=== PATIENT | female | born 1975 | race Two or more races ===

== ENCOUNTER 2024-03-06 09:40 | Outpatient (OUT) | payer OTHER, SELFPAY ==
--- NOTE | 2024-03-06 09:52 | MM_ITS ---
Patient Name: JIM HUERTA MR#: [id number] : 1975 Exam Date: 03/06/2024 Ordering Doctor: BHAVIN RAMSAY RADIOLOGY REPORT PROCEDURE: MM TOMOSYNTHESIS SCREENING BI COMPARISON: MG MAMM SCREEN 3D SHELL CAD, 09/03/2022. MG MAMM SCREEN SHELL W CAD, 03/21/2019. MG MAMM SCREEN SHELL W CAD, 01/18/2018. MG MAMM SHELL SCRN W CAD DIG, 09/22/2016. INDICATIONS: screening Calculator Name NCI Breast Cancer Risk Assessment Tool 5 Year Breast Cancer Risk 0.80% Lifetime Breast Cancer Risk 6.30% Personal Breast Cancer No Personal Ovarian Cancer No Treatments None Family Cancers None LOCATION: [facility] BREAST COMPOSITION: There are scattered areas of fibroglandular density. FINDINGS: DIAGNOSTIC CATEGORY 1--NEGATIVE. RIGHT BREAST: No significant suspicious finding. No significant change has occurred. LEFT BREAST: No significant suspicious finding. No significant change has occurred. RECOMMENDATIONS: ROUTINE MAMMOGRAM AND CLINICAL EVALUATION IN 12 MONTHS. PLEASE NOTE: A NORMAL MAMMOGRAM DOES NOT EXCLUDE THE POSSIBILITY OF BREAST CANCER. A CLINICALLY SUSPICIOUS PALPABLE LUMP SHOULD BE BIOPSIED. Dictated by: Jamari Mariano M.D. on 03/07/2024 at 14:28 Approved by: Jamari Mariano M.D. on 03/07/2024 at 14:31
== END 2024-03-06 09:41 | disposition home or self-care (01) ==
LOC: MAMMO 09:43
PROVIDERS: PCP Nurse Practitioner; Visit Provider Nurse Practitioner
DX: Z12.31 Encounter for screening mammogram for malignant neoplasm of breast (principal)
CPT/HCPCS: 77063; 77067

== ENCOUNTER 2024-06-08 07:31 | Outpatient (OUT) | payer OTHER, SELFPAY ==
--- OUTSIDE RECORDS SUMMARY | 2024-06-08 07:34 | XMS_ITS | CCD ---
Author Organization [facility] Care Team Providers Care Conveyor Worker Name Role Phone LORENAC, DR GILBERT Admitting Unavailable MISC, DR GILBERT Attending Unavailable LOPEZBHAVIN Primary Care Unavailable [place], DR Mason Consulting Unavailable LOPEZBHAVIN Consulting Unavailable MISC, DR GILBERT Admitting Unavailable MISC, DR GILBERT Attending Unavailable LOPEZBHAVIN Primary Care Unavailable MISC, DR GILBERT Consulting Unavailable [employer] ACCOUNTANT-CABLE TELEVISION LINE TECHNICIAN, Bhavin J Primary Care Provid er CHELSEA GIRALDO Attending Unavailable BHAVIN LOPEZ Referring Unavailable BHAVIN LOPEZ Primary Care Unavailable MACI BACH Admitting Unavailable MACI BACH Attending Unavailable LOPEZRENZOBHAVIN Prashant Primary Care Unavailable LOPEZRENZOBHAVIN Prashant Primary Care Unavailable JOELLE FREEMAN Attending Unavailable BHAVIN LOPEZ Attending Unavailable LOPEZBHAVIN CASTRO Referring Unavailable LOPEZ, BHAVIN Prashant Primary Care Unavailable BHAVIN LOPEZ Attending Unavailable LOPEZTURNER CASTROE Prashant Referring Unavailable LOPEZ, BHAVIN J Primary Care Unavailable BHAVIN LOPEZ Attending Unavailable BHAVIN LOPEZ Referring Unavailable LOPEZRENZOBHAVIN J Primary Care Unavailable Allergies Allergy Classification Reported Allergen(s) Allergy Type Date of Onset Reaction(s) Facility (4 sources) Lisinopril; Translations: [LISINOPRIL] Drug [facility]ergy [facility]-2018 [facility] Phone: Medications Current Medications Medication Drug Class(es) Dates Sig (Normalized) Sig (Original) amLODIPine 5 mg oral tablet (3 sources) Dihydropyridine Calcium Channel Char Start: 10-12-2023 End: 12-14-2023 take 1 tablet by mouth in the morning amLODIPine (NORVASC) 5 mg tablet Indications: Essential hypertension TAKE 1 TABLET(5 MG) BY MOUTH IN THE MORNING 90 tablet 1 12/14/2023 Active blood-glucose meter misc (2 sources) Start: 04-28-2018 blood-glucose meter misc Indications: Elevated glucose Select type paid for by insurance 1 each 0 04/28/2018 Active glyBURIDE 2.5 mg / metFORMIN hydrochloride 500 mg oral tablet (2 sources) Biguanide, Sulfonylurea Start: 12-14-2023 take 1 tablet by mouth once in the morning glyBURIDE-metFORMIN (GLUCOVANCE) 2.5-500 mg per tablet Indications: Type 2 diabetes mellitus without complication, without long-term current use of insulin ([facility]) Take 1 tablet by mouth in the morning and 1 tablet in the evening. Take with meals. 180 tablet 1 12/14/2023 Active norethindrone 0.35 mg oral tablet (2 sources) Start: 04-27-2023 take 1 tablet by mouth in the morning norethindrone (INCASSIA) 0.35 mg tablet Indications: Surveillance of contraceptive pill Take 1 tablet (0.35 mg total) by mouth in the morning. 84 tablet 3 04/27/2023 Active rosuvastatin calcium 5 mg oral tablet (3 sources) HMG-CoA Reductase Inhibitor Start: 09-01-2023 End: 12-16-2023 take 1 tablet by mouth in the morning rosuvastatin (CRESTOR) 5 mg tablet Indications: Mixed hyperlipidemia TAKE 1 TABLET(5 MG) BY MOUTH IN THE MORNING 90 tablet 2 12/16/2023 Active Completed/Discontinued Medications Medication Drug Class(es) Dates Sig (Normalized) Sig (Original) 24 hr metFORMIN hydrochloride 750 mg extended release oral tablet (1 source) Biguanide Start: 10-12-2023 End: 12-14-2023 take 1 tablet by mouth once daily at mealtime metFORMIN XR (GLUCOPHAGE XR) 750 mg 24 hr tablet Indications: Type 2 diabetes mellitus without complication, without long-term current use of insulin ([facility]) TAKE 1 TABLET(750 MG) BY MOUTH EVERY MORNING AND IN THE EVENING WITH MEALS 180 tablet 1 10/12/2023 12/14/2023 Discontinued (Therapy completed) Problems Active Problems Problem Classification Problem Date Documented Da te Episodic/Chronic Complications of surgical procedures or medical care (1 source) Postprocedural hemorrhage of a digestive system organ or structure following a digestive system procedure; Translations: [Postprocedural hemorrhage of a digestive system organ or structure following a digestive system procedure] Onset: 06-06-2024 Episodic Diabetes mellitus without complication (5 sources) Type 2 diabetes mellitus without complication; Translations: [Type 2 diabetes mellitus without complications] Onset: 04-29-2020 12-13-2023 Chronic Disorders of lipid metabolism (2 sources) Mixed hyperlipidemia; Translations: [Mixed hyperlipidemia] 12-14-2023 Chronic Essential hypertension (5 sources) Essential hypertension; Translations: [Essential (primary) hypertension] Onset: 04-29-2020 12-14-2023 Chronic Gastrointestinal hemorrhage (1 source) Rectal hemorrhage Onset: 06-06-2024 Episodic Other and unspecified benign neoplasm (1 source) Polyp of colon; Translations: [Polyp of colon] Onset: 06-02-2024 Episodic Other gastrointestinal disorders (1 source) Other fecal abnormalities; Translations: [Other fecal abnormalities] Onset: 05-22-2024 Episodic Other nutritional; endocrine; and metabolic disorders (2 sources) Body mass index 30+ - obesity; Translations: [Obesity, unspecified] Onset: 04-15-2022 04-15-2022 Chronic Other nutritional; endocrine; and metabolic disorders (1 source) Other obesity due to excess calories; Translations: [Other obesity due to excess calories] Onset: 06-06-2024 Chronic Other nutritional; endocrine; and metabolic disorders (1 source) Body mass index (BMI) 35.0-35.9, adult; Translations: [Body mass index (BMI) 35.0-35.9, adult] Onset: 06-06-2024 Chronic Other nutritional; endocrine; and metabolic disorders (1 source) Weight loss Onset: 06-06-2024 Episodic Other screening for suspected conditions (not mental disorders or infectious disease) (4 sources) Encounter for screening mammogram for malignant neoplasm of breast; Translations: [Encounter for screening for malignant neoplasm of small intestine] Onset: 09-03-2022 Episodic Unclassified (3 sources) CONTACT W/AND (SUSP) EXPOS COVID-19; Translations: [CONTACT W/AND (SUSP) EXPOS COVID-19] Onset: 10-09-2021 Unclassified (1 source) positive cologuard Onset: 06-02-2024 Past or Other Problems Problem Classification Problem Date Documented Da te Episodic/Chronic Mood disorders (2 sources) Mood disorders Onset: 12-14-2023 12-14-2023 Other upper respiratory infections (1 source) Acute upper respiratory infection, unspecified; Translations: [ACUTE UP RESPIRATORY INFECTION UNS] Onset: 10-09-2021 Episodic Unclassified (1 source) CONTACT W/AND (SUSP) EXPOS COVID-19; Translations: [CONTACT W/AND (SUSP) EXPOS COVID-19] Onset: 10-06-2021 Unclassified (2 sources) Onset: 12-14-2023 12-14-2023 Results Test Name Value Interpretation Reference Range Facil ity BASIC METABOLIC PANLon 06-06 Anion gap [Moles/Vol] 8 mmol/L Normal 5-15 [facility] Comment on above: Performed By: #### P INR, 35164-7, BMP, CBCA #### [facility] ([id number]) [address] [place] [address] 85737 Calcium [Mass/Vol] 8.7 mg/dL Normal 8.5-10.5 [facility] Comment on above: Performed By: #### P INR, 58565-7, BMP, CBCA #### [facility] ([id number]) [address] [place] [address] 15548 Chloride [Moles/Vol] 101 mmol/L Normal 98-109 [facility] Comment on above: Performed By: #### P INR, 49095-4, BMP, CBCA #### [facility] ([id number]) [address] [place] [address] 58548 CO2 [Moles/Vol] 28 mmol/L Normal 22-32 [facility] Comment on above: Performed By: #### P INR, 28291-2, BMP, CBCA #### [facility] ([id number]) [address] [place] [address] 17229 Creatinine [Mass/Vol] 0.60 mg/dL Normal 0.40-1.00 [facility] Comment on above: Result Comment: METH OD TRACEABLE TO IDMS STANDARD Performed By: #### P INR, 03943-7, BMP, CBCA #### [facility] ([id number]) [address] [place] [address] 14654 eGFR (CKD-EPI) NON-RACE DEPENDENT >90 Normal >59 [facility] Comment on above: Result Comment: Reported eGFR is based on the CKD-EPI 2020 equation that does not use a race coefficient. Performed By: #### P INR, 76281-4, BMP, CBCA #### [facility] ([id number]) [address] [place] [address] 71795 Glucose [Mass/Vol] 147 mg/dL High 65-99 [facility] Comment on above: Performed By: #### P INR, 25372-6, BMP, CBCA #### [facility] ([id number]) [address] [place] [address] 84844 Potassium [Moles/Vol] 3.1 mmol/L Low 3.5-5.0 [facility] Comment on above: Performed By: #### P INR, 38008-6, BMP, CBCA #### [facility] ([id number]) [address] [place] [address] 65618 Sodium [Moles/Vol] 137 mmol/L Normal 134-146 [facility] Comment on above: Performed By: #### P INR, 59021-2, BMP, CBCA #### [facility] ([id number]) [address] [place] [address] 61386 Urea nitrogen [Mass/Vol] 8 mg/dL Normal 5-23 [facility] Comment on above: Performed By: #### P INR, 11026-1, BMP, CBCA #### [facility] ([id number]) [address] [place] [address] 03708 CBC AND AUTO DIFFon 08-20-20 24 ABSOLUTE BASOPHIL 0.1 X10E9/L Normal 0.0-0.2 [facility] Comment on above: Performed By: #### P INR, 44370-5, BMP, CBCA #### [facility] ([id number]) [address] [place] [address] 54367 ABSOLUTE NEUTROPHIL 5.3 X10E9/L Normal 1.5-6.6 [facility] Comment on above: Performed By: #### P INR, 07077-1, BMP, CBCA #### [facility] ([id number]) [address] [place] [address] 06427 Basophils/100 WBC (Bld) 1.2 % Normal [facility] Comment on above: Performed By: #### P INR, 18039-1, BMP, CBCA #### [facility] ([id number]) [address] [place] [address] 86426 Eosinophils (Bld) [#/Vol] 0.1 10*3/uL Normal 0.0-0.4 [facility] Comment on above: Performed By: #### P INR, 36732-2, BMP, CBCA #### [facility] ([id number]) [address] [place] [address] 33125 Eosinophils/100 WBC (Bld) 1.5 % Normal [facility] Comment on above: Performed By: #### P INR, 80938-1, BMP, CBCA #### [facility] ([id number]) [address] [place] [address] 37761 Erythrocyte distribution width (RBC) [Ratio] 14.2 % Normal 11.5-15.0 [facility] Comment on above: Performed By: #### P INR, 33030-7, BMP, CBCA #### [facility] ([id number]) [address] [place] [address] 68151 Hematocrit (Bld) [Volume fraction] 41.7 % Normal 35-47 [facility] Comment on above: Performed By: #### P INR, 98202-7, BMP, CBCA #### [facility] ([id number]) [address] [place] [address] 86384 Hemoglobin (Bld) [Mass/Vol] 13.9 g/dL Normal 11.7-15.5 [facility] Comment on above: Performed By: #### P INR, 66849-9, BMP, CBCA #### [facility] ([id number]) [address] [place] [address] 39884 Lymphocytes (Bld) [#/Vol] 1.1 10*3/uL Normal 1.0-3.5 [facility] Comment on above: Performed By: #### P INR, 32142-1, BMP, CBCA #### [facility] ([id number]) [address] [place] [address] 47664 Lymphocytes/100 WBC (Bld) 15.2 % Normal [facility] Comment on above: Performed By: #### P INR, 96667-0, BMP, CBCA #### [facility] ([id number]) [address] [place] [address] 40170 MCH (RBC) [Entitic mass] 28.2 pg Normal 27-34 [facility] Comment on above: Performed By: #### P INR, 66823-7, BMP, CBCA #### [facility] ([id number]) [address] [place] [address] 16159 MCHC (RBC) [Mass/Vol] 33.2 g/dL Normal 32-36 [facility] Comment on above: Performed By: #### P INR, 21057-3, BMP, CBCA #### [facility] ([id number]) [address] [place] [address] 48006 MCV (RBC) [Entitic vol] 85 fL Normal 80-100 [facility] Comment on above: Performed By: #### P INR, 10416-1, BMP, CBCA #### [facility] ([id number]) [address] [place] [address] 64143 Monocytes (Bld) [#/Vol] 0.5 10*3/uL Normal 0-0.9 [facility] Comment on above: Performed By: #### P INR, 06155-5, BMP, CBCA #### [facility] ([id number]) [address] [place] [address] 87804 Monocytes/100 WBC (Bld) 6.6 % Normal [facility] Comment on above: Performed By: #### P INR, 25294-4, BMP, CBCA #### [facility] ([id number]) [address] [place] [address] 92776 Neutrophils/100 WBC (Bld) 75.5 % Normal [facility] Comment on above: Performed By: #### P INR, 42894-1, BMP, CBCA #### [facility] ([id number]) [address] [place] [address] 49825 Platelet mean volume (Bld) [Entitic vol] 9.3 fL Normal 7-12 [facility] Comment on above: Performed By: #### P INR, 75405-4, BMP, CBCA #### [facility] ([id number]) [address] [place] [address] 81962 Platelets (Bld) [#/Vol] 283 10*3/uL Normal 150-450 [facility] Comment on above: Performed By: #### P INR, 62106-0, BMP, CBCA #### [facility] ([id number]) [address] [place] [address] 68209 RBC COUNT 4.91 X10E12/L Normal 3.80-5.20 [facility] Comment on above: Performed By: #### P INR, 85144-2, BMP, CBCA #### [facility] ([id number]) [address] [place] [address] 75617 WBC (Bld) [#/Vol] 7.0 10*3/uL Normal 4.0-11.0 [facility] Comment on above: Performed By: #### P INR, 63281-0, BMP, CBCA #### [facility] ([id number]) [address] [place] [address] 92515 PROTIME AND INRon 06-06-2024 INR Coag (PPP) [Relative time] 1.0 {INR} Normal 0.8-1.1 [facility] Comment on above: Performed By: #### P INR, 70412-3, BMP, CBCA #### [facility] ([id number]) [address] [place] [address] 94718 PT Coag (PPP) [Time] 11.1 s Normal 9.8-13.2 [facility] Comment on above: Result Comment: NEW REFERENCE RANGE Performed By: #### P INR, 88634-0, BMP, CBCA #### [facility] ([id number]) [address] [place] [address] 24366 aPTT Coag (PPP) [Time]on aPTT Coag (Bld) [Time] 34 s Normal 26-37 [facility] Comment on above: Result Comment: NEW REFERENCE RANGE Performed By: #### P INR, 24199-5, BMP, CBCA #### [facility] ([id number]) [address] [place] [address] 40281 Glucose Glucometer (BldC) [M ass/Vol]on 06-02-2024 Glucose [Mass/Vol] 97 mg/dL Normal 65-99 [facility] Surgical Pathologyon 024 Surgical Pathology Normal [facility] Comment on above: Result Comment: [facility] [address] [place] [address] Surgical Pathology Consultation Patient Name:JIM HUERTA:1975 (Age: 48)Gender:FTaken:4Reported:4Physician(s):Maci Bach MD ([phone])Copy To: Rec. #:[id number]: #[id number] Final Pathologic Diagnosis 1. Colon at 35 cm, polypectomy: Fragments of tubular adenoma. 2. Colon at 40 cm, polypectomy: Tubular adenoma. 3. Colon at 20 cm, polypectomy: Tubular adenoma, 1 cm. Lesional cells present at the peripheral stalk tissue edge. 4. Colon at 15 cm, polypectomy: Hyperplastic polyp. Report Electronically Signed Out 06/06/2024paty Cisneros MD Interpretation performed [facility] [place] [address], License number: [id number]. Clinical History Positive cologuard. 1. Snared a polyp at 35cm. 2. Snared a polyp at 40cm. 3. Snared a polyp at 20cm. 4. Cold biopsy of a polyp at 15cm. Gross Description 1. Received in formalin labeled BRADLEY, polyp at 35 cm are seven light bush soft tissue bits admixed with friable vegetative material, 0.1-0.3 cm. The specimen is filtered and entirely submitted in a single cassette. (1, ns, [id number],m8) DM. 2. .Received in formalin labeled BRADLEY, polyp at 40 cm are four light bush soft tissue bits, 0.1-0.3 cm. The specimen is filtered and entirely submitted in a single cassette. (1, ns, [id number],m8) DM. 3. Received in formalin labeled BRADLEY, polyp at 20 cm is a bush pedunculated polyp, 1.0 x 0.8 x 0.5 cm. The resection margin is inked black. The polyp is serially sectioned and entirely submitted in a single cassette. (1, ns, [id number],m8) DM. 4. Received in formalin labeled BRADLEY, polyp at 15 cm is a light bush soft tissue bit, 0.3 cm. The specimen is filtered and entirely submitted in a single cassette. (1, ns, [id number],m8) DM. dm/06/05/2024GP Specimen(s) Received 1: Colon polyp at 35cm 2: Colon polyp at 40cm 3: Colon polyp at 20cm 4: Colon polyp at 15cm Fee Codes(s): 1; 11553 2; 20431 3; 57452 4; 35640 POCT Hemoglobin A1con 2023 HbA1c (Bld) [Mass fraction] 7.3 g/dL Abnormal 4 - 7 g/dL [employer] Interpretation and review of laboratory results Abnormal TIMPIK System MG MAMM SCREEN 3D SHELL CADon 09-03-2022 MG MAMM SCREEN 3D SHELL CAD Patient: JIM HUERTA Exam Date: 09/03/2022 : 1975 Gender:F Ordering : BHAVIN LOPEZ Admission #: [id number] Family : MILAGROS MORGAN Order #: [id number] CLICK HERE TO VIEW EXAM RADIOLOGY REPORT PROCEDURE: MAMMOGRAM SCREENING 3D BILATERAL CAD COMPARISON: MG MAMM SCREEN SHELL W CAD, 01/18/2018. MG MAMM SCREEN SHELL W CAD, 03/21/2019. INDICATIONS: Screening mammography Calculator Name NCI Breast Cancer Risk Assessment Tool 5 Year Breast Cancer Risk 0.70% Lifetime Breast Cancer Risk 6.40% Personal Breast Cancer No Personal Ovarian Cancer No Treatments None Family Cancers None LOCATION: [facility] BREAST COMPOSITION: Scattered areas fibroglandular density. FINDINGS: DIAGNOSTIC CATEGORY 1--NEGATIVE. NO CHANGE FROM COMPARISON ASSESSMENT. Scattered benign-appearing calcifications are present. Scattered benign-appearing lymph nodes are present. RIGHT BREAST: No significant suspicious finding. LEFT BREAST: No significant suspicious finding. RECOMMENDATIONS: ROUTINE MAMMOGRAM AND CLINICAL EVALUATION IN 12 MONTHS. PLEASE NOTE: A NORMAL MAMMOGRAM DOES NOT EXCLUDE THE POSSIBILITY OF BREAST CANCER. A CLINICALLY SUSPICIOUS PALPABLE LUMP SHOULD BE BIOPSIED. Dictated by: Marlon Narayan MD on 09/04/2022 at 10:30 Approved by: Marlon Narayan MD on 09/04/2022 at 10:32 Normal [facility] Covid-19 PCR (CVDTBH)on 09-18 SARS-CoV-2 (COVID-19) RNA MICHELLE+probe Ql (Unsp spec) Not detected Normal NOT DETECTED [facility] Comment on above: Result Comment: This test is not yet approved or cleared by the [place] FDA. When there are no FDA-approved or cleared tests available, and other criteria are met, FDA can make tests available under an emergency access mechanism called an Emergency Use Authorization (EUA). The EUA for this test is supported by the [place] of Health and Human Service's (HHS's) declaration that circumstances exist to justify the emergency use of in vitro diagnostics for the detection and/or diagnosis of the virus that causes COVID-19. This EUA will remain in effect (meaning this test can be used) for the duration of the COVID-19 declaration justifying emergency of IVDs, unless it is terminated or revoked by FDA (after which the test may no longer be used). When diagnostic testing is negative, the possibility of a false negative should be considered in the context of a patient's recent exposures and the presence of clinical signs and symptoms consistent with SARS-CoV-2. Performed By: #### C [facility] #### [facility] [address] [place] [address] Dr. Jimmy Estrada Vital Signs Date Time Vital Sign Value Performing Clinician Oswaldoi nydia 12-14-2023 15:35-0500 Body height 165.1 cm Bhavin Lopez APRN-CABLE TELEVISION LINE TECHNICIAN Work Phone: [facility] 12-14-2023 15:35-0500 Body mass index (BMI) [Ratio] 35.98 kg/m2 Bhavin Lopez APRN-CABLE TELEVISION LINE TECHNICIAN Work Phone: [facility] 12-14-2023 15:35-0500 Body temperature 98.6 [degF] Bhavin Lopez APRN-CABLE TELEVISION LINE TECHNICIAN [facility] 12-14-2023 15:35-0500 Body weight 98.07 kg Bhavin Lopez APRN-CABLE TELEVISION LINE TECHNICIAN Work Phone: [facility] [employer] [facility] 12-14-2023 15:35-0500 Diastolic blood pressure 86 mm[Hg] Bhavin Lopez COMPANY ACCOUNTANT-CABLE TELEVISION LINE TECHNICIAN Work Phone: [facility] 12-14-2023 15:35-0500 Heart rate 70 /min Bhavin Lopez COMPANY ACCOUNTANT-CABLE TELEVISION LINE TECHNICIAN Work Phone: [facility] 12-14-2023 15:35-0500 Respiratory rate 20 /min Bhavin Lopez COMPANY ACCOUNTANT-CABLE TELEVISION LINE TECHNICIAN Work Phone: [facility] 12-14-2023 15:35-0500 SaO2% (BldA) [Mass fraction] 95 % Bhavin Lopez COMPANY ACCOUNTANT-CABLE TELEVISION LINE TECHNICIAN Work Phone: [facility] 12-14-2023 15:35-0500 Systolic blood pressure 130 mm[Hg] Bhavin Lopez COMPANY ACCOUNTANT-CABLE TELEVISION LINE TECHNICIAN Work Phone: [facility] Encounters Encounter Date Encounter Type Care Provider Facility Start: 06-06-2024 End: 06-06-[address] [facility] Start: 06-06-2024 End: 06-06-2024 Emergency department patient visit [facility] Start: 06-02-2024 End: 06-02-2024 Evaluation and management of inpatient [facility] Start: 06-01-2024 End: 06-01-2024 ambulatory [facility] Start: 04-18-2024 End: 04-18-2024 ambulatory CHELSEA GIRALDO Not Available Start: 03-16-2024 End: 03-16-[address] [facility] Start: 12-16-2023 Refill Bhavin Prashant castro COMPANY ACCOUNTANT-CABLE TELEVISION LINE TECHNICIAN Work Phone: [facility] Comment on above: Mixed hyperlipidemia Start: 12-14-2023 End: 12-14-2023 Office outpatient visit 25 minutes Bhavin Lopez COMPANY ACCOUNTANT-CABLE TELEVISION LINE TECHNICIAN Work Phone: [facility] - [facility] Comment on above: Type 2 diabetes yvonne itus without complication, without long- term current use of insulin ([facility]) (Primary Dx); Essential hypertension; Mixed hyperlipidemia Start: 12-14-2023 End: 12-14-2023 ambulatory BHAVINDebbie MARKSILLO [facility] Start: 09-03-2022 End: 09-04-[address] DOCTOR CHAVEZ Facility:[facility] Start: 10-06-2021 End: 10-06-[address] DOCTOR CARRILLO Facility:[facility] Procedures Date Procedure Procedure Detail Performing Clinician Start: 12-14-2023 Hemoglobin glycosyla summer a1c Bhavin Marksillo [facility] Work Phone: Start: 12-14-2023 Adult depression scr eening assessment Bhavin Lopez [facility] Work Phone: Start: 09-14-2023 Diabetic retinal eye exam Bhavin Marksillo [facility] [facility] Work Phone: Start: 09-04-2022 Mammography Bhavin Quach savage [facility] Work Phone: Start: 04-15-2022 Microscopic observat ion [Identifier] in Cervix by Cyto stain Bhavinerinn Lopez [facility] Work Phone: Start: 08-30-2021 Microalbumin [Mass/v olume] in Urine by Test strip Bhavin Lopez [facility] Work Phone: Plan of Treatment Date Care Activity Detail Author Start: 04-15-2025 Screening for malignant neoplasm of cervix Pap Smear [facility] Start: 12-14-2024 Adult BMI Follow Up Plan Adult BMI Follow Up Plan [facility] Start: 12-14-2024 Adult BMI Screening Adult BMI Screening [facility] Start: 12-14-2024 Depression Screening Depression Screening [facility] Start: 12-14-2024 Tobacco Screening Tobacco Screening [facility] Start: 09-14-2024 Glaucoma screening Diabetic Ophthalmology Exam [facility] Start: 09-01-2024 Adult BMI Follow Up Plan Adult BMI Follow Up Plan [facility] Start: 09-01-2024 Diabetic foot examination Diabetic Foot Exam [facility] Start: 04-29-2024 DTaP,Tdap and Td Vaccines (2 - Td or Tdap) DTaP,Tdap and Td Vaccines (2 - Td or Tdap) [facility] Start: 03-16-2024 End: 03-16-2024 Patient encounter procedure 03/16/2024 4:00 PM EDT Office Visit [facility] Internal Medicine - Family Medicine [address] [place] [id number] Bhavin Lopez [employer]LE[employer]ION LINE TECHNICIAN [address] [place] [phone] [facility] - [facility] Start: 09-04-2023 Screening for malignant neoplasm of breast Mammogram [facility] Start: 06-18-2023 COVID-19 Vaccine ( season) COVID-19 Vaccine () [facility] Start: 08-30-2022 Urine screening for protein Urine Microalbumin [facility] Start: 2021 Screening for malignant neoplasm of colon Colonoscopy [facility] Immunizations Immunization Date Immunization Notes Care Provider Fa cility 09-03-2021 influenza, injectabl e, quadrivalent, preservative free Bhavin oJhn [employer] ACCOUNT[employer] TELEVISION LINE TECHNICIAN Work Phone: [facility] 01-29-2021 COVID-19, mRNA, LNP- S, PF, 30mcg/0.3mL Dose Bhavin John [employer] TELEVISION LINE TECHNICIAN Work Phone: [facility] Work Phone: 01-29-2021 SARS-COV-2 (COVID-19 ) Vaccine, Unspecified Bhavin Lopez [employer] ACC[employer] TELEVISION LINE TECHNICIAN Work Phone: [facility] 08-07-2020 influenza, injectabl e, quadrivalent, preservative free Bhavin Lopez [employer] TELEVISION LINE TECHNICIAN Work Phone: [facility] 08-05-2019 Seasonal, quadrivale nt, recombinant, injectable influenza vaccine, preservative free Bhavin Lopez [employer] ACC[employer]-[facility] Work Phone: [facility] 09-26-2018 pneumococcal polysaccharide vaccine, 23 valent Bhavin Lopez APRN-[facility] Work Phone: [facility] 07-10-2018 influenza, injectabl e, quadrivalent, preservative free Bhavin Lopez [facility] Work Phone: [facility] 04-29-2014 tetanus toxoid, redu fabio diphtheria toxoid, and acellular pertussis vaccine, adsorbed Bhavin Lopez [facility] Work Phone: [facility] 11-04-2013 influenza virus vacc ine, unspecified formulation Bhavin Lopez [facility] Work Phone: [facility] Payers Date Payer Category Payer Private Health Insurance [employer] [id number] 2022-Present [phone] [address] [address] [place] [address] [id number] 2022 Unknown [id number] 1976 Unknown [id number] 1976 Unknown [id number]. [id number] 1976 Unknown [id number]. [id number] 1976 Unknown [id number]. [id number] 1976 Unknown [id number] [id number]. 2.1286 1976 Unknown [id number]. 2.1286 1976 Unknown [id number]. 2.1286 1976 Unknown [id number] [id number]. 2.1286 1976 Unknown [id number]. 2.1286 1959 Unknown [id number] Unknown [id number] Social History Date Type Detail Facility Start: 04-27-2023 Tobacco smoking stat [facility] Ex-smoker [facility] History of tobacco use Current smoker [facility] Start: 04-27-2023 Tobacco use and exposure Smokeless tobacco non-user [facility] Start: 12-14-2023 Alcohol intake Current non-dr chiropractic doctor of alcohol (finding) [facility] Start: 11-15-2020 End: 12-14-2023 History of Social function [facility] Start: 11-15-2020 End: 12-14-2023 Tobacco use panel [facility] How hard is it for y ou to pay for the very basics like food, housing, medical care, and heating Not hard at all [facility] Start: 1975 Sex Assigned At Not on file P [facility] Medical Equipment Procedure Code Equipment Code Equipment Origin al Text Equipment Identifier Dates 1 strip by miscellaneous route 2 (two) times a day. [id number] Start: 05-15-2020 Inject 1 strip i nto the skin See Admin Instructions. Monitor blood sugar twice daily and as needed [id number] Start: 08-28-2020 History of Present illness Narrative 12-14-2023 Bhavin Lopez APRN-BRONWYN - 12/14/2023 3:30 PM EST Note Date & Type Note Facility 12-14-2023 History of Present illness Narrative Images from the original note were not included. [address] [place] [address] SUBJECTIVE: Patient ID: Jim Huerta is a 48 y.o. female. Chief Complaint Patient presents with Diabetes Hypertension Presents for DM follow up today Relates she recently restarted keto dieting again Offers no complaints Diabetes She presents for her follow-up diabetic visit. She has type 2 diabetes mellitus. Her disease course has been stable. There are no hypoglycemic associated symptoms. Pertinent negatives for hypoglycemia include no headaches. Pertinent negatives for diabetes include no blurred vision, no chest pain, no polydipsia, no polyphagia, no polyuria and no visual change. There are no hypoglycemic complications. Symptoms are stable. There are no diabetic complications. Risk factors for coronary artery disease include dyslipidemia, diabetes mellitus, obesity and hypertension. Current diabetic treatment includes diet and oral agent, metformin.. She is compliant with treatment all of the time. Her weight is stable. She is following a low fat/cholesterol diet- KETO type dieting. She participates in exercise intermittently. Home blood sugar record trend: Is not routinely checking. An ANGELO inhibitor/angiotensin II receptor char is being taken. She does not see a nursing education consultant. Hyperlipidemia This is a chronic problem. The problem is controlled. Recent lipid tests were reviewed and are variable. Exacerbating diseases include diabetes and obesity. Pertinent negatives include no chest pain or shortness of breath. Current antihyperlipidemic treatment includes statins. The current treatment provides significant improvement of lipids. Risk factors for coronary artery disease include hypertension, diabetes mellitus, dyslipidemia and obesity. Hypertension This is a chronic problem. The problem is controlled. Pertinent negatives include no blurred vision, chest pain, headaches, palpitations, peripheral edema or shortness of breath. Agents associated with hypertension include oral contraceptives. Risk factors for coronary artery disease include diabetes mellitus, dyslipidemia, obesity and smoking/tobacco exposure. Past treatments include calcium channel blockers and ANGELO inhibitors. The current treatment provides significant improvement. There are no compliance problems. The following portions of the patient's history were reviewed and updated as appropriate: allergies, current medications, past family history, past medical history, past social history, past surgical history and problem list. Past Surgical History: Procedure Laterality Date SECTION breach DILATION AND CURETTAGE OF UTERUS 3 ab and 1 still born //neg for antiphospholipid work up Past Medical History: Diagnosis Date High cholesterol Obesity (BMI 35.0-39.9 without comorbidity) Immunization History Administered Date(s) Administered COVID-19, mRNA, LNP-S, PF, 30mcg/0.3mL Dose 01/08/2021, 01/29/2021, 09/25/2021 Influenza, Injectable, quadrivalent (PF) 07/10/2018, 08/07/2020, 09/03/2021 Influenza, Recombinant, Quadrivalent, Injectable, Preserv 08/05/2019 Influenza, Unspecified 11/04/2013 Pneumococcal Polysaccharide 09/26/2018 SARS-COV-2 (COVID-19) Vaccine, Unspecified 01/29/2021 Tdap 04/29/2014 REVIEW OF SYSTEMS: Review of Systems Constitutional: Negative for chills and fever. HENT: Negative. Eyes: Negative for visual disturbance. Respiratory: Negative for chest tightness. Gastrointestinal: Negative. Endocrine: Negative. Genitourinary: Negative for menstrual problem and pelvic pain. Musculoskeletal: Negative. Skin: Negative. Allergic/Immunologic: Negative. Neurological: Negative for syncope and facial asymmetry. Hematological: Does not bruise/bleed easily. Psychiatric/Behavioral: Negative. PHYSICAL EXAMINATION: Vitals: 12/14/23 1535 BP: 130/86 BP Site: Left Arm BP Postition: Sitting Pulse: 70 Resp: 20 Temp: 37 C (98.6 F) TempSrc: Oral SpO2: 95% Weight: 98.1 kg (216 lb 3.2 oz) Height: 165.1 cm (5' 5 ) Patient noted to have elevated BMI and the following intervention(s) were applied: encouragement to exercise. Physical Exam Vitals and nursing note reviewed. Constitutional: General: She is not in acute distress. Appearance: She is well-developed. She is not diaphoretic. HENT: Head: Normocephalic and atraumatic. Right Ear: Tympanic membrane and external ear normal. Left Ear: Tympanic membrane and external ear normal. Nose: Nose normal. Mouth/Throat: Mouth: Mucous membranes are moist. Pharynx: No oropharyngeal exudate. Eyes: General: Right eye: No discharge. Left eye: No discharge. Conjunctiva/sclera: Conjunctivae normal. Pupils: Pupils are equal, round, and reactive to light. Neck: Thyroid: No thyromegaly. Vascular: No JVD. Cardiovascular: Rate and Rhythm: Normal rate and regular rhythm. Heart sounds: Normal heart sounds. No murmur heard. No friction rub. No gallop. Pulmonary: Effort: Pulmonary effort is normal. Breath sounds: Normal breath sounds. Abdominal: General: Bowel sounds are normal. There is no distension. Palpations: Abdomen is soft. There is no mass. Tenderness: There is no abdominal tenderness. Musculoskeletal: General: Normal range of motion. Cervical back: Normal range of motion and neck supple. Lymphadenopathy: Cervical: No cervical adenopathy. Skin: General: Skin is warm and dry. Capillary Refill: Capillary refill takes less than 2 seconds. Neurological: Mental Status: She is alert and oriented to person, place, and time. Deep Tendon Reflexes: Reflexes are normal and symmetric. Psychiatric: Mood and Affect: Mood normal. Behavior: Behavior normal. Thought Content: Thought content normal. Judgment: Judgment normal. ASSESSMENT/PLAN: Jim was seen today for diabetes and hypertension. Diagnoses and all orders for this visit: Type 2 diabetes mellitus without complication, without long-term current use of insulin ([facility]) - POCT Hemoglobin A1c - glyBURIDE-metFORMIN (GLUCOVANCE) 2.5-500 mg per tablet; Take 1 tablet by mouth in the morning and 1 tablet in the evening. Take with meals. Essential hypertension - amLODIPine (NORVASC) 5 mg tablet; TAKE 1 TABLET(5 MG) BY MOUTH IN THE MORNING A1c 7.2% ( was 7.1%) Discontinue metformin. Start Glucovance 500 mg-2.5 mg oral twice daily. We did discuss Victoza today. She is not interested in doing injectables. She is still working on dietary control. Stopped her diet over the last several months, just returned back to keto diet end of October. Encourage routine home blood sugar monitoring, diet modification, and exercise regimen. Yearly eye exams Daily self skin foot checks HTN BP controlled Continue amlodipine Mixed hyperlipidemia Continue rosuvastatin ALL QUESTIONS ANSWERED Total time spent was 30 minutes: Preparing to see the patient (e.g., review of tests) Obtaining and/or reviewing separately obtained history Performing a medically appropriate examination and/or evaluation Counseling and educating the patient/family/caregiver Ordering medications, tests, or procedures Follow-up: 3 months FRIDA Zamora 12/14/23 1652 documented in this encounter [facility] Evaluation note Note Date & Type Note Facility Evaluation note Diagnosis Type 2 diabetes mellitus without complication, without long-term current use of insulin ([facility] [facility])- Primary Essential hypertension Unspecified essential hypertension Mixed hyperlipidemia documented in this encounter [facility] Evaluation note Note Date & Type Note Facility Evaluation note Diagnosis Mixed hyperlipidemia documented in this encounter [facility] Instructions Attachments Note Date & Type Note Facility Instructions The following attachments cannot be sent through Care Everywhere.Blood Glucose Monitoring (Venezuelan)documented in this encounter [facility] Instructions Note Date & Type Note Facility Instructions Not on filedocumented in this en counter [facility] Summary Purpose Family History No Family History Records FoundNo Family History Records FoundNo Family History Records FoundNo Family History Records Found Advance Directives No Advanced Directives Records FoundNo Advanced Directives Records FoundNo Advanced Directives Records FoundNo Advanced Directives Records Found Additional Source Comments INFORMATION SOURCE (unrecogn ized section and content) DATE CREATED AUTHOR 09/07/2022 [facility] DATE CREATED AUTHOR AUTHOR'S ORGANIZ ATION 04/20/2024 [facility] EPIC DATE CREATED AUTHOR AUTHOR'S ORGANIZ ATION 06/07/2024 [facility] DATE CREATED AUTHOR AUTHOR'S ORGANIZ ATION 06/08/2024 [facility] Reason for Visit (unrecogniz ed section and content) Reason Comments Diabetes Hypertension Reason Comments Med Refill Care Teams (unrecognized sec tion and content) Conveyor Worker Relationship Specialty Start Date End Date Bhavin Lopez APRN-CNP [address] [place] [id number] PCP - General Family Medicine 07/14/19 Conveyor Worker Relationship Specialty Start Date End Date Bhavin Lopez APRN-CNP [address] [place] [phone] PCP - General Family Medicine 07/14/19 FOR RECORDS PERTAINING TO PATIENTS WHO ARE OR HAVE BEEN ENROLLED IN A CHEMICAL DEPENDENCY/SUBSTANCEABUSE PROGRAM, SOME INFORMATION MAY BE OMITTED. This clinical summary was aggregated from multiple sources. Caution should be exercised in using it in the provision of clinical care. This summary normalizes information from multiple sources, and as a consequence, information in this document may materially change the coding, format and clinical context of patient data. In addition, data may be omitted in some cases. CLINICAL DECISIONS SHOULD BE BASED ON THE PRIMARY CLINICAL RECORDS. [facility] [employer] [facility]. provides no warranty or guarantee of the accuracy or completeness of information in this document.
[2024-06-08 07:57] LABS: Basophils Absolute Auto 0.1 10^3/uL (0.0-0.1); Basophils Percent Auto 1.1 % (0.2-2.0); Eosinophils Absolute Auto 0.1 10^3/uL (0.0-0.7); Eosinophils Percent Auto 2.1 % (0.9-7.0); Hematocrit 35.5 % (36.0-48.0); Hemoglobin 11.8 g/dL (12.0-16.0); Immature Granulocytes Abs Auto 0.01 10^3/uL (0.00-0.03); Immature Granulocytes Pct Auto 0.2 % (0.0-0.5); Lymphocytes Absolute Auto 1.4 10^3/uL (1.2-3.8); Lymphocytes Percent Auto 22.3 % (20.5-60.0); Mean Corpuscular HGB Conc 33.2 g/dL (29.9-35.2); Mean Corpuscular Hemoglobin 28.4 pg (26.7-34.0); Mean Corpuscular Volume 85.5 fL (81.0-99.0); Mean Platelet Volume 10.9 fL (9.5-13.5); Monocytes Absolute Auto 0.5 10^3/uL (0.3-0.8); Neutrophils Absolute Auto 4.1 10^3/uL (1.4-6.5); Neutrophils Percent Auto 66.3 % (43.0-75.0); Platelet Count 274 10^3/uL (150-450); Red Blood Count 4.15 10^6/uL (4.20-5.40); Red Cell Distribution Width 13.2 % (11.0-15.0); White Blood Count 6.2 10^3/uL (4.0-11.0)
== END 2024-06-08 07:32 | disposition home or self-care (01) ==
LOC: LAB 07:32
PROVIDERS: PCP Nurse Practitioner; Visit Provider Internal Medicine
DX: K62.5 Hemorrhage of anus and rectum (principal)
CPT/HCPCS: 36415; 85025

== ENCOUNTER 2025-07-20 08:14 | Outpatient (OUT) | payer OTHER, SELFPAY ==
--- OUTSIDE RECORDS SUMMARY | 2025-07-20 08:20 | XMS_ITS | CCD ---
Author Organization [facility] Care Team Providers Care Venetian Blind Washer Name Role Phone MISC, DR GILBERT Admitting Unavailable MISC, DR GILBERT Attending Unavailable LOPEZ, BHAVIN Primary Care Unavailable Percival, DR Mason Consulting Unavailable LOPEZBHAVIN Consulting Unavailable MISC, DR GILBERT Admitting Unavailable MISC, DR GILBERT Attending Unavailable LOPEZBHAVIN Primary Care Unavailable MISC, DR GILBERT Consulting Unavailable BHAVIN LOPEZ Referring Unavailable LOPEZBHAVIN CASTRO Primary Care Unavailable MACI BACH Admitting Unavailable MACI BACH Attending Unavailable BHAVIN LOPEZ Primary Care Unavailable LOPEZBHAVIN CASTRO Primary Care Unavailable ANGELITO FREEMAN Attending Unavailable BHAVIN LOPEZ Referring Unavailable LOPEZBHAVIN Primary Care Unavailable Unavailable Primary Care Provider Unavailpeyton e Lopez HEALTH CARE CONSULTANT-FOOTBALL PAD REPAIRER, Bhavin Prashant Primary Care Provid er Lopez HEALTH CARE CONSULTANT-FOOTBALL PAD REPAIRER, Bhavin J Primary Care Provid er Lopez OFFICE AUTOMATION CLERK, Bhavin Unavailable [phone] Lopez OFFICE AUTOMATION CLERK, Bhavin Unavailable [phone] CHARLETTE SAMPSON Attending Unavailable CHARLETTE SAMPSON Attending Unavailable CHELSEA GIRALDO Attending Unavailable ANGELITO LANG Attending Unavailable Lopez HEALTH CARE CONSULTANT-FOOTBALL PAD REPAIRERBhavin Primary Care Provid er BHAVIN LOPEZ Attending Unavailable BHAVIN LOPEZ Referring Unavailable LOPEZRENZO CASTROERIE Prashant Primary Care Unavailable BHAVIN LOPEZ Attending Unavailable BHAVIN LOPEZ Referring Unavailable LOPEZBHAVIN CASTRO Primary Care Unavailable MACI BACH Attending Unavailable BHAVIN LOPEZ Referring Unavailable LOPEZBHAVIN CASTRO Primary Care Unavailable LOPEZBHAVIN CASTRO Referring Unavailable LOPEZBHAVIN Primary Care Unavailable LOPEZ, BHAVIN J Attending Unavailable LOPEZ, BHAVIN J Referring Unavailable LOPEZ, BHAVIN J Primary Care Unavailable LOPEZ, BHAVIN J Attending Unavailable LOPEZ, BHAVIN J Referring Unavailable LOPEZ, BHAVIN J Primary Care Unavailable LOPEZ, BHAVIN J Attending Unavailable LOPEZ, BHAVIN J Referring Unavailable LOPEZ, BHAVIN J Primary Care Unavailable LOPEZ, BHAVIN J Attending Unavailable LOPEZ, BHAVIN J Referring Unavailable LOPEZ, BHAVIN J Primary Care Unavailable LOPEZ, BHAVIN J Attending Unavailable LOPEZ, BHAVIN J Referring Unavailable LOPEZ, BHAVIN J Primary Care Unavailable LOPEZ, BHAVIN J Attending Unavailable LOPEZ, BHAVIN J Referring Unavailable LOPEZ, BHAVIN J Primary Care Unavailable LOPEZ, BHAVIN J Attending Unavailable LOPEZ, BHAVIN J Referring Unavailable LOPEZ, BHAVIN J Primary Care Unavailable LOPEZ, BHAVIN J Attending Unavailable LOPEZ, BHAVIN J Referring Unavailable LOPEZ, BHAVIN J Primary Care Unavailable Jose Juan Feliciano Primary Care Provider MARIN RIZVI Primary Care Unavailable PROVIDER, UNKNOWN Attending Unavailable PROVIDER, UNKNOWN Admitting Unavailable DEVYN VALLES Referring Unavailable Allergies Allergy Classification Reported Allergen(s) Allergy Type Date of Onset Reaction(s) Facility (20 sources) Lisinopril; Translations: [LISINOPRIL] Drug Allergy 01-24-2018 Cough [facility] Rep[facility] Medications Current Medications Medication Drug Class(es) Dates Sig (Normalized) Sig (Original) amLODIPine 5 mg oral tablet (20 sources) Dihydropyridine Calcium Channel Lynne Start: 09-01-2023 End: 05-29-2025 take 1 tablet by mouth in the morning amLODIPine (NORVASC) 5 mg tablet Indications: Essential hypertension TAKE 1 TABLET(5 MG) BY MOUTH IN THE MORNING 90 tablet 1 05/29/2025 Active azithromycin 250 mg oral tablet (1 source) Macrolide Antimicrobial Start: 10-05-2024 End: 10-09-2024 azithromycin (ZITHROMAX) 250 mg tablet Indications: Acute bacterial sinusitis Take 2 tablets the first day, then 1 tablet daily for 4 days. 6 tablet 10/05/2024 10/09/2024 Active blood-glucose meter misc (20 sources) Start: 04-28-2018 blood-glucose meter misc Indications: Elevated glucose Select type paid for by insurance 1 each 04/28/2018 Active Start: 04-28-2018 blood-glucose meter misc Indications: Elevated glucose Select type paid for by insurance 1 each 0 04/28/2018 Active cefuroxime 250 mg oral tablet (8 sources) Cephalosporin Antibacterial Start: 09-29-2024 End: 11-02-2024 take 1 tablet by mouth twice daily cefuroxime (Ceftin) 250 MG tablet Indications: Acute bronchitis, unspecified organism 1 po bid until all taken. 14 tablet 09/29/2024 Active dexamethasone 1 mg/ml / tobramycin 3 mg/ml ophthalmic suspension (3 sources) Aminoglycoside Antibacterial, Corticosteroid Start: 12-11-2024 End: 12-21-2024 tobramycin-dexAME THasone (Tobradex) ophthalmic suspension Indications: Chalazion of right upper eyelid Administer 2 drops into both eyes in the morning and 2 drops at noon and 2 drops in the evening and 2 drops before bedtime. Do all this for 10 days. 5 mL 12/11/2024 12/21/2024 Active doxycycline hyclate 100 mg delayed release oral tablet (3 sources) Tetracycline-class Drug Start: 12-11-2024 End: 12-21-2024 doxycycline (Doryx) 100 MG EC tablet Indications: Chalazion of right upper eyelid Take 1 tablet (100 mg) by mouth in the morning and 1 tablet (100 mg) before bedtime. Do all this for 10 days. Do not crush or chew. Take with a full glass of water and do not lie down for at least 30 minutes after.. 20 tablet 12/11/2024 12/21/2024 Active glyBURIDE 2.5 mg / metFORMIN hydrochloride 500 mg oral tablet (20 sources) Biguanide, Sulfonylurea Start: 12-11-2024 take 1 tablet by mouth in the morning glyBURIDE-metFORM IN (Glucovance) 2.5-500 MG tablet Take 1 tablet by mouth in the morning and 1 tablet in the evening. Take with meals. 12/11/2024 Active Start: 03-16-2024 End: 09-29-2024 take 1 tablet by mouth in the morning glyBURIDE-metFORMIN (Glucovance) 2.5-500 MG tablet Take 1 tablet by mouth in the morning and 1 tablet in the evening. Take with meals. 03/16/2024 09/29/2024 Discontinued Start: 12-14-2023 End: 05-29-2025 take 1 tablet by mouth once at mealtime glyBURIDE-metFORMIN (GLUCOVANCE) 2.5-500 mg per tablet Indications: Type 2 diabetes mellitus without complication, without long-term current use of insulin ([facility]) TAKE 1 TABLET BY MOUTH IN THE MORNING AND IN THE EVENING WITH MEALS 180 tablet 05/29/2025 Active norethindrone 0.35 mg oral tablet (20 sources) Start: 04-27-2023 End: 06-21-2024 take 1 tablet by mouth once daily in the morning, then take 1 tablet by mouth in the morning norethindrone (INCASSIA) 0.35 mg tablet Indications: Surveillance of contraceptive pill Take 1 tablet (0.35 mg total) by mouth every morning. TAKE 1 TABLET (0.35 MG TOTAL) BY MOUTH IN THE MORNING 84 tablet 3 06/21/2024 Active penicillin v potassium 500 mg oral tablet (1 source) Start: 08-02-2024 End: 08-12-2024 take 1 tablet by mouth twice daily penicillin v potassium (VEETIDS) 500 mg tablet Indications: Strep throat Take 1 tablet (500 mg total) by mouth 2 (two) times daily at 0800 and 1500 for 10 days. 20 tablet 08/02/2024 08/12/2024 Active phentermine hydrochloride 37.5 mg oral tablet (20 sources) Sympathomimetic Amine Anorectic Start: 06-06-2024 End: 01-31-2025 take 31-31.9 tablets by mouth once daily before breakfast phentermine (ADIPEX-P) 37.5 mg tablet Indications: Class 1 obesity due to excess calories without serious comorbidity with body mass index (BMI) of 31.0 to 31.9 in adult Take 1 tablet (37.5 mg total) by mouth every morning before breakfast. 30 tablet 11/27/2024 01/31/2025 Discontinued (Therapy completed) rosuvastatin calcium 5 mg oral tablet (20 sources) HMG-CoA Reductase Inhibitor Start: 05-28-2025 take 1 tablet by mouth in the morning rosuvastatin (CRESTOR) 5 mg tablet Indications: Mixed hyperlipidemia Take 1 tablet (5 mg total) by mouth in the morning. 90 tablet 05/28/2025 Active Start: 03-20-2024 End: 05-28-2025 take 1 tablet by mouth in the morning rosuvastatin (CRESTOR) 5 mg tablet Indications: Mixed hyperlipidemia Take 1 tablet (5 mg total) by mouth in the morning. 90 tablet 2 01/31/2025 05/28/2025 Discontinued (Reorder) Start: 09-01-2023 End: 03-17-2024 take 1 tablet by mouth in the morning rosuvastatin (CRESTOR) 5 mg tablet Indications: Mixed hyperlipidemia TAKE 1 TABLET(5 MG) BY MOUTH IN THE MORNING 90 tablet 2 12/16/2023 03/17/2024 Discontinued (Reorder) Completed/Discontinued Medications Medication Drug Class(es) Dates Sig (Normalized) Sig (Original) 24 hr metFORMIN hydrochloride 750 mg extended release oral tablet (9 sources) Biguanide Start: 10-12-2023 End: 12-14-2023 take 1 tablet by mouth once daily at mealtime metFORMIN XR (GLUCOPHAGE XR) 750 mg 24 hr tablet Indications: Type 2 diabetes mellitus without complication, without long-term current use of insulin ([facility]) TAKE 1 TABLET(750 MG) BY MOUTH EVERY MORNING AND IN THE EVENING WITH MEALS 180 tablet 1 10/12/2023 12/14/2023 Discontinued (Therapy completed) Start: 10-07-2023 metFORMIN XR ( Glucophage-XR) 750 MG 24 hr tablet 10/07/2023 Active Start: 07-20-2023 End: 10-12-2023 take 1 tablet by mouth every twenty-four hours at mealtime metFORMIN XR (GLUCOPHAGE XR) 750 mg 24 hr tablet Indications: Type 2 diabetes mellitus without complication, without long-term current use of insulin ([facility]) TAKE 1 TABLET(750 MG) BY MOUTH IN THE MORNING AND IN THE EVENING WITH MEALS 180 tablet 1 07/20/2023 10/12/2023 Discontinued methylPREDNISolone (3 sources) Corticosteroid Start: 07-05-2024 End: 09-04-2024 methylPREDNISolone (MEDROL, MARTINA,) 4 mg tablet Indications: Poison zack follow package directions 21 tablet 07/05/2024 09/04/2024 Discontinued (Therapy completed) Start: 07-05-2024 methylPREDNISo lone (MEDROL, MARTINA,) 4 mg tablet Indications: Poison zack follow package directions 21 tablet 07/05/2024 Active Problems Active Problems Problem Classification Problem Date Documented Da te Episodic/Chronic Acute bronchitis (2 sources) Acute bronchitis; Translations: [Acute bronchitis, unspecified] 09-29-2024 Episodic Complications of surgical procedures or medical care (1 source) Postprocedural hemorrhage of a digestive system organ or structure following a digestive system procedure; Translations: [Postprocedural hemorrhage of a digestive system organ or structure following a digestive system procedure] Onset: 06-06-2024 Episodic Diabetes mellitus without complication (20 sources) Type 2 diabetes mellitus without complication; Translations: [Type 2 diabetes mellitus without complications] Onset: 04-29-2020 04-29-2020 Chronic Disorders of lipid metabolism (9 sources) Mixed hyperlipidemia; Translations: [Mixed hyperlipidemia] Onset: 01-31-2025 11-02-2024 Chronic Essential hypertension (20 sources) Essential hypertension; Translations: [Essential (primary) hypertension] Onset: 04-29-2020 04-29-2020 Chronic Intestinal infection (2 sources) Infectious diarrheal disease; Translations: [Viral intestinal infection, unspecified] 09-29-2024 Episodic Other and unspecified benign neoplasm (1 source) Polyp of colon; Translations: [Polyp of colon] Onset: 06-02-2024 Episodic Other eye disorders (1 source) Chalazion of right upper eyelid; Translations: [Chalazion right upper eyelid] 12-11-2024 Episodic Other gastrointestinal disorders (1 source) Other fecal abnormalities; Translations: [Other fecal abnormalities] Onset: 05-22-2024 Episodic Other nutritional; endocrine; and metabolic disorders (7 sources) Obesity caused by energy imbalance; Translations: [Class 1 obesity due to excess calories with serious comorbidity and body mass index (BMI) of 33.0 to 33.9 in adult] 10-05-2024 Chronic Other nutritional; endocrine; and metabolic disorders (13 sources) Obese class I; Translations: [Obesity (BMI 30.0-34.9)] Onset: 04-15-2022 06-21-2024 Chronic Other nutritional; endocrine; and metabolic disorders (12 sources) Body mass index 30+ - obesity; Translations: [Obesity, unspecified] Onset: 04-15-2022 04-15-2022 Chronic Other nutritional; endocrine; and metabolic disorders (1 source) Body mass index (BMI) 33.0-33.9, adult; Translations: [Body mass index (BMI) 33.0-33.9, adult] Onset: 08-02-2024 Chronic Other nutritional; endocrine; and metabolic disorders (1 source) Other obesity due to excess calories; Translations: [Other obesity due to excess calories] Onset: 06-06-2024 Chronic Other nutritional; endocrine; and metabolic disorders (1 source) Body mass index (BMI) 35.0-35.9, adult; Translations: [Body mass index (BMI) 35.0-35.9, adult] Onset: 06-06-2024 Chronic Other screening for suspected conditions (not mental disorders or infectious disease) (5 sources) Encounter for screening mammogram for malignant neoplasm of breast; Translations: [Encounter for screening for malignant neoplasm of small intestine] Onset: 09-03-2022 Episodic Skin and subcutaneous tissue infections (2 sources) Preseptal cellulitis; Translations: [Periorbital cellulitis] 12-11-2024 Episodic Unclassified (3 sources) CONTACT W/AND (SUSP) EXPOS COVID-19; Translations: [CONTACT W/AND (SUSP) EXPOS COVID-19] Onset: 10-09-2021 Unclassified (1 source) positive cologuard Onset: 06-02-2024 Unclassified (1 source) Obesity, class 1; Translations: [Obesity, class 1] Onset: 08-02-2024 Unclassified (1 source) Weight Check Onset: 07-05-2024 Unclassified (1 source) Annual Exam Onset: 06-21-2024 Unclassified (1 source) Gynecologic Exam Onset: 06-20-2024 Unclassified (1 source) go over results Onset: 06-09-2024 Past or Other Problems Problem Classification Problem Date Documented Da te Episodic/Chronic Allergic reactions (2 sources) Contact dermatitis due to poison zack; Translations: [Allergic contact dermatitis due to plants, except food] Onset: 07-05-2024 07-05-2024 Episodic Bacterial infection; unspecified site (1 source) Other specified bacterial agents as the cause of diseases classified elsewhere; Translations: [Other specified bacterial agents as the cause of diseases classified elsewhere] Onset: 10-05-2024 Episodic Contraceptive and procreative management (3 sources) Oral contraception; Translations: [Encounter for surveillance of contraceptive pills] 03-20-2024 Episodic Gastrointestinal hemorrhage (3 sources) Rectal hemorrhage; Translations: [Hemorrhage of anus and rectum] Onset: 06-06-2024 06-06-2024 Episodic Mood disorders (20 sources) Mood disorders Onset: 10-05-2024 Resolved: 01-31-2025 10-05-2024 Nonmalignant breast conditions (20 sources) Scattered fibroglandular densities; Translations: [Scattered fibroglandular tissue density of both breasts on mammography] Onset: 03-09-2024 03-09-2024 Episodic Other and unspecified benign neoplasm (19 sources) Polyp of sigmoid colon; Translations: [Polyp of colon] Onset: 06-02-2024 06-02-2024 Episodic Other and unspecified benign neoplasm (1 source) Tubular adenoma of colon; Translations: [Benign neoplasm of colon, unspecified] 06-09-2024 Episodic Other gastrointestinal disorders (20 sources) Stool DNA-based colorectal cancer screening positive; Translations: [Other fecal abnormalities] Onset: 05-22-2024 05-22-2024 Episodic Other nutritional; endocrine; and metabolic disorders (1 source) Weight loss Onset: 06-06-2024 Episodic Other upper respiratory infections (11 sources) Acute upper respiratory infection, unspecified; Translations: [Pharyngitis] Onset: 10-09-2021 09-29-2024 Episodic Residual codes; unclassified (1 source) History of colonoscopy; Translations: [Other specified postprocedural states] 06-09-2024 Episodic Screening and history of mental health and substance abuse codes (1 source) Standardized adult depression screening tool completed ; Translations: [Encounter for screening for depression] 06-21-2024 Episodic Unclassified (1 source) CONTACT W/AND (SUSP) EXPOS COVID-19; Translations: [CONTACT W/AND (SUSP) EXPOS COVID-19] Onset: 10-06-2021 Unclassified (20 sources) Onset: 10-05-2024 Resolved: 01-31-2025 10-05-2024 Results Test Name Value Interpretation Reference Range Facil ity POCT Hemoglobin A1con 2024 HbA1c (Bld) [Mass fraction] 5.8 % 4 - 7 % [facility] Hemoglobin A1con 2024 HbA1c (Bld) [Mass fraction] 6 % 4 - 7 % [facility] No Panel Informationon 09-29 INFLUENZA A Negative Negative [facility] INFLUENZA B Negative Negative [facility] Interpretation and review of laboratory results Normal [facility] S. pyogenes DNA MICHELLE+probe No m (Unsp spec)on 09-29-2024 Interpretation and review of laboratory results Normal [facility] RESULT Negative Negative [facility] POCT rapid strep AOrdered By : Candelario Webb on 08-02-2024 Interpretation and review of laboratory results Abnormal [facility] S. pyogenes Ag IA Ql (Unsp spec) Positive Abnormal Negative [facility] COMPREHENSIVE METABOLIC PANE Jose Manuel 06-21-2024 Albumin [Mass/Vol] 4.1 g/dL Normal 3.2-5.3 [facility] Comment on above: Performed By: #### Miroslava RICE, 87337-3, 6-3 #### [facility] ([id number]) [address], [address] [place] [address] ALP [Catalytic activity/Vol] 42 U/L Normal 39-130 [facility] Comment on above: Performed By: #### Miroslava RICE, 92815-9, 6-3 #### [facility] ([id number]) [address], [address] [place] [address] ALT [Catalytic activity/Vol] 14 U/L Normal 0-31 [facility] Comment on above: Performed By: #### Miroslava RICE, 05127-2, 6-3 #### [facility] ([id number]) [address], [address] [place] [address] Anion gap [Moles/Vol] 10 mmol/L Normal 5-15 [facility] Comment on above: Performed By: #### Miroslava RICE, 07649-0, 6-3 #### [facility] ([id number]) [address], [address] [place] [address] AST [Catalytic activity/Vol] 16 U/L Normal 0-41 [facility] Comment on above: Performed By: #### Miroslava RICE, 99754-3, 3015-3 #### [facility] ([id number]) [address], [address] [place] [address] Bilirubin [Mass/Vol] 0.3 mg/dL Normal 0.3-1.2 [facility] Comment on above: Performed By: #### Miroslava RICE, 44618-4, 3015-3 #### [facility] ([id number]) [address], [address] [place] [address] Calcium [Mass/Vol] 9.1 mg/dL Normal 8.5-10.5 [facility] Comment on above: Performed By: #### Miroslava RICE, 47312-8, 3015-3 #### [facility] ([id number]) [address], [address] [place] [address] Chloride [Moles/Vol] 102 mmol/L Normal 98-109 [facility] Comment on above: Performed By: #### Miroslava RICE, 56792-0, 3015-3 #### [facility] ([id number]) [address], [address] [place] [address] CO2 [Moles/Vol] 27 mmol/L Normal 22-32 [facility] Comment on above: Performed By: #### Miroslava RICE, 86833-0, 3015-3 #### [facility] ([id number]) [address], [address] [place] [address] Creatinine [Mass/Vol] 0.64 mg/dL Normal 0.40-1.00 [facility] Comment on above: Result Comment: METH OD TRACEABLE TO IDMS STANDARD Performed By: #### Miroslava RICE, 94666-9, 3015-3 #### [facility] ([id number]) [address], [address] [place] [address] eGFR (CKD-EPI) NON-RACE DEPENDENT >90 Normal >59 [facility] Comment on above: Result Comment: Reported eGFR is based on the CKD-EPI 2020 equation that does not use a race coefficient. Performed By: #### C KRYSTAL, 93713-5, 6-3 #### [facility] ([id number]) [address], [address] [place] [address] Glucose [Mass/Vol] 79 mg/dL Normal 65-99 [facility] Comment on above: Performed By: #### Miroslava RICE, 10483-4, 3015-3 #### [facility] ([id number]) [address], [facility] [address] [place] [address] Potassium [Moles/Vol] 3.2 mmol/L Low 3.5-5.0 [facility] Comment on above: Performed By: #### Miroslava RICE, 97733-8, 3015-3 #### [facility] ([id number]) [address], [address] [place] [address] Protein [Mass/Vol] 6.7 g/dL Normal 6.0-8.0 [facility] Comment on above: Performed By: #### Miroslava RICE, 95717-7, 3015-3 #### [facility] ([id number]) [address], [address] [place] [address] Sodium [Moles/Vol] 139 mmol/L Normal 134-146 [facility] Comment on above: Performed By: #### Miroslava RICE, 29773-5, 6-3 #### [facility] ([id number]) [address], [address] [place] [address] Urea nitrogen [Mass/Vol] 9 mg/dL Normal 5-23 [facility] Comment on above: Performed By: #### Miroslava RICE, 41484-6, 6-3 #### [facility] ([id number]) [address], [address] [place] [address] Lipid 1996 panelon 4 Cholesterol [Mass/Vol] 92 mg/dL Low 150-200 [facility] Comment on above: Performed By: ###[place], [address]-7, 3016-3 #### [facility] ([id number]) [address], [address] [place] [address] Cholesterol in HDL [Mass/Vol] 39 mg/dL Low >39 [facility] Comment on above: Result Comment: HDL <40 mg/dL - High Risk HDL > or = 40mg/dL- Desirable HDL >60 mg/dL - Negative Risk Performed By: ###[place], [address]-7, 3015- #### [facility] ([id number]) [address], [address] [place] [address] Cholesterol in LDL [Mass/Vol] 17 mg/dL Normal <130 [facility] Comment on above: Result Comment: LDL <100 mg/dL - Desirable LDL >160 mg/dL - High Risk Performed By: ###[place], [address]-1, 3015-3 #### [facility] ([id number]) [address], [address] [place] [address] Cholesterol in VLDL [Mass/Vol] 36 mg/dL High 0-30 [facility] Comment on above: Performed By: ###[place], [address]-1, 3016-3 #### [facility] ([id number]) [address], [address] [place] [address] CHOLESTEROL:HDL 2.4 Normal 1.0-5.0 [facility] Comment on above: Performed By: #### C KRYSTAL, 59668-2, 3016-3 #### [facility] ([id number]) [address], [address] [place] [address] Triglyceride [Mass/Vol] 181 mg/dL High 27-150 [facility] Comment on above: Performed By: #### C KRYSTAL, 43142-6, 3016-3 #### [facility] ([id number]) [address], [address] [place] [address] POCT Hemoglobin A1con 2023 HbA1c (Bld) [Mass fraction] 6.0 g/dL 4 - 7 g/dL [facility] TSH Qnon 06-21-2024 TSH 1.63 uIU/mL Normal 0.49-4.67 [facility] Comment on above: Performed By: #### C KRYSTAL, 25789-3, 3016-3 #### [facility] ([id number]) [address], [address] [place] [address] BASIC METABOLIC PANLon 06-06 Anion gap [Moles/Vol] 8 mmol/L Normal 5-15 [facility] Comment on above: Performed By: #### P INR, 54550-8, BMP, CBCA #### [facility] ([id number]) [address] [place] [address] Calcium [Mass/Vol] 8.7 mg/dL Normal 8.5-10.5 [facility] Comment on above: Performed By: #### P INR, 04694-3, BMP, CBCA #### [facility] ([id number]) [address] [place] [address] Chloride [Moles/Vol] 101 mmol/L Normal 98-109 [facility] Comment on above: Performed By: #### P INR, 34855-4, BMP, CBCA #### [facility] ([id number]) [address] [place] [address] CO2 [Moles/Vol] 28 mmol/L Normal 22-32 [facility] Comment on above: Performed By: #### P INR, 03181-1, BMP, CBCA #### [facility] ([id number]) [address] [place] [address] Creatinine [Mass/Vol] 0.60 mg/dL Normal 0.40-1.00 [facility] Comment on above: Result Comment: METH OD TRACEABLE TO IDMS STANDARD Performed By: #### P INR, 71270-2, BMP, CBCA #### [facility] ([id number]) [address] [place] [address] 68536 eGFR (CKD-EPI) NON-RACE DEPENDENT >90 Normal >59 [facility] Comment on above: Result Comment: Reported eGFR is based on the CKD-EPI 2020 equation that does not use a race coefficient. Performed By: #### P INR, 78742-1, BMP, CBCA #### [facility] ([id number]) [address] [place] [address] 34174 Glucose [Mass/Vol] 147 mg/dL High 65-99 [facility] Comment on above: Performed By: #### P INR, 34936-6, BMP, CBCA #### [facility] ([id number]) [address] [place] [address] 33099 Potassium [Moles/Vol] 3.1 mmol/L Low 3.5-5.0 [facility] Comment on above: Performed By: #### P INR, 34998-0, BMP, CBCA #### [facility] ([id number]) [address] [place] [address] 08312 Sodium [Moles/Vol] 137 mmol/L Normal 134-146 [facility] Comment on above: Performed By: #### P INR, 00312-3, BMP, CBCA #### [facility] ([id number]) [address] [place] [address] 86026 Urea nitrogen [Mass/Vol] 8 mg/dL Normal 5-23 [facility] Comment on above: Performed By: #### P INR, 91715-8, BMP, CBCA #### [facility] ([id number]) [address] [place] [address] 09758 CBC AND AUTO DIFFon 20-20 24 ABSOLUTE BASOPHIL 0.1 X10E9/L Normal 0.0-0.2 [facility] Comment on above: Performed By: #### P INR, 19008-2, BMP, CBCA #### [facility] ([id number]) [address] [place] [address] 84674 ABSOLUTE NEUTROPHIL 5.3 X10E9/L Normal 1.5-6.6 [facility] Comment on above: Performed By: #### P INR, 80417-0, BMP, CBCA #### [facility] ([id number]) [address] [place] [address] 85386 Basophils/100 WBC (Bld) 1.2 % Normal [facility] Comment on above: Performed By: #### P INR, 37927-3, BMP, CBCA #### [facility] ([id number]) [address] [place] [address] 08153 Eosinophils (Bld) [#/Vol] 0.1 10*3/uL Normal 0.0-0.4 [facility] Comment on above: Performed By: #### P INR, 20010-8, BMP, CBCA #### [facility] ([id number]) [address] [place] [address] 85505 Eosinophils/100 WBC (Bld) 1.5 % Normal [facility] Comment on above: Performed By: #### P INR, 93373-5, BMP, CBCA #### [facility] ([id number]) [address] [place] [address] 93956 Erythrocyte distribution width (RBC) [Ratio] 14.2 % Normal 11.5-15.0 [facility] Comment on above: Performed By: #### P INR, 67955-3, BMP, CBCA #### [facility] ([id number]) [address] [place] [address] 77913 Hematocrit (Bld) [Volume fraction] 41.7 % Normal 35-47 [facility] Comment on above: Performed By: #### P INR, 87154-8, BMP, CBCA #### [facility] ([id number]) [address] [place] [address] 59772 Hemoglobin (Bld) [Mass/Vol] 13.9 g/dL Normal 11.7-15.5 [facility] Comment on above: Performed By: #### P INR, 59424-7, BMP, CBCA #### [facility] ([id number]) [address] [place] [address] 42193 Lymphocytes (Bld) [#/Vol] 1.1 10*3/uL Normal 1.0-3.5 [facility] Comment on above: Performed By: #### P INR, 07791-7, BMP, CBCA #### [facility] ([id number]) [address] [place] [address] 74640 Lymphocytes/100 WBC (Bld) 15.2 % Normal [facility] Comment on above: Performed By: #### P INR, 72626-9, BMP, CBCA #### [facility] ([id number]) [address] [place] [address] 27613 MCH (RBC) [Entitic mass] 28.2 pg Normal 27-34 [facility] Comment on above: Performed By: #### P INR, 00872-4, BMP, CBCA #### [facility] ([id number]) [address] [place] [address] 20821 MCHC (RBC) [Mass/Vol] 33.2 g/dL Normal 32-36 [facility] Comment on above: Performed By: #### P INR, 22880-6, BMP, CBCA #### [facility] ([id number]) [address] [place] [address] 79642 MCV (RBC) [Entitic vol] 85 fL Normal 80-100 [facility] Comment on above: Performed By: #### P INR, 29638-1, BMP, CBCA #### [facility] ([id number]) [address] [place] [address] 21566 Monocytes (Bld) [#/Vol] 0.5 10*3/uL Normal 0-0.9 [facility] Comment on above: Performed By: #### P INR, 99909-1, BMP, CBCA #### [facility] ([id number]) [address] [place] [address] 85686 Monocytes/100 WBC (Bld) 6.6 % Normal [facility] Comment on above: Performed By: #### P INR, 53532-5, BMP, CBCA #### [facility] ([id number]) [address] [place] [address] 55135 Neutrophils/100 WBC (Bld) 75.5 % Normal [facility] Comment on above: Performed By: #### P INR, 64549-1, BMP, CBCA #### [facility] ([id number]) [address] [place] [address] 05892 Platelet mean volume (Bld) [Entitic vol] 9.3 fL Normal 7-12 [facility] Comment on above: Performed By: #### P INR, 81023-5, BMP, CBCA #### [facility] ([id number]) [address] [place] [address], [place] [address] Platelets (Bld) [#/Vol] 283 10*3/uL Normal 150-450 [facility] Comment on above: Performed By: #### P INR, 32571-5, BMP, CBCA #### [facility] ([id number]) [address] [place] [address] 68962 RBC COUNT 4.91 X10E12/L Normal 3.80-5.20 [facility] Comment on above: Performed By: #### P INR, 55786-4, BMP, CBCA #### [facility] ([id number]) [address] [place] [address] 55813 WBC (Bld) [#/Vol] 7.0 10*3/uL Normal 4.0-11.0 [facility] Comment on above: Performed By: #### P INR, 45897-7, BMP, CBCA #### [facility] ([id number]) [address] [place] [address] 07759 PROTIME AND INRon 06-06-2024 INR Coag (PPP) [Relative time] 1.0 {INR} Normal 0.8-1.1 [facility] Comment on above: Performed By: #### P INR, 96265-2, BMP, CBCA #### [facility] ([id number]) [address] [place] [address] 59633 PT Coag (PPP) [Time] 11.1 s Normal 9.8-13.2 [facility] Comment on above: Result Comment: NEW REFERENCE RANGE Performed By: #### P INR, 84568-2, BMP, CBCA #### [facility] ([id number]) [address] [place] [address] 11440 aPTT Coag (PPP) [Time]on aPTT Coag (Bld) [Time] 34 s Normal 26-37 [facility] Comment on above: Result Comment: NEW REFERENCE RANGE Performed By: #### P INR, 73322-1, BMP, CBCA #### [facility] ([id number]) [address] [place] [address], [place] [address] Glucose Glucometer (BldC) [M ass/Vol]on 06-02-2024 Glucose [Mass/Vol] 97 mg/dL Normal 65-99 [facility] Surgical Pathologyon 024 Surgical Pathology Normal [facility] Comment on above: Result Comment: [facility] [address] [place] [address] Surgical Pathology Consultation Patient Name:JIM HUERTA:1975 (Age: 48)Gender:FTaken:4Reported:06/06/2024hysician(s):Maci Bach MD ([phone])Copy To: Rec. #:[id number]: #[id number] Final Pathologic Diagnosis 1. Colon at 35 cm, polypectomy: Fragments of tubular adenoma. 2. Colon at 40 cm, polypectomy: Tubular adenoma. 3. Colon at 20 cm, polypectomy: Tubular adenoma, 1 cm. Lesional cells present at the peripheral stalk tissue edge. 4. Colon at 15 cm, polypectomy: Hyperplastic polyp. Report Electronically Signed Out /06/06/2024paty Cisneros MD Interpretation performed at [facility], [address] [place] [address], License number: [id number]. Clinical History Positive cologuard. 1. Snared a [...] submitted in a single cassette. (1, ns, [id number],m8) DM. 2. .Received in formalin labeled BRADLEY, polyp at 40 cm are four light bush soft tissue bits, 0.1-0.3 cm. The specimen is filtered and entirely submitted in a single cassette. (1, ns, [id number],m8) DM. 3. Received in formalin labeled BRADLEY, polyp at 20 cm is a bush pedunculated polyp, 1.0 x 0.8 x 0.5 cm. The resection margin is inked black. The polyp is serially sectioned and entirely submitted in a single cassette. (1, ns, [id number],m8) DM. 4. Received in formalin labeled BRADLEY, polyp at 15 cm is a light bush soft tissue bit, 0.3 cm. The specimen is filtered and entirely submitted in a single cassette. (1, ns, [id number],m8) DM. dm/06/05/2024GP Specimen(s) Received 1: Colon polyp at 35cm 2: Colon polyp at 40cm 3: Colon polyp at 20cm 4: Colon polyp at 15cm Fee Codes(s): 1; 94520 2; 76896 3; 95512 4; 89699 POCT Hemoglobin [id number] B y: Colleen Zoraida on 03-16-2024 HbA1c (Bld) [Mass fraction] 5.8 g/dL 4 - 7 g/dL [facility] POCT Hemoglobin A1con 2023 HbA1c (Bld) [Mass fraction] 7.3 g/dL Abnormal 4 - 7 g/dL [facility] Interpretation and review of laboratory results Abnormal [facility] MG MAMM SCREEN 3D SHELL CADon 09-03-2022 MG MAMM SCREEN 3D SHELL CAD Patient: JIM HUERTA Exam Date: 09/03/2022 : 1975 Gender:F Ordering : BHAVIN LOPEZ Admission #: [id number] Family : QI MORGAN Order #: [id number] CLICK HERE TO VIEW EXAM RADIOLOGY REPORT [...] Treatments None Family Cancers None LOCATION: [facility] BREAST COMPOSITION: Scattered areas fibroglandular density. FINDINGS: [...] MD on 09/04/2022 at 10:32 Normal [facility] Covid-19 PCR (CVDTB)on 09-18 SARS-CoV-2 (COVID-19) RNA MICHELLE+probe Ql (Unsp spec) Not detected Normal NOT DETECTED [facility] Comment on above: Result Comment: This test is not yet approved or cleared by the [place] FDA. When there are no FDA-approved or cleared tests available, and other criteria are met, FDA can make tests available under an emergency access mechanism called an Emergency Use Authorization (EUA). The EUA for this test is supported by the [employer] Worker of Health and Human Service's (HHS's) declaration [...] consistent with SARS-CoV-2. Performed By: #### C VDTB #### [facility] [address] [address] [address] Jimmy Estrada Vital Signs Date Time Vital Sign Value Performing Clinician Facility 01-31-2025 08:42-0400 Body height 165.1 cm Bhavin Lopez HEALTH CARE CONSULTANT-BRONWYN Work Phone: [facility] 01-31-2025 08:42-0400 Body mass index (BMI) [Ratio] 33.68 kg/m2 Bhavin Lopez APRN-FOOTBALL PAD REPAIRER Work Phone: [facility] 01-31-2025 08:42-0400 Body temperature 98.2 [degF] Bhavin Lopez APRN-BRONWYN Work Phone: [facility] 01-31-2025 08:42-0400 Body weight 91.81 kg Bhavin Lopez APRN-BRONWYN Work Phone: [facility] 01-31-2025 08:42-0400 Diastolic blood pressure 80 mm[Hg] Bhavin Lopez APRN-BRONWYN Work Phone: [facility] 01-31-2025 08:42-0400 Heart rate 65 /min Bhavin Lopez APRN-BRONWYN Work Phone: [facility] 01-31-2025 08:42-0400 Respiratory rate 16 /min Bhavin Lopez APRN-BRONWYN Work Phone: [facility] 01-31-2025 08:42-0400 SaO2% (BldA) [Mass fraction] 97 % Bhavin Lopez APRN-BRONWYN Work Phone: [facility] 01-31-2025 08:42-0400 Systolic blood pressure 130 mm[Hg] Bhavin Lopez APRN-BRONWYN Work Phone: [facility] 11-27-2024 07:56-0500 Body height 165.1 cm Bhavin Lopez APRN-BRONWYN Work Phone: [facility] 11-27-2024 07:56-0500 Body mass index (BMI) [Ratio] 31.62 kg/m2 Bhavin Lopez APRN-FOOTBALL PAD REPAIRER Work Phone: [facility] 11-27-2024 07:56-0500 Body temperature 98.2 [degF] Bhavin Lopez APRN-FOOTBALL PAD REPAIRER Work Phone: [facility] 11-27-2024 07:56-0500 Body weight 86.18 kg Bhavin Lopez APRN-FOOTBALL PAD REPAIRER Work Phone: [facility] 11-27-2024 07:56-0500 Diastolic blood pressure 82 mm[Hg] Bhavin Lopez APRN-FOOTBALL PAD REPAIRER Work Phone: [facility] 11-27-2024 07:56-0500 Heart rate 77 /min Bhavin Lopez APRN-FOOTBALL PAD REPAIRER Work Phone: [facility] 11-27-2024 07:56-0500 Respiratory rate 18 /min Bhavin Lopez APRN-FOOTBALL PAD REPAIRER Work Phone: [facility] 11-27-2024 07:56-0500 SaO2% (BldA) [Mass fraction] 98 % Bhavin Lopez APRN-FOOTBALL PAD REPAIRER Work Phone: [facility] 11-27-2024 07:56-0500 Systolic blood pressure 122 mm[Hg] Bhavin Lopez APRN-FOOTBALL PAD REPAIRER Work Phone: [facility] 11-02-2024 16:06-0500 Body height 165.1 cm Bhavin Lopez APRN-FOOTBALL PAD REPAIRER Work Phone: [facility] 11-02-2024 16:06-0500 Body mass index (BMI) [Ratio] 32.28 kg/m2 Bhavin Lopez APRN-FOOTBALL PAD REPAIRER Work Phone: [facility] 11-02-2024 16:06-0500 Body temperature 97.59 [degF] Bhavin Lopez APRN-FOOTBALL PAD REPAIRER Work Phone: [facility] 11-02-2024 16:06-0500 Body weight 88 kg Bhavin Lopez APRN-FOOTBALL PAD REPAIRER Work Phone: [facility] 11-02-2024 16:06-0500 Diastolic blood pressure 70 mm[Hg] Bhavin Lopez HEALTH CARE CONSULTANT-FOOTBALL PAD REPAIRER Work Phone: [facility] 11-02-2024 16:06-0500 Heart rate 80 /min Bhavin Lopez APRN-FOOTBALL PAD REPAIRER Work Phone: [facility] 11-02-2024 16:06-0500 Respiratory rate 18 /min Bhavin Lopez HEALTH CARE CONSULTANT-FOOTBALL PAD REPAIRER Work Phone: [facility] 11-02-2024 16:06-0500 SaO2% (BldA) [Mass fraction] 99 % Bhavin Lopez APRN-FOOTBALL PAD REPAIRER Work Phone: [facility] 11-02-2024 16:06-0500 Systolic blood pressure 122 mm[Hg] Bhavin Lopez HEALTH CARE CONSULTANT-FOOTBALL PAD REPAIRER Work Phone: [facility] 10-05-2024 14:51-0500 Body height 165.1 cm Bhavin Lopez APRN-FOOTBALL PAD REPAIRER Work Phone: [facility] 10-05-2024 14:51-0500 Body mass index (BMI) [Ratio] 32.62 kg/m2 Bhavin Lopez APRN-FOOTBALL PAD REPAIRER Work Phone: [facility] 10-05-2024 14:51-0500 Body temperature 97.5 [degF] Bhavin Lopez APRN-FOOTBALL PAD REPAIRER Work Phone: [facility] 10-05-2024 14:51-0500 Body weight 88.91 kg Bhavin Lopez HEALTH CARE CONSULTANT-FOOTBALL PAD REPAIRER Work Phone: [facility] 10-05-2024 14:51-0500 Diastolic blood pressure 80 mm[Hg] Bhavin Lopez HEALTH CARE CONSULTANT-FOOTBALL PAD REPAIRER Work Phone: [facility] 10-05-2024 14:51-0500 Heart rate 80 /min Bhavin Lopez HEALTH CARE CONSULTANT-FOOTBALL PAD REPAIRER Work Phone: [facility] 10-05-2024 14:51-0500 Respiratory rate 18 /min Bhavin Loepz APRN-FOOTBALL PAD REPAIRER Work Phone: [facility] 10-05-2024 14:51-0500 SaO2% (BldA) [Mass fraction] 99 % Bhavin Lopez APRN-FOOTBALL PAD REPAIRER Work Phone: [facility] 10-05-2024 14:51-0500 Systolic blood pressure 138 mm[Hg] Bhavin Lopez APRN-FOOTBALL PAD REPAIRER Work Phone: [facility] 09-29-2024 18:10-0500 Body temperature 98.1 [degF] Angelito Ana Laura Work Phone: [facility] 09-29-2024 18:10-0500 Body weight 92.44 kg Angleito Ana Laura Work Phone: [facility] 09-29-2024 18:10-0500 Diastolic blood pressure 100 mm[Hg] Angelito Lang Work Phone: [facility] 09-29-2024 18:10-0500 Heart rate 87 /min Angelito Ana Laura Work Phone: [facility] 09-29-2024 18:10-0500 SaO2% (BldA) [Mass fraction] 99 % Angelito Lang DO Work Phone: [facility] 09-29-2024 18:10-0500 Systolic blood pressure 140 mm[Hg] Angelito Lang Work Phone: [facility] 09-04-2024 15:31-0500 Body height 165.1 cm Bhavin Lopez APRN-FOOTBALL PAD REPAIRER Work Phone: [facility] 09-04-2024 15:31-0500 Body mass index (BMI) [Ratio] 32.68 kg/m2 Bhavin Lopez APRN-FOOTBALL PAD REPAIRER Work Phone: [facility] 09-04-2024 15:31-0500 Body temperature 97.81 [degF] Bhavin Lopez HEALTH CARE CONSULTANT-FOOTBALL PAD REPAIRER Work Phone: [facility] 09-04-2024 15:31-0500 Body weight 89.09 kg Bhavin Lopez APRN-FOOTBALL PAD REPAIRER Work Phone: [facility] 09-04-2024 15:31-0500 Diastolic blood pressure 80 mm[Hg] Bhavin Lopez APRN-FOOTBALL PAD REPAIRER Work Phone: [facility] 09-04-2024 15:31-0500 Heart rate 92 /min Bhavin Lopez APRN-FOOTBALL PAD REPAIRER Work Phone: [facility] 09-04-2024 15:31-0500 Respiratory rate 18 /min Bhavin Lopez APRN-FOOTBALL PAD REPAIRER Work Phone: [facility] 09-04-2024 15:31-0500 SaO2% (BldA) [Mass fraction] 99 % Bhavin Lopez APRN-FOOTBALL PAD REPAIRER Work Phone: [facility] 09-04-2024 15:31-0500 Systolic blood pressure 120 mm[Hg] Bhavin Lopez APRN-FOOTBALL PAD REPAIRER Work Phone: [facility] 08-02-2024 13:46-0400 Body height 165.1 cm Bhavin Lopez APRN-FOOTBALL PAD REPAIRER Work Phone: [facility] 08-02-2024 13:46-0400 Body mass index (BMI) [Ratio] 33.18 kg/m2 Bhavin Lopez APRN-FOOTBALL PAD REPAIRER Work Phone: [facility] 08-02-2024 13:46-0400 Body temperature 98.1 [degF] Bhavin Lopez APRN-FOOTBALL PAD REPAIRER Work Phone: [facility] 08-02-2024 13:46-0400 Body weight 90.45 kg Bhavin Lopez APRN-FOOTBALL PAD REPAIRER Work Phone: [facility] 08-02-2024 13:46-0400 Diastolic blood pressure 80 mm[Hg] Bhavin Lopez APRN-FOOTBALL PAD REPAIRER Work Phone: [facility] 08-02-2024 13:46-0400 Heart rate 74 /min Bhavin Lopez APRN-FOOTBALL PAD REPAIRER Work Phone: [facility] 08-02-2024 13:46-0400 Respiratory rate 18 /min Bhavin Lopez APRN-FOOTBALL PAD REPAIRER Work Phone: [facility] 08-02-2024 13:46-0400 SaO2% (BldA) [Mass fraction] 99 % Bhavin Lopez APRN-FOOTBALL PAD REPAIRER Work Phone: [facility] 08-02-2024 13:46-0400 Systolic blood pressure 140 mm[Hg] Bhavin Lopez APRN-FOOTBALL PAD REPAIRER Work Phone: [facility] 07-05-2024 15:25-0400 Body height 165.1 cm Bhavin Lopez APRN-BRONWYN Work Phone: [facility] 07-05-2024 15:25-0400 Body mass index (BMI) [Ratio] 34.51 kg/m2 Bhavin Lopez APRN-BRONWYN Work Phone: [facility] 07-05-2024 15:25-0400 Body temperature 98.4 [degF] Bhavin Lopez APRN-BRONWYN Work Phone: [facility] 07-05-2024 15:25-0400 Body weight 94.08 kg Bhavin Lopez APRN-FOOTBALL PAD REPAIRER Work Phone: [facility] 07-05-2024 15:25-0400 Diastolic blood pressure 84 mm[Hg] Bhavin Lopez APRN-FOOTBALL PAD REPAIRER Work Phone: [facility] 07-05-2024 15:25-0400 Heart rate 65 /min Bhavin Lopez APRN-FOOTBALL PAD REPAIRER Work Phone: [facility] 07-05-2024 15:25-0400 Respiratory rate 18 /min Bhavin Lopez APRN-FOOTBALL PAD REPAIRER Work Phone: [facility] 07-05-2024 15:25-0400 SaO2% (BldA) [Mass fraction] 99 % Bhavin Lopez APRN-FOOTBALL PAD REPAIRER Work Phone: [facility] 07-05-2024 15:25-0400 Systolic blood pressure 136 mm[Hg] Bhavin Lopez APRN-FOOTBALL PAD REPAIRER Work Phone: [facility] 06-21-2024 16:31-0400 Body height 165.1 cm Bhavin Lopez APRN-FOOTBALL PAD REPAIRER Work Phone: [facility] 06-21-2024 16:31-0400 Body mass index (BMI) [Ratio] 34.81 kg/m2 Bhvain Lopez APRN-FOOTBALL PAD REPAIRER Work Phone: [facility] 06-21-2024 16:31-0400 Body temperature 98.2 [degF] Bhavin Lopez APRN-FOOTBALL PAD REPAIRER Work Phone: [facility] 06-21-2024 16:31-0400 Body weight 94.89 kg Bhavin Lopez APRN-FOOTBALL PAD REPAIRER Work Phone: [facility] 06-21-2024 16:31-0400 Diastolic blood pressure 80 mm[Hg] Bhavin Lopez APRN-FOOTBALL PAD REPAIRER Work Phone: [facility] 06-21-2024 16:31-0400 Heart rate 68 /min Bhavin Lopez APRN-FOOTBALL PAD REPAIRER Work Phone: [facility] 06-21-2024 16:31-0400 Respiratory rate 18 /min Bhavin Lopez APRN-FOOTBALL PAD REPAIRER Work Phone: [facility] 06-21-2024 16:31-0400 SaO2% (BldA) [Mass fraction] 98 % Bhavin Lopez APRN-FOOTBALL PAD REPAIRER Work Phone: [facility] 06-21-2024 16:31-0400 Systolic blood pressure 130 mm[Hg] Bhavin Lopez APRN-FOOTBALL PAD REPAIRER Work Phone: [facility] 06-20-2024 15:38-0400 Body height 165.1 cm [facility] 06-20-2024 15:38-0400 Body mass index (BMI) [Ratio] 34.61 kg/m2 [facility] 06-20-2024 15:38-0400 Body weight 94.35 kg [facility] 06-20-2024 15:38-0400 Diastolic blood pressure 92 mm[Hg] [facility] 06-20-2024 15:38-0400 Systolic blood pressure 142 mm[Hg] [facility] 06-09-2024 11:15-0400 Body height 165.1 cm Maci Devs DO Work Phone: [facility] 06-09-2024 11:15-0400 Body mass index (BMI) [Ratio] 34.78 kg/m2 Maci Yuhas DO Work Phone: [facility] 06-09-2024 11:15-0400 Body temperature 98.4 [degF] Maci Yuhas DO Work Phone: [facility] 06-09-2024 11:15-0400 Body weight 94.8 kg Maci Yuhas DO Work Phone: [facility] 06-09-2024 11:15-0400 Diastolic blood pressure 80 mm[Hg] Maci Yuhas DO Work Phone: [facility] 06-09-2024 11:15-0400 Heart rate 55 /min Maci Yuhas DO Work Phone: [facility] 06-09-2024 11:15-0400 Respiratory rate 18 /min Maci Yuhas DO Work Phone: [facility] 06-09-2024 11:15-0400 SaO2% (BldA) [Mass fraction] 97 % Maci Bach DO Work Phone: [facility] 06-09-2024 11:15-0400 Systolic blood pressure 118 mm[Hg] Maci Bach DO Work Phone: [facility] 06-06-2024 13:44-0400 Body height 165.1 cm Bhavin Lopez APRN-BRONWYN Work Phone: [facility] 06-06-2024 13:44-0400 Body mass index (BMI) [Ratio] 35.64 kg/m2 Bhavin Lopez HEALTH CARE CONSULTANT-BRONWYN Work Phone: [facility] 06-06-2024 13:44-0400 Body temperature 97.7 [degF] Bhavin Lopez APRN-FOOTBALL PAD REPAIRER Work Phone: [facility] 06-06-2024 13:44-0400 Body weight 97.16 kg Bhavin Lopez APRN-BRONWNY Work Phone: [facility] 06-06-2024 13:44-0400 Diastolic blood pressure 80 mm[Hg] Bhavin Lopez APRN-BRONWYN Work Phone: [facility] 06-06-2024 13:44-0400 Heart rate 67 /min Bhavin Lopez APRN-BRONWYN Work Phone: [facility] 06-06-2024 13:44-0400 Respiratory rate 18 /min Bhavin Lopez APRN-FOOTBALL PAD REPAIRER Work Phone: [facility] 06-06-2024 13:44-0400 SaO2% (BldA) [Mass fraction] 97 % Bhavin Lopez APRN-FOOTBALL PAD REPAIRER Work Phone: [facility] 06-06-2024 13:44-0400 Systolic blood pressure 128 mm[Hg] Bhavin Lopez HEALTH CARE CONSULTANT-FOOTBALL PAD REPAIRER Work Phone: [facility] 06-01-2024 09:45-0400 Body height 165.1 cm [facility] 06-01-2024 09:45-0400 Body mass index (BMI) [Ratio] 33.28 kg/m2 [facility] 1 [facility] 06-01-2024 09:45-0400 Body weight 90.72 kg Pmh 1 [facility] 03-16-2024 16:13-0400 Body height 165.1 cm Bhavin Lopez APRN-FOOTBALL PAD REPAIRER Work Phone: [facility] 03-16-2024 16:13-0400 Body mass index (BMI) [Ratio] 35.71 kg/m2 Bhavin Lopez HEALTH CARE CONSULTANT-FOOTBALL PAD REPAIRER Work Phone: [facility] 03-16-2024 16:13-0400 Body temperature 98.01 [degF] Bhavin Lopez APRN-FOOTBALL PAD REPAIRER Work Phone: [facility] 03-16-2024 16:13-0400 Body weight 97.34 kg Bhavin Lopez HEALTH CARE CONSULTANT-FOOTBALL PAD REPAIRER Work Phone: [facility] 03-16-2024 16:13-0400 Diastolic blood pressure 60 mm[Hg] Bhavin Lopez HEALTH CARE CONSULTANT-FOOTBALL PAD REPAIRER Work Phone: [facility] 03-16-2024 16:13-0400 Heart rate 59 /min Bhavin Lopez APRN-FOOTBALL PAD REPAIRER Work Phone: [facility] 03-16-2024 16:13-0400 Respiratory rate 20 /min Bhavin Lopez HEALTH CARE CONSULTANT-FOOTBALL PAD REPAIRER Work Phone: [facility] 03-16-2024 16:13-0400 SaO2% (BldA) [Mass fraction] 96 % Bhavin Lopez HEALTH CARE CONSULTANT-FOOTBALL PAD REPAIRER Work Phone: [facility] 03-16-2024 16:13-0400 Systolic blood pressure 120 mm[Hg] Bhavin Lopez HEALTH CARE CONSULTANT-FOOTBALL PAD REPAIRER Work Phone: [facility] 12-14-2023 15:35-0500 Body height 165.1 cm Bhavin Lopez APRN-FOOTBALL PAD REPAIRER Work Phone: [employer] 12-14-2023 15:35-0500 Body mass index (BMI) [Ratio] 35.98 kg/m2 Bhavin Lopez HEALTH CARE CONSULTANT-FOOTBALL PAD REPAIRER Work Phone: [employer] 12-14-2023 15:35-0500 Body temperature 98.6 [degF] Bhavin Lopez APRN-FOOTBALL PAD REPAIRER Work Phone: [employer] 12-14-2023 15:35-0500 Body weight 98.07 kg Bhavin Lopez APRN-FOOTBALL PAD REPAIRER Work Phone: [employer] 12-14-2023 15:35-0500 Diastolic blood pressure 86 mm[Hg] Bhavin Lopez HEALTH CARE CONSULTANT-FOOTBALL PAD REPAIRER Work Phone: [employer] 12-14-2023 15:35-0500 Heart rate 70 /min Bhavin Lopez APRN-FOOTBALL PAD REPAIRER Work Phone: [employer] 12-14-2023 15:35-0500 Respiratory rate 20 /min Bhavin Lopez HEALTH CARE CONSULTANT-FOOTBALL PAD REPAIRER Work Phone: [employer] 12-14-2023 15:35-0500 SaO2% (BldA) [Mass fraction] 95 % Bhavin Lopez APRN-FOOTBALL PAD REPAIRER Work Phone: [employer] 12-14-2023 15:35-0500 Systolic blood pressure 130 mm[Hg] Bhavin Lopez HEALTH CARE CONSULTANT-FOOTBALL PAD REPAIRER Work Phone: [employer] Encounters Encounter Date Encounter Type Care Provider Facility Start: 07-11-2025 ambulatory MARIN RIZVI Facility :[facility] Start: 05-28-2025 End: 05-28-2025 [facility] Comment on above: Mixed hyperlipidemia Start: 05-26-2025 End: 05-29-2025 Refill Bhavin Cerda John HEALTH CARE CONSULTANT-FOOTBALL PAD REPAIRER Work Phone: [facility] Internal Medicine - [facility] Medicine Comment on above: Essential hypertensi on; Type 2 diabetes mellitus without complication, without long-term current use of insulin ([facility]) Start: 01-31-2025 End: 01-31-2025 [facility] Work Phone: [facility] - [facility] Comment on above: Type 2 diabetes yvonne itus without complication, without long- term current use of insulin ([facility]) (Primary Dx); Mixed hyperlipidemia; Benign essential HTN Start: 01-31-2025 End: 01-31-2025 ambulatory [facility] Start: 12-13-2024 End: 12-13-2024 ambulatory CHARLETTE SAMPSON Not Available Start: 12-13-2024 End: 12-13-2024 Office outpatient visit 25 minutes Charlette Sampson MD Work Phone: [facility] Comment on above: Preseptal cellulitis (Primary Dx) Start: 12-13-2024 End: 12-13-2024 Bamboo flowsheet Charlette Sampson MD Work Phone: [facility] Start: 12-13-2024 End: 12-13-2024 Bamboo flowsheet Charlette Sampson MD Work Phone: [facility] Start: 12-11-2024 End: 12-11-2024 Bamboo flowsheet Charlette Sampson MD Work Phone: [facility] Start: 12-11-2024 End: 12-11-2024 Bamboo flowsheet Charlette Sampson MD Work Phone: [facility] Start: 12-11-2024 End: 12-11-2024 Office outpatient new 60 minutes Charlette Sampson MD Work Phone: [facility] Comment on above: Chalazion of right u pper eyelid (Primary Dx); Preseptal cellulitis Start: 12-11-2024 End: 12-11-2024 ambulatory CHARLETTE SAMPSON Not Available Start: 12-09-2024 End: 12-11-2024 Refill Bhavin Marksillo HEALTH CARE CONSULTANT-FOOTBALL PAD REPAIRER Work Phone: [facility] - [facility] Comment on above: Type 2 diabetes yvonne itus without complication, without long- term current use of insulin ([facility]); Essential hypertension Start: 11-27-2024 End: 11-27-2024 Office outpatient visit 15 minutes Bhavin Lopez HEALTH CARE CONSULTANT-FOOTBALL PAD REPAIRER Work Phone: [facility] Internal Medicine - Family Medicine Comment on above: Class 1 obesity due to excess calories without serious comorbidity with body mass index (BMI) of 31.0 to 31.9 in adult Start: 11-27-2024 End: 11-27-2024 ambulatory [facility] Start: 11-02-2024 End: 11-02-2024 Office outpatient visit 25 minutes Bhavin Lopez HEALTH CARE CONSULTANT-FOOTBALL PAD REPAIRER Work Phone: [facility] Internal [facility] - [facility] Comment on above: Type 2 diabetes yvonne itus without complication, without long- term current use of insulin ([facility]) (Primary Dx); Essential hypertension; Class 1 obesity due to excess calories with serious comorbidity and body mass index (BMI) of 33.0 to 33.9 in adult; Mixed hyperlipidemia Start: 11-02-2024 End: 11-02-2024 ambulatory [facility] Start: 10-05-2024 End: 10-05-2024 Office outpatient visit 15 minutes Bhavin Cerda Lopez HEALTH CARE CONSULTANT-[facility] Work Phone: [facility] - [facility] Comment on above: Acute bacterial sinu sitis (Primary Dx); Class 1 obesity due to excess calories with serious comorbidity and body mass index (BMI) of 33.0 to 33.9 in adult Start: 10-05-2024 End: 10-05-2024 ambulatory [facility] Start: 09-29-2024 End: 09-29-2024 Office outpatient visit 25 minutes Angelito Lang DO Work Phone: [facility] Comment on above: Acute non-recurrent maxillary sinusitis (Primary Dx); Pharyngitis, unspecified etiology; Acute bronchitis, unspecified organism; Viral diarrhea Start: 09-29-2024 End: 09-29-2024 ambulatory ANGELITO LANG Not Available Start: 09-04-2024 End: 09-04-2024 Office outpatient visit 15 minutes [facility] HEALTH CARE CONSULTANT-FOOTBALL PAD REPAIRER Work Phone: [facility] Internal [facility] - [facility] Comment on above: Class 1 obesity due to excess calories with serious comorbidity and body mass index (BMI) of 33.0 to 33.9 in adult Start: 09-04-2024 End: 09-04-2024 ambulatory [facility] Start: 08-02-2024 End: 08-02-2024 Office outpatient visit 25 minutes [facility] HEALTH CARE CONSULTANT-FOOTBALL PAD REPAIRER Work Phone: [facility] - [facility] Comment on above: Strep throat (Primar y Dx); Class 1 obesity due to excess calories with serious comorbidity and body mass index (BMI) of 33.0 to 33.9 in adult; Sore throat Start: 08-02-2024 End: 08-02-2024 [facility] Start: 07-05-2024 End: 07-05-2024 [facility] Start: 07-05-2024 End: 07-05-2024 Office outpatient visit 15 minutes [facility] HEALTH CARE CONSULTANT-FOOTBALL PAD REPAIRER Work Phone: [facility] - [facility] Comment on above: Poison zack (Primary Dx); Class 2 obesity due to excess calories with body mass index (BMI) of 35.0 to 35.9 in adult, unspecified whether serious comorbidity present Start: 06-26-2024 End: 06-26-2024 Dheeraj Chaves [facility] - Family Medicine Comment on above: Mixed hyperlipidemia Start: 06-21-2024 End: 06-21-2024 ambulatory [facility] Start: 06-21-2024 Encounter for genera l adult medical examination without abnormal findings [facility] Start: 06-21-2024 End: 06-21-2024 ambulatory [facility] Start: 06-21-2024 Encounter for genera l adult medical examination without abnormal findings [facility] Start: 06-21-2024 End: 06-21-2024 Patient encounter procedure [facility] HEALTH CARE CONSULTANT-FOOTBALL PAD REPAIRER Work Phone: [facility] Work Phone: Start: 06-21-2024 End: 06-21-2024 Periodic preventive med est patient 40-64yrs [facility]in [facility] HEALTH CARE CONSULTANT-FOOTBALL PAD REPAIRER Work Phone: [facility] - [facility] Comment on above: Annual physical exam (Primary Dx); Blood tests for routine general physical examination Start: 06-21-2024 End: 06-21-2024 Physical examination [facility] HEALTH CARE CONSULTANT-FOOTBALL PAD REPAIRER Work Phone: [facility] Start: 06-20-2024 End: 06-20-2024 ambulatory [facility] Start: 06-20-2024 End: 06-20-2024 Patient encounter procedure [facility] 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[facility] Work Phone: Start: 06-20-2024 End: 06-20-2024 Periodic preventive med est patient 40-64yrs [facility] 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[facility] [place] Comment on above: Well woman exam with routine gynecological exam (Primary Dx); Standardized adult depression screening tool completed; Surveillance of contraceptive pill Start: 06-09-2024 End: 06-09-2024 Office outpatient visit 15 minutes Maci Bach DO Work Phone: [facility] - [facility] Comment on above: Status post colonosc opy with polypectomy (Primary Dx); Rectal bleeding; Tubular adenoma of colon Start: 06-09-2024 End: 06-09-2024 ambulatory MACI BACH [facility] Start: 06-06-2024 End: 06-06-2024 Refill Qi Morgan HEALTH CARE CONSULTANT-FOOTBALL PAD REPAIRER Work Phone: [facility] [place] Comment on above: Surveillance of cont raceptive pill Start: 06-06-2024 End: 06-06-2024 Telephone encounter Maci Bach DO [facility] Comment on above: Rectal bleeding (Samira william Dx) Start: 06-06-2024 End: 06-06-2024 Office outpatient visit 15 minutes Bhavin J John HEALTH CARE CONSULTANT-FOOTBALL PAD REPAIRER Work Phone: [facility] Comment on above: Class 2 obesity due to excess calories with body mass index (BMI) of 35.0 to 35.9 in adult, unspecified whether serious comorbidity present (Primary Dx) Start: 06-06-2024 End: 06-06-2024 ambulatory [facility] Start: 06-06-2024 End: 06-06-2024 Emergency department patient visit [facility] Start: 06-02-2024 End: 06-02-2024 Evaluation and management of inpatient MACI BACH [facility] Start: 06-01-2024 End: 06-01-2024 ambulatory [facility] Pat Phone Call Provider 1 [facility] - Pre Admit Start: 06-01-2024 End: 06-01-2024 ambulatory [facility] Start: 04-18-2024 End: 04-18-2024 ambulatory CHELSEA GIRALDO Not Available Start: 03-20-2024 End: 03-20-2024 Refill Qi Morgan HEALTH CARE CONSULTANT-FOOTBALL PAD REPAIRER Work Phone: [facility] Comment on above: Surveillance of cont raceptive pill Start: 03-17-2024 End: 03-20-2024 Refill Colleen Zoraida [facility] Comment on above: Mixed hyperlipidemia Start: 03-16-2024 End: 03-16-2024 Office outpatient visit 25 minutes Bhavin J John HEALTH CARE CONSULTANT-FOOTBALL PAD REPAIRER Work Phone: [facility] Comment on above: Type 2 diabetes yvonne itus without complication, without long- term current use of insulin ([facility]) (Primary Dx); Essential hypertension; Mixed hyperlipidemia; Positive colorectal cancer screening using Cologuard test Start: 03-16-2024 End: 03-16-2024 ambulatory BHAVINHANG LOPEZ [facility] Start: 12-16-2023 Refill Bhavin cho HEALTH CARE CONSULTANT-FOOTBALL PAD REPAIRER Work Phone: [facility] Comment on above: Mixed hyperlipidemia Start: 12-14-2023 End: 12-14-2023 Office outpatient visit 25 minutes Bhavin J John HEALTH CARE CONSULTANT-FOOTBALL PAD REPAIRER Work Phone: [facility] Comment on above: Type 2 diabetes yvonne itus without complication, without long- term current use of insulin ([facility]) (Primary Dx); Essential hypertension; Mixed hyperlipidemia Start: 10-08-2023 Refill Bhavin cho HEALTH CARE CONSULTANT-FOOTBALL PAD REPAIRER Work Phone: [facility] - [facility] Comment on above: Type 2 diabetes yvonne itus without complication, without long- term current use of insulin ([facility]); Essential hypertension Start: 09-03-2022 End: 09-04-[address] DOCTOR CHAVEZ Facility:[facility] Start: 10-06-2021 End: 10-06-[address] DO[address] CHAVEZ Facility:[facility] Procedures Date Procedure Procedure Detail Performing Clinician Start: 01-31-2025 Hemoglobin glycosylated a1c Bhavin Cerda John HEALTH CARE CONSULTANT-FOOTBALL PAD REPAIRER Work Phone: Start: 01-31-2025 Adult depression scr eening assessment Bhavin Lopez HEALTH CARE CONSULTANT-FOOTBALL PAD REPAIRER Work Phone: Start: 11-02-2024 Hemoglobin glycosylated a1c Bhavin Prashant Lopez HEALTH CARE CONSULTANT-FOOTBALL PAD REPAIRER Work Phone: Start: 11-02-2024 Adult depression scr eening assessment Bhavin Lopez HEALTH CARE CONSULTANT-FOOTBALL PAD REPAIRER Work Phone: Start: 10-05-2024 Adult depression scr eening assessment Bhavin Lopez HEALTH CARE CONSULTANT-FOOTBALL PAD REPAIRER Work Phone: Start: 09-29-2024 End: 09-29-2024 Infectious agent dna/rna influenza 1st 2 types Ray Culver DO Work Phone: Start: 08-22-2024 Diabetic retinal eye exam Bhavin Lopez HEALTH CARE CONSULTANT-FOOTBALL PAD REPAIRER Work Phone: Start: 08-02-2024 Iaadiadoo streptococ cus group a Bhavin Lopez HEALTH CARE CONSULTANT-FOOTBALL PAD REPAIRER Work Phone: Start: 06-21-2024 Hemoglobin glycosylated a1c Bhavin Lopez HEALTH CARE CONSULTANT-FOOTBALL PAD REPAIRER Work Phone: Start: 06-21-2024 Adult depression scr eening assessment [facility] 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Start: 06-06-2024 Adult depression scr eening assessment Maci Bach DO Work Phone: Start: 06-02-2024 Colonoscopy Maci Bach DO Work Phone: Start: 03-16-2024 Hemoglobin glycosylated a1c Bhavin Lopez HEALTH CARE CONSULTANT-FOOTBALL PAD REPAIRER Work Phone: Start: 03-16-2024 Adult depression scr eening assessment Bhavin Lopez HEALTH CARE CONSULTANT-FOOTBALL PAD REPAIRER Work Phone: Start: 03-06-2024 Mammography Bhavin wan HEALTH CARE CONSULTANT-FOOTBALL PAD REPAIRER Work Phone: Start: 12-14-2023 Hemoglobin glycosylated a1c Bhavin Lpoez HEALTH CARE CONSULTANT-FOOTBALL PAD REPAIRER Work Phone: Start: 12-14-2023 Adult depression scr eening assessment Bhavin Lopez HEALTH CARE CONSULTANT-FOOTBALL PAD REPAIRER Work Phone: Start: 09-14-2023 Diabetic retinal eye exam Bhavin Lopez HEALTH CARE CONSULTANT-FOOTBALL PAD REPAIRER Work Phone: Start: 09-01-2023 Adult depression scr eening assessment Bhavin Lopez HEALTH CARE CONSULTANT-FOOTBALL PAD REPAIRER Work Phone: Start: 09-04-2022 Mammography Bhavin wan [facility] Work Phone: Start: 04-15-2022 Microscopic observat ion [Identifier] in Cervix by Cyto stain Bhavin Lopez [facility] Work Phone: Start: 08-30-2021 Microalbumin [Mass/v olume] in Urine by Test strip Bhavin Lopez [facility] Work Phone: Plan of Treatment Date Care Activity Detail Author Start: 06-02-2034 Screening for malign ant neoplasm of colon Colonoscopy [facility] Start: 07-18-2026 Screening for malign ant neoplasm of colon [facility] Start: 05-28-2026 Statin Use: Diabetic Statin Use: Krysten betic [facility] Start: 01-31-2026 Adult BMI Follow Up Plan Adult BMI Follow Up Plan [facility] Start: 01-31-2026 Adult BMI Screening Adult BMI Screen ing [facility] Start: 01-31-2026 [facility] Start: 01-31-2026 Tobacco Screening Tobacco Screening [facility] Start: 11-27-2025 Adult BMI Follow Up Plan Adult BMI Follow Up Plan [facility] Start: 11-27-2025 Adult BMI Screening Adult BMI Screen ing [facility] Start: 11-27-2025 Tobacco Screening Tobacco Screening [facility] Start: 11-02-2025 Adult BMI Follow Up Plan Adult BMI Follow Up Plan [facility] Start: 11-02-2025 Adult BMI Screening Adult BMI Screen ing [facility] Start: 11-02-2025 [facility] Start: 11-02-2025 Tobacco Screening Tobacco Screening [facility] Start: 10-05-2025 Adult BMI Follow Up Plan Adult BMI Follow Up Plan [facility] Start: 10-05-2025 Adult BMI Screening Adult BMI Screen ing [facility] Start: 10-05-2025 Depression Screening Depression Scre ening [facility] Start: 10-05-2025 Tobacco Screening Tobacco Screening [facility] Start: 09-04-2025 Adult BMI Follow Up Plan Adult BMI Follow Up Plan [facility] Start: 09-04-2025 Adult BMI Screening Adult BMI Screen ing [facility] Start: 09-04-2025 Tobacco Screening Tobacco Screening [facility] Start: 08-22-2025 Glaucoma screening Diabetic Op hthalmology Exam [facility] Start: 08-02-2025 Adult BMI Follow Up Plan Adult BMI Follow Up Plan [facility] Start: 08-02-2025 Tobacco Screening Tobacco Screening [facility] Start: 07-05-2025 Adult BMI Follow Up Plan Adult BMI Follow Up Plan [facility] Start: 07-05-2025 Adult BMI Screening Adult BMI Screen ing [facility] Start: 07-05-2025 Tobacco Screening Tobacco Screening [facility] Start: 07-04-2025 End: 07-04-2025 Patient encounter procedure [facility] - [facility] Start: 06-21-2025 Adult BMI Follow Up Plan Adult BMI Follow Up Plan [facility] Start: 06-21-2025 Adult BMI Screening Adult BMI Screen ing [facility] Start: 06-21-2025 Depression Screening Depression Scre ening [facility] Start: 06-21-2025 Tobacco Screening Tobacco Screening [facility] Start: 06-20-2025 Adult BMI Follow Up Plan Adult BMI Follow Up Plan [facility] Start: 06-09-2025 Adult BMI Screening Adult BMI Screen ing [facility] Start: 06-09-2025 Tobacco Screening Tobacco Screening [facility] Start: 06-06-2025 Adult BMI Follow Up Plan Adult BMI Follow Up Plan [facility] Start: 06-06-2025 Adult BMI Screening Adult BMI Screen ing [facility] Start: 06-06-2025 Depression Screening Depression Scre ening [facility] Start: 06-06-2025 Tobacco Screening Tobacco Screening [facility] Start: 06-02-2025 Adult BMI Screening Adult BMI Screen ing [facility] Start: 06-02-2025 Tobacco Screening Tobacco Screening [facility] Start: 04-15-2025 Screening for malign ant neoplasm of cervix Pap Smear [facility] Start: 03-16-2025 Adult BMI Follow Up Plan Adult BMI Follow Up Plan [facility] Start: 03-16-2025 Adult BMI Screening Adult BMI Screen ing [facility] Start: 03-16-2025 Depression Screening Depression Scre ening [facility] Start: 03-16-2025 Tobacco Screening Tobacco Screening [facility] Start: 03-06-2025 Screening for malign ant neoplasm of breast Mammogram [facility] Start: 01-23-2025 End: 01-23-2025 Patient encounter procedure 01/23/2025 3:40 PM EDT Office Visit [facility] - [facility] Medicine [address] [place] [address] Bhavin Lopez, HEALTH CARE CONSULTANT-FOOTBALL PAD REPAIRER [address] [place] [address] [facility] Start: 12-25-2024 End: 12-25-2024 Patient encounter procedure 12/25/2024 4:00 PM EDT Office Visit [facility] - [facility] Medicine [address] [place] [address] Bhavin Lopez, HEALTH CARE CONSULTANT-FOOTBALL PAD REPAIRER [address] [place] [address] [facility] - [facility] Start: 12-19-2024 End: 12-19-2024 Patient encounter procedure 12/19/2024 8:15 AM EST Office Visit [facility] [address] [place] [id number] Charlette Sampsno MD [address] [place] [address] [facility] Start: 12-14-2024 Adult BMI Follow Up Plan Adult BMI Follow Up Plan [facility] Start: 12-14-2024 Adult BMI Screening Adult BMI Screen ing [facility] Start: 12-14-2024 Depression Screening Depression Scre ening [facility] Start: 12-14-2024 Tobacco Screening Tobacco Screening [facility] Start: 12-11-2024 End: 12-11-2024 Patient encounter procedure 12/11/2024 9:15 AM EST Office Visit [facility] [address] [place] [id number] Charlette Sampson MD [address] [place] [address] Arrived [facility] Comment on above: Arrived Start: 11-27-2024 End: 11-27-2024 Patient encounter procedure 11/27/2024 8:00 AM EST Office Visit [facility] [address] [place] [address] Bhavin Lopez, HEALTH CARE CONSULTANT-FOOTBALL PAD REPAIRER [address] [place] [address] [facility] Start: 11-02-2024 End: 11-02-2024 Patient encounter procedure [facility] Start: 10-05-2024 End: 10-05-2024 Patient encounter procedure 10/05/2024 2:40 PM EST Office Visit [facility] [address] [place] [address] Bhavin Lopez, HEALTH CARE CONSULTANT-FOOTBALL PAD REPAIRER [address] [place] [address] [facility] Start: 09-20-2024 End: 09-20-2024 Patient encounter procedure 09/20/2024 3:40 PM EST Office Visit [facility] [address] [place] [address] Bhavin Lopez, HEALTH CARE CONSULTANT-FOOTBALL PAD REPAIRER [address] [place] [address] [facility] Internal Medicine - Family Medicine Start: 09-14-2024 Glaucoma screening Diabetic Op hthalmology Exam [facility] Start: 09-01-2024 Adult BMI Follow Up Plan Adult BMI Follow Up Plan [facility] Start: 09-01-2024 Adult BMI Screening Adult BMI Screen ing [facility] Start: 09-01-2024 Depression Screening Depression Scre ening [facility] Start: 09-01-2024 Diabetic foot examination Diabetic Foot Exam [facility] Start: 09-01-2024 Tobacco Screening Tobacco Screening [facility] Start: 08-31-2024 End: 08-31-2024 Patient encounter procedure 08/31/2024 4:20 PM EST Office Visit [facility] Internal Medicine - Family Medicine [address] [place] [address] Bhavin Lopez, HEALTH CARE CONSULTANT-FOOTBALL PAD REPAIRER [address] [place] [address] [facility] Internal Medicine - Family Medicine Start: 08-02-2024 End: 08-02-2024 Patient encounter procedure 08/02/2024 1:40 PM EDT Office Visit [facility] Internal Medicine - Family Medicine [address] [place] [address] Bhavin Lopez, HEALTH CARE CONSULTANT-FOOTBALL PAD REPAIRER [address] [place] [address] [facility] Internal Medicine - Family Medicine Start: 07-05-2024 End: 07-05-2024 Patient encounter procedure 07/05/2024 3:20 PM EDT Office Visit [facility] Internal Medicine - Family Medicine [address] [place] [address] Bhavin Lopez, HEALTH CARE CONSULTANT-FOOTBALL PAD REPAIRER [address] [place] [address] [facility] Internal Medicine - Family Medicine Start: 06-21-2024 End: 06-21-2024 Patient encounter procedure [facility] Internal [facility] Start: 06-20-2024 End: 06-20-2024 Patient encounter procedure 06/20/2024 3:30 PM EDT Office Visit [facility] [address] [place] [address] [facility] [place] Start: 06-18-2024 COVID-19 Vaccine ( season) COVID-19 Vaccine ( season) [facility] Start: 06-18-2024 COVID-19 Vaccine ( season) COVID-19 Vaccine () [facility] Start: 06-18-2024 Influenza vaccination Influenza Vacc ine (#1) [facility] Start: 06-06-2024 End: 06-06-2024 Patient encounter procedure 06/06/2024 1:40 PM EDT Office Visit [facility] [address] [place] [address] Bhavin Lopez, HEALTH CARE CONSULTANT-[facility] [address] [place] [address] [facility] Internal Medicine - Family Medicine Start: 06-02-2024 End: 06-02-2024 Colonoscopy flx dx w/collj spec when pfrmd COLONOSCOPY DIAGNOSTIC / SCREENING positive cologuard 06/02/2024 12:00 PM EDT [facility] Start: 04-29-2024 DTaP,Tdap and Td Vaccines (2 - Td or Tdap) DTaP,Tdap and Td Vaccines (2 - Td or Tdap) [facility] Start: 03-16-2024 End: 03-16-2024 Patient encounter procedure 03/16/2024 4:00 PM EDT Office Visit [facility] Internal Medicine - Family Medicine [address] [place] [address] Bhavin Lopez, HEALTH CARE CONSULTANT-FOOTBALL PAD REPAIRER [address] [place] [address] [facility] Start: 12-07-2023 End: 12-07-2023 Patient encounter procedure 12/07/2023 4:00 PM EST [facility] [address] [place] [address] Bhavin Lopez, HEALTH CARE CONSULTANT-FOOTBALL PAD REPAIRER [address] [place] [address] [facility] Internal Medicine [facility] Start: 09-04-2023 Screening for malign ant neoplasm of breast Mammogram [facility] Start: 06-18-2023 COVID-19 Vaccine ( season) COVID-19 Vaccine () [facility] Start: 08-30-2022 Urine screening for protein Urine Microalbumin [facility] Start: 2021 Screening for malign ant neoplasm of colon Colonoscopy [facility] Start: 2006 Screening for malign ant neoplasm of cervix [facility] Start: 1997 Screening for malign ant neoplasm of cervix Pap Smear [facility] Start: 1976 Screening for malign ant neoplasm of colon [facility] End: 06-06-2025 CBC W Auto Differential panel - Blood CBC auto differential Lab Routine Rectal bleeding 1 Occurrences starting 06/06/2024 until 06/06/2025 [facility] Work Phone: Comment on above: 1 Occurrences starti ng 06/06/2024 until 06/06/2025 Colonoscopy flx dx w/collj spec when pfrmd COLONOSCOPY DIAGNOSTIC / SCREENING Positive colorectal cancer screening using Cologuard test [facility] End: 06-21-2025 Comprehensive metabolic 2000 panel - Serum or Plasma Comprehensive metabolic panel Lab Routine Blood tests for routine general physical examination 1 Occurrences starting 06/21/2024 until 06/21/2025 [facility] Work Phone: Comment on above: 1 Occurrences starti ng 06/21/2024 until 06/21/2025 End: 06-21-2025 Lipid 1996 panel - Serum or Plasma Lipid profile Lab Routine Blood tests for routine general physical examination 1 Occurrences starting 06/21/2024 until 06/21/2025 [facility] Comment on above: 1 Occurrences starti ng 06/21/2024 until 06/21/2025 End: 06-21-2025 Thyrotropin [Units/volume] in Serum or Plasma TSH Lab Routine Blood tests for routine general physical examination 1 Occurrences starting 06/21/2024 until 06/21/2025 [facility] Comment on above: 1 Occurrences starti ng 06/21/2024 until 06/21/2025 Immunizations Immunization Date Immunization Notes Care Provider [facility] 09-03-2021 influenza, injectabl e, quadrivalent, preservative free Bhavin Lopez HEALTH CARE CONSULTANT-FOOTBALL PAD REPAIRER Work Phone: [facility] 09-03-2021 influenza virus vacc ine, unspecified formulation Angelito Ana Laura DO Work Phone: [facility] 01-29-2021 COVID-19, mRNA, LNP- S, PF, 30mcg/0.3mL Dose Bhavin Lopez HEALTH CARE CONSULTANT-FOOTBALL PAD REPAIRER Work Phone: [facility] Work Phone: 01-29-2021 SARS-COV-2 (COVID-19 ) Vaccine, Unspecified Bhavin Lopez HEALTH CARE CONSULTANT-FOOTBALL PAD REPAIRER Work Phone: [facility] 08-07-2020 influenza, injectabl e, quadrivalent, preservative free Bhavin Lopez HEALTH CARE CONSULTANT-FOOTBALL PAD REPAIRER Work Phone: [facility] 08-05-2019 Seasonal, quadrivale nt, recombinant, injectable influenza vaccine, preservative free Bhavin Lopez HEALTH CARE CONSULTANT-FOOTBALL PAD REPAIRER Work Phone: [facility] 09-26-2018 pneumococcal polysaccharide vaccine, 23 valent Bhavin Lopez HEALTH CARE CONSULTANT-FOOTBALL PAD REPAIRER Work Phone: [facility] 07-10-2018 influenza, injectabl e, quadrivalent, preservative free Bhavin Lopez [facility] Work Phone: [facility] 04-29-2014 tetanus toxoid, redu fabio diphtheria toxoid, and acellular pertussis vaccine, adsorbed Bhavin Lopez [facility] Work Phone: [facility] 11-04-2013 influenza virus vacc ine, unspecified formulation Bhavin Lopez [facility] Work Phone: [facility] Payers Date Payer Category Payer Unknown [id number] 2022 Managed Care Other (unspecified) [employer] [id number] 2022 Private Health Insurance [id number] 2022 Unknown [id number] 1976 Unknown [id number] 2.16.840.1.018592.3.579. 2.593 1976 Unknown [id number] 2.16.840.1.552803.3.579. 2.593 1976 Unknown [id number] 2.16.840.1.963151.3.579. 2.1285 1976 Unknown [id number] 2.16.840.1.784014.3.579. 2.1285 1976 Unknown [id number] 2.16.840.1.610039.3.579. 2.1285 1976 Unknown [id number] 2.16.840.1.579723.3.579. 2.1285 1976 Unknown [id number] 2.16.840.1.653448.3.579. 2.1258 1976 Unknown [id number] 2.16.840.1.234892.3.579. 2.1258 1976 Unknown [id number] 2.16.840.1.776325.3.579. 2.1258 1976 Unknown [id number] 2.16.840.1.255368.3.579. 2.1258 1976 Unknown [id number] 2.16.840.1.967037.3.579. 2.1285 1976 Unknown [id number] 2.16.840.1.775855.3.579. 2.1285 1976 Unknown [id number] 2.16.840.1.194917.3.579. 2.1285 1976 Unknown [id number] 2.16.840.1.705476.3.579. 2.1285 1976 Unknown [id number] 2.16.840.1.003059.3.579. 2.1285 1976 Unknown [id number] 2.16.840.1.369829.3.579. 2.1285 1976 Unknown [id number] 2.16.840.1.590662.3.579. 2.1285 1976 Unknown [id number] 2.16.840.1.428572.3.579. 2.1285 1976 Unknown [id number] 2.16.840.1.684008.3.579. 2.1286 1976 Unknown [id number] 2.16.840.1.866176.3.579. 2.1286 1976 Unknown [id number] 2.16.840.1.122814.3.579. 2.1286 1976 Unknown [id number] 2.16.840.1.665761.3.579. 2.1286 1976 Unknown [id number] 2.16.840.1.676625.3.579. 2.732 1959 Unknown [id number] Social History Date Type Detail Facility Start: 04-27-2023 End: 04-18-2024 Tobacco smoking status NVIS Ex-smoker [facility] History of tobacco use Current smoker [facility] History of tobacco use Cigarette Smoker [facility] Start: 04-27-2023 End: 04-18-2024 Tobacco use and exposure Smokeless tobacco non-user [facility] Start: 09-29-2024 End: 12-13-2024 Alcoholic beverage intake Lifetime non-drinker (finding) [facility] Start: 11-15-2020 End: 04-19-2024 History of Social function [facility] Start: 11-15-2020 End: 04-19-2024 Tobacco use panel [facility] Start: 1975 Sex assigned at Not on file P [facility] Start: 10-05-2024 End: 01-31-2025 Alcoholic beverage intake Current non-drinker of alcohol (finding) [facility] How hard is it for y ou to pay for the very basics like food, housing, medical care, and heating Not hard at all [facility] Start: 05-23-2015 Sex Female (finding) [facility] Medical Equipment Procedure Code Equipment Code Equipment Origin al Text Equipment Identifier Dates 1 strip by miscellaneous route 2 (two) times a day. [id number] Start: 05-15-2020 Inject 1 strip i nto the skin See Admin Instructions. Monitor blood sugar twice daily and as needed [id number] Start: 08-28-2020 Clinical Notes 12-14-2023 to 01-31-2025 Bhavin Lopez, HEALTH CARE CONSULTANT-[facility] - 01/31/2025 8:40 AM Pasha Sampson MD - 12/13/2024 3:00 PM Mario Sampson MD - 12/11/2024 9:15 AM Valentina Lopez, RACHAEL-[facility] - 11/27/2024 8:00 AM EST Note Date & Type Note Facility 01-31-2025 History of Present illness Narrative Images from the original note were not included. [address] [place] [address] SUBJECTIVE: Patient ID: Jim Huerta is a 49 y.o. female. Chief Complaint Patient presents with weight check Diabetes Presents for DM follow up She was taking phentermine for weight loss but stopped last month. States she gave up on her lifestyle change of diet. Has subsequently gained back 12 pounds. Diabetes She presents for her follow-up diabetic [...] routinely checking. An ANGELO inhibitor/angiotensin II receptor lynne is being taken. 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 Hyperlipidemia This is a chronic problem. The [...] Surgical History: Procedure Laterality Date SECTION breach COLONOSCOPY DIAGNOSTIC / SCREENING N/A 06/02/2024 Performed by Maci Bach DO at [facility] DILATION AND CURETTAGE OF UTERUS 3 ab and 1 still born //neg for antiphospholipid work up Past Medical History: Diagnosis Date High cholesterol Visual impairment Immunization History Administered Date(s) Administered COVID-19, mRNA, LNP-S, PF, 30mcg/0.3mL Dose 01/08/2021, 01/29/2021, 09/25/2021 Influenza, Injectable, quadrivalent (PF) 07/10/2018, 08/07/2020, 09/03/2021 Influenza, Recombinant, Quadrivalent, Injectable, Preserv 08/05/2019 Influenza, Unspecified 11/04/2013 Pneumococcal Polysaccharide 09/26/2018 SARS-COV-2 (COVID-19) Vaccine, Unspecified 01/29/2021 Tdap 04/29/2014 REVIEW OF SYSTEMS: Review of Systems Constitutional: Negative for chills and fever. HENT: Negative. Eyes: Negative for visual disturbance. Respiratory: Negative for chest tightness and shortness of breath. Cardiovascular: Negative for chest pain and palpitations. Gastrointestinal: Negative. Endocrine: Negative. Genitourinary: Negative for menstrual problem and pelvic pain. Musculoskeletal: Negative. Skin: Negative. Allergic/Immunologic: Negative. Neurological: Negative for syncope and facial asymmetry. Hematological: Does not bruise/bleed easily. Psychiatric/Behavioral: Negative. PHYSICAL EXAMINATION: Vitals: 01/31/25 0842 BP: 130/80 BP Site: Left Arm BP Postition: Sitting BP CUFF SIZE: M (9-13 inches) Pulse: 65 Resp: 16 Temp: 36.8 C (98.2 F) TempSrc: Tympanic SpO2: 97% Weight: 91.8 kg (202 lb 6.4 oz) Height: 165.1 cm (5' 5 ) [...] normal. ASSESSMENT/PLAN: Jim was seen today for weight check and diabetes. Diagnoses and all orders for this visit: Type 2 diabetes mellitus without complication, without long-term current use of insulin ([facility]) - POCT Hemoglobin A1c Mixed hyperlipidemia - rosuvastatin (CRESTOR) 5 mg tablet; Take 1 tablet (5 mg total) by mouth in the morning. Benign essential HTN Type 2 DM A1c 5.8%, was 6% Encourage routine home blood sugar monitoring, diet modification, and exercise regimen. Continue Glucovance 2.5-500 mg oral twice daily Yearly eye exams or as directed by eye provider Daily self skin foot check 2. HTN Controlled 130/80 Continue amlodipine 5 mg oral daily 3. Mixed hyperlipidemia Continue rosuvastatin 5 mg oral daily 4. Body mass index is 33.68 kg/m . Patient noted to have elevated BMI and the following intervention(s) were applied: Discussed current weight today. Consider healthy food choices, portion control. Avoid sugary beverages and high concentrated sweets. Routine exercise regimen encouraged. ALL QUESTIONS ANSWERED Total time spent was 25 minutes: Preparing to see the patient (e.g., review of tests) Obtaining and/or reviewing separately obtained history Performing a medically appropriate examination and/or evaluation Counseling and educating the patient/family/caregiver Ordering medications, tests, or procedures Follow-up: Annual physical With labs, A1c FRIDA Zamora 01/31/25 0924 documented in this encounter [facility] 12-13-2024 History of Present illness Narrative Assessment/Plan continue same regiman If no improvement plan CT orbits documented in this encounter [facility] 12-11-2024 History of Present illness Narrative Assessment/Plan begin doxycycline 100 bid Tobradex qid documented in this encounter [facility] 11-27-2024 History of Present illness Narrative Images from the original note were not included. [address] [facility] [id number] SUBJECTIVE: Patient ID: Jim Huerta is a 49 y.o. female. Chief Complaint Patient presents with Weight Check Patient has lost 4 pounds this month. Total weight loss is 24 pounds since starting phentermine. She contributes more weight loss this month due to increased physical activity. Has outdoor swimspa. Dietary regimen includes elimination of sugar and portion control. The following portions of the patient's history were reviewed and updated as appropriate: allergies, current medications, past family history, past medical history, past social history, past surgical history and problem list. Past Surgical History: Procedure Laterality Date SECTION breach COLONOSCOPY DIAGNOSTIC / SCREENING N/A 06/02/2024 Performed by Maci Bach DO at [facility] DILATION AND CURETTAGE OF UTERUS 3 ab and 1 still born //neg for antiphospholipid work up Past Medical History: Diagnosis Date High cholesterol Visual impairment Immunization History Administered Date(s) Administered COVID-19, mRNA, LNP-S, PF, 30mcg/0.3mL Dose 01/08/2021, 01/29/2021, 09/25/2021 Influenza, Injectable, quadrivalent (PF) 07/10/2018, 08/07/2020, 09/03/2021 Influenza, Recombinant, Quadrivalent, Injectable, Preserv 08/05/2019 Influenza, Unspecified 11/04/2013 Pneumococcal Polysaccharide 09/26/2018 SARS-COV-2 (COVID-19) Vaccine, Unspecified 01/29/2021 Tdap 04/29/2014 REVIEW OF SYSTEMS: Review of Systems Constitutional: Negative for chills and fever. HENT: Negative. Eyes: Negative for visual disturbance. Respiratory: Negative for chest tightness and shortness of breath. Cardiovascular: Negative for chest pain and palpitations. Gastrointestinal: Negative. Endocrine: Negative. Genitourinary: Negative for menstrual problem and pelvic pain. Musculoskeletal: Negative. Skin: Negative. Neurological: Negative for syncope and facial asymmetry. Hematological: Does not bruise/bleed easily. Psychiatric/Behavioral: Negative. PHYSICAL EXAMINATION: Vitals: 11/27/24 0756 BP: 122/82 BP Site: Left Arm BP Postition: Sitting Pulse: 77 Resp: 18 Temp: 36.8 C (98.2 F) TempSrc: Oral SpO2: 98% Weight: 86.2 kg (190 lb) Height: 165.1 cm (5' 5 ) Patient [...] normal. ASSESSMENT/PLAN: Jim was seen today for weight check. Diagnoses and all orders for this visit: Class 1 obesity due to excess calories without serious comorbidity with body mass index (BMI) of 31.0 to 31.9 in adult - phentermine (ADIPEX-P) 37.5 mg tablet; Take 1 tablet (37.5 mg total) by mouth every morning before breakfast. Body mass index is 31.62 kg/m . Patient noted to have elevated BMI and the following intervention(s) were applied: Discussed current weight today. Consider healthy food choices, portion control. Avoid sugary beverages and high concentrated sweets. Routine exercise regimen encouraged. Patient has lost 4 pounds this month. Total weight loss is 24 pounds since starting phentermine. She contributes more weight loss this month due to increased physical activity. Has outdoor swimspa. Dietary regimen includes elimination of sugar and portion control. She wishes to proceed with phentermine 37.5 mg oral daily. The OARRS/MAPPS database was reviewed today and found to be appropriate. No indication of medication diversion, or non compliance. ALL QUESTIONS ANSWERED Total time spent was 25 minutes: Preparing to see the patient (e.g., review of tests) Obtaining and/or reviewing separately obtained history Performing a medically appropriate examination and/or evaluation Counseling and educating the patient/family/caregiver Ordering medications, tests, or procedures Follow-up: One month Weight loss FRIDA Zamora 11/27/24 0814 documented in this encounter [employer] 11-02-2024 History of Present illness Narrative Images from the original note were [place] [address] SUBJECTIVE: Patient ID: Jim Huerta is a 49 y.o. female. Chief Complaint Patient presents with Weight Check Diabetes Hypertension Presents for DM and weight check follow up today Patient has lost 2 pounds this month. Total weight loss is 20 pounds since starting phentermine. States she is following lower sugar, no processed food. She is now exercising 3 times per week in her swimspa pool. Diabetes She presents for her follow-up diabetic [...] routinely checking. An ANGELO inhibitor/angiotensin II receptor lynne is being taken. 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 Hyperlipidemia This is a chronic problem. The [...] Surgical History: Procedure Laterality Date SECTION breach COLONOSCOPY DIAGNOSTIC / SCREENING N/A 06/02/2024 Performed by Maci Bach DO at [facility] DILATION AND CURETTAGE OF UTERUS 3 ab and 1 still born //neg for antiphospholipid work up Past Medical History: Diagnosis Date High cholesterol Visual impairment Immunization History Administered Date(s) Administered COVID-19, mRNA, LNP-S, PF, 30mcg/0.3mL Dose 01/08/2021, 01/29/2021, 09/25/2021 Influenza, Injectable, quadrivalent (PF) 07/10/2018, 08/07/2020, 09/03/2021 Influenza, Recombinant, Quadrivalent, Injectable, Preserv 08/05/2019 Influenza, Unspecified 11/04/2013 Pneumococcal Polysaccharide 09/26/2018 SARS-COV-2 (COVID-19) Vaccine, Unspecified 01/29/2021 Tdap 04/29/2014 REVIEW OF SYSTEMS: Review of Systems Constitutional: Negative for chills and fever. HENT: Negative. Eyes: Negative for visual disturbance. Respiratory: Negative for chest tightness and shortness of breath. Cardiovascular: Negative for chest pain and palpitations. Gastrointestinal: Negative. Endocrine: Negative. Genitourinary: Negative for menstrual problem and pelvic pain. Musculoskeletal: Negative. Skin: Negative. Allergic/Immunologic: Negative. Neurological: Negative for syncope and facial asymmetry. Hematological: Does not bruise/bleed easily. Psychiatric/Behavioral: Negative. PHYSICAL EXAMINATION: Vitals: 11/02/24 1606 BP: 122/70 BP Site: Left Arm BP Postition: Sitting BP CUFF SIZE: L (13-17 inches) Pulse: 80 Resp: 18 Temp: 36.4 C (97.6 F) TempSrc: Oral SpO2: 99% Weight: 88 kg (194 lb) Height: 165.1 cm (5' 5 ) Patient [...] normal. ASSESSMENT/PLAN: Jim was seen today for weight check, diabetes and hypertension. Diagnoses and all orders for this visit: Type 2 diabetes mellitus without complication, without long-term current use of insulin ([facility]) - POCT Hemoglobin A1c 2. Type 2 DM A1c 6% Continue Glucovance 2.5-500 mg oral twice daily Encourage routine home blood sugar monitoring, diet modification, and exercise regimen. Daily self skin foot checks Yearly eye exams or as directed by eye provider 3. HTN Controlled 122/70 Continue amlodipine 5 mg oral daily 4. Mixed hyperlipidemia Continue rosuvastatin 5 mg oral daily 5. Body mass index is 32.28 kg/m . Patient noted to have elevated BMI and the following intervention(s) were applied: Discussed current weight today. Consider healthy food choices, portion control. Avoid sugary beverages and high concentrated sweets. Routine exercise regimen encouraged. -Has lost 2 pounds this past month. Total weight loss is 20 pounds since starting phentermine. She wishes to continue phentermine 37.5 mg oral daily ALL QUESTIONS ANSWERED Total time spent was 30 minutes: Preparing to see the patient (e.g., review of tests) Obtaining and/or reviewing separately obtained history Performing a medically appropriate examination and/or evaluation Counseling and educating the patient/family/caregiver Ordering medications, tests, or procedures Follow-up: One month Weight check FRIDA Zamora 11/02/24 1634 documented in this encounter [employer] 10-05-2024 History of Present illness Narrative Images from the original note were not included. [address] [place] [address] SUBJECTIVE: Patient ID: Jim Huerta is a 49 y.o. female. Chief Complaint Patient presents with Weight Check Presents for weight check. Has not lost weight this month. Total weight lost is 18 pounds. Has not lost weight this month. We discussed following chosen dietary diet and exercise. She admits she has not followed her plan for almost two weeks due to not feeling well. Additional complaint today includes sinuitis symptoms. States she has been experiencing cough, congestion with yellow secretions, sore throat, and ear pain. Has history of having strep throat. She did go to urgent care on the , was negative. Sinusitis This is a new problem. The current episode started 1 to 4 weeks ago. The problem has been waxing and waning since onset. The maximum temperature recorded prior to her arrival was 100.4 - 100.9 F. The fever has been present for Less than 1 day. Her pain is at a severity of 5/10. The pain is moderate. Associated symptoms include congestion, coughing, ear pain, headaches, a hoarse voice, sinus pressure, sneezing and a sore throat. Pertinent negatives include no chills or shortness of breath. Past treatments include oral decongestants. The treatment provided mild relief. The following portions of the patient's history were reviewed and updated as appropriate: allergies, current medications, past family history, past medical history, past social history, past surgical history and problem list. Past Surgical History: Procedure Laterality Date SECTION breach COLONOSCOPY DIAGNOSTIC / SCREENING N/A 06/02/2024 Performed by Maci Bach DO at [facility] DILATION AND CURETTAGE OF UTERUS 3 ab and 1 still born //neg for antiphospholipid work up Past Medical History: Diagnosis Date High cholesterol Visual impairment Immunization History Administered Date(s) Administered COVID-19, mRNA, LNP-S, PF, 30mcg/0.3mL Dose 01/08/2021, 01/29/2021, 09/25/2021 Influenza, Injectable, quadrivalent (PF) 07/10/2018, 08/07/2020, 09/03/2021 Influenza, Recombinant, Quadrivalent, Injectable, Preserv 08/05/2019 Influenza, Unspecified 11/04/2013 Pneumococcal Polysaccharide 09/26/2018 SARS-COV-2 (COVID-19) Vaccine, Unspecified 01/29/2021 Tdap 04/29/2014 REVIEW OF SYSTEMS: Review of Systems Constitutional: Positive for fatigue. Negative for chills and fever. HENT: Positive for congestion, ear pain, hoarse voice, postnasal drip, sinus pressure, sinus pain, sneezing, sore throat and voice change. Eyes: Negative for visual disturbance. Respiratory: Positive for cough. Negative for chest tightness and shortness of breath. Cardiovascular: Negative for chest pain and palpitations. Gastrointestinal: Negative. Endocrine: Negative. Genitourinary: Negative for menstrual problem and pelvic pain. Musculoskeletal: Negative. Skin: Negative. Allergic/Immunologic: Negative. Neurological: Positive for headaches. Negative for syncope and facial asymmetry. Hematological: Does not bruise/bleed easily. Psychiatric/Behavioral: Negative. PHYSICAL EXAMINATION: Vitals: 10/05/24 1451 BP: 138/80 BP Site: Left Arm BP Postition: Sitting BP CUFF SIZE: L (13-17 inches) Pulse: 80 Resp: 18 Temp: 36.4 C (97.5 F) TempSrc: Oral SpO2: 99% Weight: 88.9 kg (196 lb) Height: 165.1 cm (5' 5 ) Patient noted to have elevated BMI and the following intervention(s) were applied: encouragement to exercise. Physical Exam Vitals and nursing note reviewed. Constitutional: General: She is not in acute distress. Appearance: She is well-developed. She is not diaphoretic. HENT: Head: Normocephalic and atraumatic. Right Ear: External ear normal. Tympanic membrane is erythematous and bulging. Left Ear: External ear normal. Tympanic membrane is erythematous and bulging. Nose: Nasal tenderness, mucosal edema, congestion and rhinorrhea present. Right Turbinates: Swollen. Left Turbinates: Swollen. Right Sinus: Maxillary sinus tenderness and frontal sinus tenderness present. Left Sinus: Maxillary sinus tenderness and frontal sinus tenderness present. Mouth/Throat: Mouth: Mucous membranes are moist. Pharynx: Posterior oropharyngeal erythema and postnasal drip present. No oropharyngeal exudate. Eyes: General: Right eye: [...] normal. ASSESSMENT/PLAN: Jim was seen today for weight check. Diagnoses and all orders for this visit: Acute bacterial sinusitis - azithromycin (ZITHROMAX) 250 mg tablet; Take 2 tablets the first day, then 1 tablet daily for 4 days. Class 1 obesity due to excess calories with serious comorbidity and body mass index (BMI) of 33.0 to 33.9 in adult - phentermine (ADIPEX-P) 37.5 mg tablet; Take 1 tablet (37.5 mg total) by mouth every morning before breakfast. Body mass index is 32.62 kg/m . Patient noted to have elevated BMI and the following intervention(s) were applied: Discussed current weight today. Consider healthy food choices, portion control. Avoid sugary beverages and high concentrated sweets. Routine exercise regimen encouraged. Has not lost weight this month. We discussed following chosen dietary diet and exercise. She admits she has not followed her plan for almost two weeks due to not feeling well. Reorder phentermine 37.5 mg oral daily. Sinuitis Start Zpak as directed Cool mist humidification for congestion, warm salt water gargles as needed for sore throat. Motrin or Tylenol as needed per concrete tester guidelines for fever or pain. ALL QUESTIONS ANSWERED Total time spent was 25 minutes: Preparing to see the patient (e.g., review of tests) Obtaining and/or reviewing separately obtained history Performing a medically appropriate examination and/or evaluation Counseling and educating the patient/family/caregiver Ordering medications, tests, or procedures Follow-up: One month DM HTN weight check FRIDA Zamora 10/05/24 1529 documented in this encounter [facility] Dr. TATTOFF 09-29-2024 History of Present illness Narrative Images from the original note were not included. [address] , [address] [facility] [place], [address] P: [phone] F: [phone] HPI Historian of HPI: patient Jim Huerta is a 49 y.o. female who presents today to the Urgent Care with the following complaints and denials which have been present for 5 day(s) Pt admits to diarrhea and nausea. Chest pain when coughing. C/O Denies Symptom Comments [x] [] Runny Nose [] [x] Difficulty Swallowing [x] [] Sore Throat [x] [] Cough Productive clear [x] [] Ear Pain Bilateral [] [x] Fever [] [x] Chills [x] [] Nasal Congestion [] [x] Myalgia [] [x] Sinus Pain [] [x] Sinus Pressure Additional Comments: pt has not taken any OTC medications ROS A complete system ROS was performed and negative aside from the pertinent positives noted in the HPI and PE. IH Testing: The following tests were performed PCR Strep Test PCR Flu Test SEE TEST(S) ORDERS FOR RESULTS PHYSICAL EXAM Physical Exam Constitutional: Appearance: Normal appearance. HENT: Head: Normocephalic. Right Ear: Tympanic membrane normal. Left Ear: Tympanic membrane normal. Ears: Comments: Mild fluid behind the right TM. Nose: Congestion present. Comments: Erythematous nasal membranes with mucopurulent drainage present. Cardiovascular: Rate and Rhythm: Normal rate and regular rhythm. Pulmonary: Effort: Pulmonary effort is normal. Breath sounds: No wheezing or rales. Abdominal: Tenderness: There is no abdominal tenderness. There is no guarding. Neurological: Mental Status: She is alert. Psychiatric: Mood and Affect: Mood normal. TREATMENT PLAN Diagnoses and all orders for this visit: Acute non-recurrent maxillary sinusitis (Primary) Pharyngitis, unspecified etiology - STREP DNA PROBE - INFLUENZA DNA PROBE Acute bronchitis, unspecified organism - cefuroxime (Ceftin) 250 MG tablet; 1 po bid until all taken. Viral diarrhea Take medications as prescribed. Use a humidifier when possible. May use acetaminophen or ibuprofen for pain or fever. RTO if worsening. documented in this encounter [facility] 09-04-2024 History of Present illness Narrative Images from the original note were not included. [address] [place] [id number] SUBJECTIVE: Patient ID: Jim Huerta is a 49 y.o. female. Chief Complaint Patient presents with Weight Check Presents for weight loss follow up. Has lost 3 pounds this month. Total 18 pounds. States she has been following portion control and better food choices. Her choices of food include fresh fruits and yogurt. She is having a swim spa delivered tomorrow. She is excited about doing this for exercise. The following portions of the patient's history were reviewed and updated as appropriate: allergies, current medications, past family history, past medical history, past social history, past surgical history and problem list. Past Surgical History: Procedure Laterality Date SECTION breach COLONOSCOPY DIAGNOSTIC / SCREENING N/A 06/02/2024 Performed by Maci Bach DO at [facility] DILATION AND CURETTAGE OF UTERUS 3 ab and 1 still born //neg for antiphospholipid work up Past Medical History: Diagnosis Date High cholesterol Visual impairment Immunization History Administered Date(s) Administered COVID-19, mRNA, LNP-S, PF, 30mcg/0.3mL Dose 01/08/2021, 01/29/2021, 09/25/2021 Influenza, Injectable, quadrivalent (PF) 07/10/2018, 08/07/2020, 09/03/2021 Influenza, Recombinant, Quadrivalent, Injectable, Preserv 08/05/2019 Influenza, Unspecified 11/04/2013 Pneumococcal Polysaccharide 09/26/2018 SARS-COV-2 (COVID-19) Vaccine, Unspecified 01/29/2021 Tdap 04/29/2014 REVIEW OF SYSTEMS: Review of Systems Constitutional: Negative for chills and fever. HENT: Negative. Eyes: Negative for visual disturbance. Respiratory: Negative for chest tightness and shortness of breath. Cardiovascular: Negative for chest pain and palpitations. Gastrointestinal: Negative. Endocrine: Negative. Genitourinary: Negative for menstrual problem and pelvic pain. Musculoskeletal: Negative. Skin: Negative. Allergic/Immunologic: Negative. Neurological: Negative for syncope and facial asymmetry. Hematological: Does not bruise/bleed easily. Psychiatric/Behavioral: Negative. PHYSICAL EXAMINATION: Vitals: 09/04/24 1531 BP: 120/80 BP Site: Left Arm BP Postition: Sitting Pulse: 92 Resp: 18 Temp: 36.6 C (97.8 F) TempSrc: Oral SpO2: 99% Weight: 89.1 kg (196 lb 6.4 oz) Height: 165.1 cm (5' 5 ) [...] normal. ASSESSMENT/PLAN: Jim was seen today for weight check. Diagnoses and all orders for this visit: Class 1 obesity due to excess calories with serious comorbidity and body mass index (BMI) of 33.0 to 33.9 in adult - phentermine (ADIPEX-P) 37.5 mg tablet; Take 1 tablet (37.5 mg total) by mouth every morning before breakfast. The OARRS/MAPPS database was reviewed today and found to be appropriate. No indication of medication diversion, or non compliance. Has lost 3 pounds this month. Total 18 pounds. She wishes to continue to month 4 on phentermine. Reorder. ALL QUESTIONS ANSWERED Total time spent was 25 minutes: Preparing to see the patient (e.g., review of tests) Obtaining and/or reviewing separately obtained history Performing a medically appropriate examination and/or evaluation Counseling and educating the patient/family/caregiver Ordering medications, tests, or procedures Follow-up: One month FRIDA Zamora 09/04/24 1600 [facility] History of Present illness Narrative Images from the original note were not included. [address] [place] [address] SUBJECTIVE: Patient ID: Jim Huerta is a 48 y.o. female. Chief Complaint Patient presents with Weight Check Presents for weight loss follow up She has done very well this month. Has lost 8 pounds this month. Total 15 pounds. States she has been following portion control and better food choices. Her exercise includes walking the dog daily. Additional complaints today is sore throat and right ear pain. She is concerned she may have strep throat. Her son has strep throat right now. Sore Throat This is a new problem. The current episode started in the past 7 days. The problem has been waxing and waning. Neither side of throat is experiencing more pain than the other. There has been no fever. The pain is at a severity of 5/10. The pain is moderate. Associated symptoms include ear pain, a hoarse voice and neck pain. Pertinent negatives include no shortness of breath. She has had exposure to strep. She has tried cool liquids for the symptoms. The treatment provided no relief. The following portions of the patient's history were reviewed and updated as appropriate: allergies, current medications, past family history, past medical history, past social history, past surgical history and problem list. Past Surgical History: Procedure Laterality Date SECTION breach COLONOSCOPY DIAGNOSTIC / SCREENING N/A 06/02/2024 Performed by Maci Bach DO at [facility] DILATION AND CURETTAGE OF UTERUS 3 ab and 1 still born //neg for antiphospholipid work up Past Medical History: Diagnosis Date High cholesterol Visual impairment Immunization History Administered Date(s) Administered COVID-19, mRNA, LNP-S, PF, 30mcg/0.3mL Dose 01/08/2021, 01/29/2021, 09/25/2021 Influenza, Injectable, quadrivalent (PF) 07/10/2018, 08/07/2020, 09/03/2021 Influenza, Recombinant, Quadrivalent, Injectable, Preserv 08/05/2019 Influenza, Unspecified 11/04/2013 Pneumococcal Polysaccharide 09/26/2018 SARS-COV-2 (COVID-19) Vaccine, Unspecified 01/29/2021 Tdap 04/29/2014 REVIEW OF SYSTEMS: Review of Systems Constitutional: Negative for chills and fever. HENT: Positive for ear pain, hoarse voice, sore throat and voice change. Eyes: Negative for visual disturbance. Respiratory: Negative for chest tightness and shortness of breath. Cardiovascular: Negative for chest pain and palpitations. Gastrointestinal: Negative. Endocrine: Negative. Genitourinary: Negative for menstrual problem and pelvic pain. Musculoskeletal: Positive for neck pain. Skin: Negative. Allergic/Immunologic: Negative. Neurological: Negative for syncope and facial asymmetry. Hematological: Does not bruise/bleed easily. Psychiatric/Behavioral: Negative. PHYSICAL EXAMINATION: Vitals: 08/02/24 1346 BP: 140/80 BP Site: Left Arm BP Postition: Sitting Pulse: 74 Resp: 18 Temp: 36.7 C (98.1 F) TempSrc: Oral SpO2: 99% Weight: 90.4 kg (199 lb 6.4 oz) Height: 165.1 cm (5' 5 ) [...] membranes are moist. Pharynx: No oropharyngeal exudate. Comments: Erythema Eyes: General: Right eye: No discharge. Left [...] normal. ASSESSMENT/PLAN: Jim was seen today for weight check. Diagnoses and all orders for this visit: Class 1 obesity due to excess calories with serious comorbidity and body mass index (BMI) of 33.0 to 33.9 in adult - phentermine (ADIPEX-P) 37.5 mg tablet; Take 1 tablet (37.5 mg total) by mouth every morning before breakfast. Sore throat - POCT rapid strep A Strep throat - penicillin v potassium (VEETIDS) 500 mg tablet; Take 1 tablet (500 mg total) by mouth 2 (two) times daily at 0800 and 1500 for 10 days. Body mass index is 33.18 kg/m . Patient noted to have elevated BMI and the following intervention(s) were applied: Discussed current weight today. Consider healthy food choices, portion control. Avoid sugary beverages and high concentrated sweets. Routine exercise regimen encouraged. Doing well with weight loss. Has lost 15 pounds total for past 8 weeks. Reorder phentermine 37.5 mg oral daily Strep throat. Start penicillin VK as directed for 10 days Change toothbrush. Do not share drinking cups or eating utensils. ALL QUESTIONS ANSWERED Total time spent was 30 minutes: Preparing to see the patient (e.g., review of tests) Obtaining and/or reviewing separately obtained history Performing a medically appropriate examination and/or evaluation Counseling and educating the patient/family/caregiver Ordering medications, tests, or procedures Follow-up: One month FRIDA Zamora 08/02/24 1423 documented in this encounter [facility] 07-05-2024 History of Present illness Narrative Images from the original note were not included. [address] [place] [id number] SUBJECTIVE: Patient ID: Jim Huerta is a 48 y.o. female. Chief Complaint Patient presents with Weight Check Presents for weight loss follow up She has done very well this month. Has lost 7 pounds. States she has been following portion control and better food choices. Tries to increase her activity level. Additional concern today is poison zack rash. 3 days ago she was pulling weeds outdoors. Started with rash on arms and neck yesterday. The following portions of the patient's history were reviewed and updated as appropriate: allergies, current medications, past family history, past medical history, past social history, past surgical history and problem list. Past Surgical History: Procedure Laterality Date SECTION breach COLONOSCOPY DIAGNOSTIC / SCREENING N/A 06/02/2024 Performed by Maci Bach DO at [facility] DILATION AND CURETTAGE OF UTERUS 3 ab and 1 still born //neg for antiphospholipid work up Past Medical History: Diagnosis Date High cholesterol Visual impairment Immunization History Administered Date(s) Administered COVID-19, mRNA, LNP-S, PF, 30mcg/0.3mL Dose 01/08/2021, 01/29/2021, 09/25/2021 Influenza, Injectable, quadrivalent (PF) 07/10/2018, 08/07/2020, 09/03/2021 Influenza, Recombinant, Quadrivalent, Injectable, Preserv 08/05/2019 Influenza, Unspecified 11/04/2013 Pneumococcal Polysaccharide 09/26/2018 SARS-COV-2 (COVID-19) Vaccine, Unspecified 01/29/2021 Tdap 04/29/2014 REVIEW OF SYSTEMS: Review of Systems Constitutional: Negative for chills and fever. HENT: Negative. Eyes: Negative for visual disturbance. Respiratory: Negative for chest tightness and shortness of breath. Cardiovascular: Negative for chest pain and palpitations. Gastrointestinal: Negative. Endocrine: Negative. Genitourinary: Negative for menstrual problem and pelvic pain. Musculoskeletal: Negative. Skin: Positive for rash. Allergic/Immunologic: Negative. Neurological: Negative for syncope and facial asymmetry. Hematological: Does not bruise/bleed easily. Psychiatric/Behavioral: Negative. PHYSICAL EXAMINATION: Vitals: 07/05/24 1525 BP: 136/84 BP Site: Left Arm BP Postition: Sitting Pulse: 65 Resp: 18 Temp: 36.9 C (98.4 F) TempSrc: Oral SpO2: 99% Weight: 94.1 kg (207 lb 6.4 oz) Height: 165.1 cm (5' 5 ) [...] normal. ASSESSMENT/PLAN: Jim was seen today for weight check. Diagnoses and all orders for this visit: Poison zack - methylPREDNISolone (MEDROL, MARTINA,) 4 mg tablet; follow package directions Class 2 obesity due to excess calories with body mass index (BMI) of 35.0 to 35.9 in adult, unspecified whether serious comorbidity present - phentermine (ADIPEX-P) 37.5 mg tablet; Take 1 tablet (37.5 mg total) by mouth every morning before breakfast. Poison zack- start Medrol 4 mg dose pack as directed. Body mass index is 34.51 kg/m . Patient noted to have elevated BMI and the following intervention(s) were applied: Discussed current weight today. Consider healthy food choices, portion control. Avoid sugary beverages and high concentrated sweets. Routine exercise regimen encouraged. Doing well on phentermine. Has lost 7 pounds this past month. Denies shortness of breath,palpitations, or chest pain. ALL QUESTIONS ANSWERED Total time spent was 25 minutes: Preparing to see the patient (e.g., review of tests) Obtaining and/or reviewing separately obtained history Performing a medically appropriate examination and/or evaluation Counseling and educating the patient/family/caregiver Ordering medications, tests, or procedures Follow-up: One month FRIDA Zamora 07/05/24 1639 documented in this encounter [facility] Dr. TATTOFF 06-21-2024 History of Present illness Narrative Images from the original note were not included. [place] [id number] SUBJECTIVE: Patient ID: Jim Huerta is a 48 y.o. female. Chief Complaint Patient presents with Annual Exam Presents for annual physical. Works full-time at [employer]. She does not smoke or consume alcohol Is Type 2 DM, non insulin dependant. Annual Exam Pertinent negatives include no chest pain, chills or fever. The following portions of the patient's history were reviewed and updated as appropriate: allergies, current medications, past family history, past medical history, past social history, past surgical history and problem list. Past Surgical History: Procedure Laterality Date SECTION breach COLONOSCOPY DIAGNOSTIC / SCREENING N/A 06/02/2024 Performed by aMci Bach DO at [facility] DILATION AND CURETTAGE OF UTERUS 3 ab and 1 still born //neg for antiphospholipid work up Past Medical History: Diagnosis Date High cholesterol Visual impairment Immunization History Administered Date(s) Administered COVID-19, mRNA, LNP-S, PF, 30mcg/0.3mL Dose 01/08/2021, 01/29/2021, 09/25/2021 Influenza, Injectable, quadrivalent (PF) 07/10/2018, 08/07/2020, 09/03/2021 Influenza, Recombinant, Quadrivalent, Injectable, Preserv 08/05/2019 Influenza, Unspecified 11/04/2013 Pneumococcal Polysaccharide 09/26/2018 SARS-COV-2 (COVID-19) Vaccine, Unspecified 01/29/2021 Tdap 04/29/2014 REVIEW OF SYSTEMS: Review of Systems Constitutional: Negative for chills and fever. HENT: Negative. Eyes: Negative for visual disturbance. Respiratory: Negative for chest tightness and shortness of breath. Cardiovascular: Negative for chest pain and palpitations. Gastrointestinal: Negative. Endocrine: Negative. Genitourinary: Negative for menstrual problem and pelvic pain. Musculoskeletal: Negative. Skin: Negative. Allergic/Immunologic: Negative. Neurological: Negative for syncope and facial asymmetry. Hematological: Does not bruise/bleed easily. Psychiatric/Behavioral: Negative. PHYSICAL EXAMINATION: Vitals: 06/21/24 1631 BP: 130/80 BP Site: Left Arm BP Postition: Sitting Pulse: 68 Resp: 18 Temp: 36.8 C (98.2 F) TempSrc: Oral SpO2: 98% Weight: 94.9 kg (209 lb 3.2 oz) Height: 165.1 cm (5' [...] normal. ASSESSMENT/PLAN: Jim was seen today for annual exam. Diagnoses and all orders for this visit: Annual physical exam Type 2 diabetes mellitus without complication, without long-term current use of insulin ([facility]) Blood tests for routine general physical examination - POCT Hemoglobin A1c - Comprehensive metabolic panel; Future - Lipid profile; Future - Cancel: Hemoglobin A1c; Future - TSH; Future Colonoscopy screening discussed today. Risk and benefits of procedure explained. Patient recently completed, last month. Tubular adenoma noted. Had positive Cologuard. Labs drawn in office today She has recently been seen by her [employer] OPERATOR HELPER for her yearly follow up Mammogram has been completed this year Education regarding preventative vaccines; encourage yearly influenza and COVID booster. If she wishes to pursue, encouraged to obtain at her local pharmacy. A1c 6% Body mass index is 34.81 kg/m . Patient noted to have elevated BMI and the following intervention(s) were applied: Discussed current weight today. Consider healthy food choices, portion control. Avoid sugary beverages and high concentrated sweets. Routine exercise regimen encouraged. ALL QUESTIONS ANSWERED Total time spent was 30 minutes: Preparing to see the patient (e.g., review of tests) Obtaining and/or reviewing separately obtained history Performing a medically appropriate examination and/or evaluation Counseling and educating the patient/family/caregiver Ordering medications, tests, or procedures Follow-up: 3 months - DM FRIDA Zamora 06/21/24 1705 [facility] History of Present illness Narrative Annual Well Woman Visit 06/21/2024 Ethel Huerta is a pleasant 48 y.o. female who presents for annual improvement director exam. Periods are regular every 28-30 days, lasting 3 weeks . Dysmenorrhea: mild, occurring premenstrually. Cyclic symptoms include none. Denies pelvic pain. Patient declines STD testing today. Complaints today: periods that sometimes last a couple weeks. Relationship status: in a relationship The patient reports that there is not domestic violence in her life. Sexually active: No Sexual concerns: none Patient works: time broker job at [employer] Former smoker, quit years ago Children YES How many One Current contraception: oral progesterone-only contraceptive History of abnormal Pap smear: yes Last pap: 2021 Regular self breast exam: yes-sometimes Last mammogram: -2023 Family history of breast cancer: no Family history of uterine or ovarian cancer: no Family history of pancreatic or prostate cancer: no Family history of colon cancer: no HPV vaccinated: no PHQ9 depression screenin LMP 06/06/2024 OB History 5 Para 2 Term 2 0 AB 3 Living 1 SAB IAB Ectopic Multiple Live Births 1 Obstetric Comments G 5 P 2 , 1 still born 1 c section , 3 ab (antiphospholipid negative work up) The following portions of the patient's history were reviewed and updated as appropriate: allergies, current medications, past family history, past medical history, past social history, past surgical history and problem list. MEDICAL HX Past Medical History: Diagnosis Date High cholesterol Visual impairment SURGICAL HX Past Surgical History: Procedure Laterality Date SECTION breach COLONOSCOPY DIAGNOSTIC / SCREENING N/A 06/02/2024 Performed by Maci Bach DO at [facility] DILATION AND CURETTAGE OF UTERUS 3 ab and 1 still born //neg for antiphospholipid work up FAMILY HX Family History Problem Relation Age of Onset Hypertension Paternal Grandmother Diabetes Paternal Grandmother Hypertension Father Diabetes Father Cancer Father type ? High Cholesterol Father MEDS Current Outpatient Medications Medication Sig Dispense Refill amLODIPine (NORVASC) 5 mg tablet TAKE 1 TABLET(5 MG) BY MOUTH IN THE MORNING 90 tablet 1 blood sugar diagnostic strip 1 strip by miscellaneous route 2 (two) times a day. 60 strip 1 blood-glucose meter [facility] Select type paid for by insurance 1 each 0 glyBURIDE-metFORMIN (GLUCOVANCE) 2.5-500 mg per tablet Take 1 tablet by mouth in the morning and 1 tablet in the evening. Take with meals. 180 tablet 1 lancets (FloovedUCH DELICA PLUS LANCET) 30 gauge [facility] Inject 1 strip into the skin See Admin Instructions. Monitor blood sugar twice daily and as needed 100 each 3 phentermine (ADIPEX-P) 37.5 mg tablet Take 1 tablet (37.5 mg total) by mouth every morning before breakfast. 30 tablet 0 rosuvastatin (CRESTOR) 5 mg tablet Take 1 tablet (5 mg total) by mouth in the morning. 90 tablet 2 norethindrone (INCASSIA) 0.35 mg tablet Take 1 tablet (0.35 mg total) by mouth every morning. TAKE 1 TABLET (0.35 MG TOTAL) BY MOUTH IN THE MORNING 84 tablet 3 No current facility-administered medications for this visit. ALLERGIES Allergies Allergen Reactions Lisinopril Cough Review of Systems Constitutional: Negative. Respiratory: Negative. Negative for chest tightness and shortness of breath. Cardiovascular: Negative. Negative for chest pain and palpitations. Gastrointestinal: Negative. Negative for constipation, diarrhea, nausea and vomiting. Endocrine: Negative. Genitourinary: Positive for menstrual problem. Negative for pelvic pain. Musculoskeletal: Negative. Skin: Negative. Allergic/Immunologic: Negative. Neurological: Negative. Hematological: Negative. Psychiatric/Behavioral: Negative. Objective BP (!) 142/92 Ht 165.1 cm (5' 5 ) Wt 94.3 kg (208 lb) LMP 06/06/2024 BMI 34.61 kg/m Physical Exam Vitals and nursing note reviewed. Constitutional: Appearance: Normal appearance. HENT: Head: Normocephalic and atraumatic. Cardiovascular: Rate and Rhythm: Normal rate and regular rhythm. Pulses: Normal pulses. Heart sounds: Normal heart sounds. Pulmonary: Effort: Pulmonary effort is normal. Breath sounds: Normal breath sounds. Chest: Breasts: Breasts are symmetrical. Right: Normal. No mass, skin change or tenderness. Left: Normal. No mass, skin change or tenderness. Abdominal: General: Bowel sounds are normal. Palpations: Abdomen is soft. Genitourinary: General: Normal vulva. Labia: Right: No rash or lesion. Left: No rash or lesion. Vagina: Normal. Cervix: Normal. Uterus: Normal. Not enlarged and not tender. Adnexa: Right adnexa normal and left adnexa normal. Right: No mass, tenderness or fullness. Left: No mass, tenderness or fullness. Musculoskeletal: General: Normal range of motion. Cervical back: Normal range of motion and neck supple. Skin: General: Skin is warm and dry. Neurological: Mental Status: She is alert and oriented to person, place, and time. Psychiatric: Mood and Affect: Mood normal. Speech: Speech normal. Behavior: Behavior normal. Thought Content: Thought content normal. Judgment: Judgment normal. Assessment/Plan: Jim was seen today for gynecologic exam. Diagnoses and all orders for this visit: Well woman exam with routine gynecological exam Standardized adult depression screening tool completed Surveillance of contraceptive pill - norethindrone (INCASSIA) 0.35 mg tablet; Take 1 tablet (0.35 mg total) by mouth every morning. TAKE 1 TABLET (0.35 MG TOTAL) BY MOUTH IN THE MORNING BMI is above average; Discussed eating tips for weight loss and and exercise steps. Breast self exam technique reviewed and patient encouraged to perform self-exam monthly. Discussed healthy lifestyle modifications. Educational material distributed. Follow up in 1 year for annual improvement director exam. Follow up as needed. Next pap due 2026 per ASCCP guidelines. Discussed taking a multivitamin. Discussed Calcium and Vitamin D for prevention of osteoporosis. Discussed options to help with periods, medication vs surgical. Patient declines. Discussed need for yearly mammogram after 40 yo. Discussed colon cancer screening recommendations to begin at 45 yo, patient to discuss with PCP. All questions answered. JAKOB Dacosta APRN-FRIDA Rea 06/21/24 1507 documented in this encounter [facility] 06-09-2024 History of Present illness Narrative IM PROGRESS NOTE Patient - Jim Huerta Age - 48 y.o. - 1975 ASSESSMENT & PLAN 1. Status post colonoscopy with polypectomy -op report reviewed with the patient 2. Rectal bleeding -secondary to post polypectomy bleeding. Actually fits very classic picture of bleeding 3-7 days following the procedure. No significant drop in hemoglobin, and otherwise asymptomatic. -I advised the patient to continue the clear liquid diet for several more days, then she may reintroduce a soft diet and advance as tolerated. -if she does start to have any more bleeding, she will probably require a relook sigmoidoscopy. 3. Tubular adenoma of colon -I reviewed the results of the recent pathology report with the patient. -3 of the 4 polyps removed were tubular adenomas -the largest 1 at 20 cm was> 1 cm diameter. -patient was advised she will need a recheck colonoscopy in 3 years. Subjective 48-year-old female presents because of issues with post polypectomy bleeding. She had a colonoscopy with polypectomy 7 days ago. The removed polyp was approximately 20 cm from the rectum. About 3 days after the polypectomy, she started noticing some red blood when she had an urge to have a BM, and was passing some clots. She was seen in the emergency room, and a CBC was obtained with a hemoglobin of 13.9 g/dL. She was seen in this office subsequent to that, and was advised to resume a liquid diet, and to continue to monitor her stools. Yesterday, she called the office, and stated that she was still noticing the bright red blood with some urgency to have a BM, and still passing clots, although add an increased frequency. -a repeat CBC was obtained, and showed a value of 11.8 g/dL ([facility]). -the patient is asymptomatic from the standpoint of no pain, bloating, flatus, nausea or vomiting. -the biopsy report from the polyp did return as well, and shows 3 tubular adenomas, including the 20 cm adenoma which exhibited bleeding. The 20 cm polyp suggest that the adenomas extended to the line of resection. The patient reports that since yesterday, she has had no more blood from her rectum, no more clots. A review of systems was negative except for the following: General: weight loss Endocrine: Currently on metformin and glyburide. Most recent A1c 5.8%. Currently trying to lose weight Gastrointestinal: See above. Exam BP 118/80 (BP Site: Left Arm, BP Postition: Sitting) Pulse 55 Temp 36.9 C (98.4 F) (Oral) Resp 18 Ht 165.1 cm (5' 5 ) Wt 94.8 kg (209 lb) LMP 05/15/2024 SpO2 97% BMI 34.78 kg/m Physical Exam Vitals reviewed. Constitutional: General: She is not in acute distress. Appearance: She is obese. She is not toxic-appearing. HENT: Head: Normocephalic. Right Ear: External ear normal. Left Ear: External ear normal. Mouth/Throat: Mouth: Mucous membranes are moist. Eyes: General: No scleral icterus. Cardiovascular: Rate and Rhythm: Normal rate and regular rhythm. Heart sounds: No murmur heard. No gallop. Pulmonary: Effort: Pulmonary effort is normal. Breath sounds: No wheezing or rales. Abdominal: General: There is no distension. Palpations: Abdomen is soft. Tenderness: There is no abdominal tenderness. Skin: General: Skin is warm and dry. Coloration: Skin is not jaundiced. Findings: No bruising. Neurological: Mental Status: She is alert and oriented to person, place, and time. Motor: No weakness. Coordination: Coordination normal. Psychiatric: Mood and Affect: Mood normal. Behavior: Behavior normal. Meds Current Outpatient Medications: amLODIPine (NORVASC) 5 mg tablet, TAKE 1 TABLET(5 MG) BY MOUTH IN THE MORNING, Disp: 90 tablet, Rfl: 1 blood sugar diagnostic strip, 1 strip by miscellaneous route 2 (two) times a day., Disp: 60 strip, Rfl: 1 blood-glucose meter [facility], Select type paid for by insurance, Disp: 1 each, Rfl: 0 glyBURIDE-metFORMIN (GLUCOVANCE) 2.5-500 mg per tablet, Take 1 tablet by mouth in the morning and 1 tablet in the evening. Take with meals., Disp: 180 tablet, Rfl: 1 lancets (ONETOUCH DELICA PLUS LANCET) 30 gauge misc, Inject 1 strip into the skin See Admin Instructions. Monitor blood sugar twice daily and as needed, Disp: 100 each, Rfl: 3 norethindrone (INCASSIA) 0.35 mg tablet, TAKE 1 TABLET (0.35 MG TOTAL) BY MOUTH IN THE MORNING, Disp: 28 tablet, Rfl: 0 phentermine (ADIPEX-P) 37.5 mg tablet, Take 1 tablet (37.5 mg total) by mouth every morning before breakfast., Disp: 30 tablet, Rfl: 0 rosuvastatin (CRESTOR) 5 mg tablet, Take 1 tablet (5 mg total) by mouth in the morning., Disp: 90 tablet, Rfl: 2 Lab Results Orders Only on 06/09/2024 Component Date Value Ref Range Status External Hemoglobin 06/08/2024 6.2 Final External Hematocrit Hct 06/08/2024 35.5 Final External Mcv 06/08/2024 85.5 Final External MCH 06/08/2024 28.4 Final External Mchc 06/08/2024 33.2 Final External Rdw 06/08/2024 13.2 Final External Platelet Count 06/08/2024 274 Final External Mpv 06/08/2024 10.9 Final External Absolute Lymphocyte 06/08/2024 1.4 Final External Monocytes 06/08/2024 0.5 Final External % Basophils 06/08/2024 1.1 Final External Absolute Neutrophils 06/08/2024 4.1 Final External Absolute Lymphocyte 06/08/2024 1.4 Final External Absolute Monocytes 06/08/2024 0.5 Final External Absolute Basophil 06/08/2024 0.1 Final Admission on 06/06/2024, Discharged on 06/06/2024 Component Date Value Ref Range Status White Blood Cells 06/06/2024 7.0 4.0 - 11.0 X10E9/L Final RBC count 06/06/2024 4.91 3.80 - 5.20 X10E12/L Final Hemoglobin 06/06/2024 13.9 11.7 - 15.5 g/dL Final Hematocrit 06/06/2024 41.7 35 - 47 % Final MCV 06/06/2024 85 80 - 100 fL Final MCH 06/06/2024 28.2 27 - 34 pg Final MCHC 06/06/2024 33.2 32 - 36 g/dL Final RDW 06/06/2024 14.2 11.5 - 15.0 % Final Platelets 06/06/2024 283 150 - 450 X10E9/L Final MPV 06/06/2024 9.3 7 - 12 fL Final % neutrophils 06/06/2024 75.5 % Final % lymphocytes 06/06/2024 15.2 % Final % monocytes 06/06/2024 6.6 % Final % eosinophils 06/06/2024 1.5 % Final % Basophils 06/06/2024 1.2 % Final Neutrophils Absolute (A) 06/06/2024 5.3 1.5 - 6.6 X10E9/L Final Lymphocytes Absolute 06/06/2024 1.1 1.0 - 3.5 X10E9/L Final Monocytes Absolute 06/06/2024 0.5 0 - 0.9 X10E9/L Final Eosinophils Absolute 06/06/2024 0.1 0.0 - 0.4 X10E9/L Final Basophils Absolute 06/06/2024 0.1 0.0 - 0.2 X10E9/L Final Protime 06/06/2024 11.1 9.8 - 13.2 sec Final Inr 06/06/2024 1.0 0.8 - 1.1 Final aPTT 06/06/2024 34 26 - 37 sec Final Sodium 06/06/2024 137 134 - 146 mmol/L Final Potassium, Bld 06/06/2024 3.1 (L) 3.5 - 5.0 mmol/L Final Chloride 06/06/2024 101 98 - 109 mmol/L Final CO2 06/06/2024 28 22 - 32 mmol/L Final Anion gap 06/06/2024 8 5 - 15 mmol/L Final BUN 06/06/2024 8 5 - 23 mg/dL Final Creatinine 06/06/2024 0.60 0.40 - 1.00 mg/dL Final Glucose 06/06/2024 147 (H) 65 - 99 mg/dL Final Calcium 06/06/2024 8.7 8.5 - 10.5 mg/dL Final eGFR (CKD-EPI)non-race dependent 06/06/2024 >90 >59 ml/min/1.73sq.m Final Admission on 06/02/2024, Discharged on 06/02/2024 Component Date Value Ref Range Status Bedside glucose 06/02/2024 97 65 - 99 mg/dL Final Other Testing No results found. Maci Bach DO., [facility] Office: [phone] documented in this encounter [facility] 06-06-2024 History of Present illness Narrative Patient was seen in the office today regarding her post polypectomy bleeding. She had a large (> 10 mm pedunculated polyp) removed 3 days ago. There was some mild oozing noted immediately post removal, and required placement of 2 endoscopic clips, and infusion of dilute epinephrine with resolution of the oozing blood. -the patient was sent home on clear liquid diet for the next day, and was told she could advance the diet if she did not have any further bleeding. -the patient reports she had black stool after the surgery, which was unchanged from her stool prior to the colonoscopy. -she had no bright red blood for 2 days following the procedure, and advanced her diet to regular. -earlier today, she began noticing some clots and some bright red bleeding from her bowels. She feels some slight cramping, but does report she has been bearing down, pushing to get rid of the bleeding. She has had no lightheadedness or dizziness. No palpitations, no nausea or vomiting. Still is feeling hungry. -she became frightened and went to the emergency department earlier today, and was found to have stable vital signs, and her hemoglobin was 13.9 g/dL. Her current time line of events and symptoms are consistent with delayed post polypectomy bleeding. Most frequently can occur 2-7 days after the procedure, although can last longer. This was relayed to the patient and she was reassured that her vital signs are stable, her current blood count is normal, and we are not seeing anything dangerous at this point. I advised the patient to go back to a liquid diet for the next 5 days. She should avoid straining, bearing down, and attempting to push out the blood or clots. She should remain off of any OTC supplements of any sort. She should remain off of aspirin or aspirin products. Her metformin may also be contributing to her lack of hemostasis. -I gave her an order to obtain a CBC in 3 days to re-evaluate her hemoglobin -if her symptoms would worsen, such as pure red bleeding without clots, pain, cramping, lightheadedness or dizziness, she should report to the emergency room immediately. documented in this encounter [facility] 06-06-2024 History of Present illness Narrative Images from the original note were not included. [address] [place] [facility] [id number] SUBJECTIVE: Patient ID: Jim Huerta is a 48 y.o. female. Chief Complaint Patient presents with Weight Loss Bood from Colonoscopy Presents for weight loss discussion. States she is frustrated with her current weight. Has done well with weight loss in the past on keto dieting. She would like to discuss medication assistance today. States her sister is taking phentermine and has done very well. She would like to try the same medication. Risk factors include hypertension, type 2 DM, and mixed hyperlipidemia. States she went to the ER today for evaluation of blood in stool. Had colonoscopy last Wednesday. Did have polyps removed. States she noticed her stools were dark, almost black in color yesterday. Today, she reports passing small red clots while sitting on the toilet. Had CBC with diff drawn, results were normal. The following portions of the patient's history were reviewed and updated as appropriate: allergies, current medications, past family history, past medical history, past social history, past surgical history and problem list. Past Surgical History: Procedure Laterality Date SECTION breach COLONOSCOPY DIAGNOSTIC / SCREENING N/A 06/02/2024 Performed by Maci Bach DO at [facility] DILATION AND CURETTAGE OF UTERUS 3 ab and 1 still born //neg for antiphospholipid work up Past Medical History: Diagnosis Date Diabetes mellitus type 2, controlled ([facility]) High cholesterol Hypertension Obesity (BMI 35.0-39.9 without comorbidity) Visual impairment Immunization History Administered Date(s) Administered COVID-19, mRNA, LNP-S, PF, 30mcg/0.3mL Dose 01/08/2021, 01/29/2021, 09/25/2021 Influenza, Injectable, quadrivalent (PF) 07/10/2018, 08/07/2020, 09/03/2021 Influenza, Recombinant, Quadrivalent, Injectable, Preserv 08/05/2019 Influenza, Unspecified 11/04/2013 Pneumococcal Polysaccharide 09/26/2018 SARS-COV-2 (COVID-19) Vaccine, Unspecified 01/29/2021 Tdap 04/29/2014 REVIEW OF SYSTEMS: Review of Systems Constitutional: Negative for chills and fever. HENT: Negative. Eyes: Negative for visual disturbance. Respiratory: Negative for chest tightness and shortness of breath. Cardiovascular: Negative for chest pain and palpitations. Gastrointestinal: Negative. Endocrine: Negative. Genitourinary: Negative for menstrual problem and pelvic pain. Musculoskeletal: Negative. Skin: Negative. Allergic/Immunologic: Negative. Neurological: Negative for syncope and facial asymmetry. Hematological: Does not bruise/bleed easily. Psychiatric/Behavioral: Negative. PHYSICAL EXAMINATION: Vitals: 06/06/24 1344 BP: 128/80 BP Site: Left Arm BP Postition: Sitting Pulse: 67 Resp: 18 Temp: 36.5 C (97.7 F) TempSrc: Oral SpO2: 97% Weight: 97.2 kg (214 lb 3.2 oz) Height: 165.1 cm (5' [...] normal. ASSESSMENT/PLAN: Jim was seen today for weight loss. Diagnoses and all orders for this visit: Class 2 obesity due to excess calories with body mass index (BMI) of 35.0 to 35.9 in adult, unspecified whether serious comorbidity present - Discontinue: phentermine (ADIPEX-P) 37.5 mg tablet; Take 1 tablet (37.5 mg total) by mouth every morning before breakfast. - phentermine (ADIPEX-P) 37.5 mg tablet; Take 1 tablet (37.5 mg total) by mouth every morning before breakfast. Body mass index is 35.64 kg/m . Patient noted to have elevated BMI and the following intervention(s) were applied: Discussed current weight today. Consider healthy food choices, portion control. Avoid sugary beverages and high concentrated sweets. Routine exercise regimen encouraged. Educated patient regarding phentermine 37.5 mg oral daily. Potential side effects. Limit caffeine and avoid pseudoephedrine products while taking this medication. Agreeable to proceed with medication. Patient was seen by Dr. Maci Bach during visit today. Physician spoke with patient regarding blood in stool following colonoscopy done on Wednesday. ALL QUESTIONS ANSWERED Total time spent was 25 minutes: Preparing to see the patient (e.g., review of tests) Obtaining and/or reviewing separately obtained history Performing a medically appropriate examination and/or evaluation Counseling and educating the patient/family/caregiver Ordering medications, tests, or procedures Follow-up: One month Weight check FRIDA Zamora 06/06/24 1707 documented in this encounter [facility] 06-06-2024 Miscellaneous Notes Patient called and she is still bleeding from her anus. She had a colonoscopy with you last Wednesday. You are full today I told her to call in the morning for same day of if she is really worried about it that she can go to the ER. She also comes in today to see Renzo if you would be able to pop in Message noted. I will see her when she comes to see Bhavin today. Noted she also went to ER this morning Message noted. documented in this encounter [facility] 06-06-2024 Telephone encounter Note Patient called and she is still bleeding from her anus. She had a colonoscopy with you last Wednesday. You are full today I told her to call in the morning for same day of if she is really worried about it that she can go to the ER. She also comes in today to see Renzo if you would be able to pop in [facility] 06-06-2024 Telephone encounter Note Message noted. I will see her when she comes to see Bhavin today. [facility] 06-06-2024 Telephone encounter Note Noted she also went to ER this morning [facility] 06-06-2024 Telephone encounter Note Message noted. [facility] 06-06-2024 Miscellaneous Notes Refill sent 03/20/24 for 3 month supply with no refills as pt is due for annual exam (last annual 04/27/23). Can you please reach out to patient to schedule. Orders Placed or Reconciled This Encounter Medications norethindrone (INCASSIA) 0.35 mg tablet Sig: TAKE 1 TABLET (0.35 MG TOTAL) BY MOUTH IN THE MORNING Dispense: 28 tablet Refill: 0 Thanks - FRIDA Paz 06/06/24 2:26 PM Patient advised of RX sent & scheduled for Annual exam on 06/20/24. documented in this encounter [facility] 06-06-2024 Telephone encounter Note Refill sent 03/20/24 for 3 month supply with no refills as pt is due for annual exam (last annual 04/27/23). Can you please reach out to patient to schedule. Orders Placed or Reconciled This Encounter Medications norethindrone (INCASSIA) 0.35 mg tablet Sig: TAKE 1 TABLET (0.35 MG TOTAL) BY MOUTH IN THE MORNING Dispense: 28 tablet Refill: 0 Thanks - FRIDA Paz 06/06/24 2:26 PM [facility] 06-06-2024 Telephone encounter Note Patient advised of RX sent & scheduled for Annual exam on 06/20/24. [facility] 06-01-2024 Nurse Note Preoperative Education Checklist- General Surgery date: 06/02/24 Surgery time: 1230p Arrival time: 1130a 1. Bring a photo ID and your insurance card with you the day of surgery. You will check in at the main lobby of the [facility]- registration desk is straight ahead as soon as you walk in. Tell them you are here for surgery. 2. If you have a Living Will/Durable Power of Prekindergarten Teacher for Health Care that is not on file here, please bring a copy the day of surgery. 3. Please shower/bathe the night before surgery with the provided soap or wipes. Do not shower the morning of surgery- you will do use wipes when you arrive here at the hospital before getting into your surgical gown. Do not shave the area of your procedure for 2 days prior to your surgery. 4. NO powder, lotion, perfume/cologne, aftershave, make-up, deodorant, or hair products after you have bathed. 5. NO nail cuban/acrylic on at least one finger. If you are having a hand, wrist or foot surgery then all nail cuban and artificial/acrylic nails must be removed from that hand or foot. 6. Avoid ALL Aspirin and non-steroidal anti-inflammatory drugs and certain vitamins (Ibuprofen, Advil, Aleve, Excedrin, Meloxicam, Celebrex, fish/krill oil, etc.) for 7 days prior to surgery as instructed by your surgeon and/or your prescribing doctor. Tylenol IS ALLOWED. If you are on Ticlid, Xarelto, Eliquis, Pradaxa, Plavix or Coumadin, please check with your prescribing doctor for instructions for when to stop them. 7. If you use an inhaler, continue to use it routinely. 8. Nothing to eat or drink (not even water, gum, mints, or hard candy!) AFTER midnight prior to your surgery. 9. Take only medications that you are instructed to on the morning of surgery with a TINY SIP OF WATER. 10. Choose a responsible adult that will be able to drive you home when you are discharged from your hospital stay for your surgery and can stay with you in your home for 24 hours after your procedure. You must NOT drive any vehicle or operate any machinery for 24 hours after surgery. 11. When you dress for your appointment, please wear loose fitting clothing that is appropriate to accommodate your surgical area procedure. BRING WITH YOU ANY DEVICES YOU MAY NEED: PENG hose, ice machine, sling/swath, brace or special shoe, oversized zip-up or button up shirt, CPAP machine if staying overnight. 12. Do NOT wear jewelry, watches, or any piercings or metal for surgery- leave these valuables and money at home. 13. Do NOT wear contact lenses for surgery- glasses are okay if needed. 14. The anesthesiologist will talk with you the day of surgery and will ask you to sign a Consent Form. 15. Refrain from smoking or any type of tobacco use for at least 8 hours and marijuana for 24 hours prior to arrival for your surgery. 16. If a GREEN BLOOD band is given to you, please bring it with you for the day of surgery. 17. Notify your surgeon if you develop any illness before your surgery. 18. If you are staying overnight, please DO NOT BRING your home medications with you. 19. If you have any questions prior to surgery, please call the Preadmission Testing office at [phone], Mon.-Fri. 7 a.m.-3 p.m. Leave a voicemail if needed. Pre-Surgery Instructions: Medication Instructions amLODIPine (NORVASC) 5 mg tablet Take morning of procedure blood sugar diagnostic strip Stop taking 0 days prior to procedure blood-glucose meter misc Take morning of procedure glyBURIDE-metFORMIN (GLUCOVANCE) 2.5-500 mg per tablet Stop taking 0 days prior to procedure lancets (ONETOUCH DELICA PLUS LANCET) 30 gauge misc Take morning of procedure norethindrone (INCASSIA) 0.35 mg tablet Stop taking 0 days prior to procedure rosuvastatin (CRESTOR) 5 mg tablet Stop taking 0 days prior to procedure [facility] 06-01-2024 Miscellaneous Notes Preoperative Education Checklist- General Surgery date: 06/02/24 Surgery time: 1230p Arrival time: 1130a 1. Bring a photo ID and your insurance card with you the day of surgery. You will check in at the main lobby of the [facility]- registration desk is straight ahead as soon as you walk in. Tell them you are here for surgery. 2. If you have a Living Will/Durable Power of Prekindergarten Teacher for Health Care that is not on file here, please bring a copy the day of surgery. 3. Please shower/bathe the night before surgery with the provided soap or wipes. Do not shower the morning of surgery- you will do use wipes when you arrive here at the hospital before getting into your surgical gown. Do not shave the area of your procedure for 2 days prior to your surgery. 4. NO powder, lotion, perfume/cologne, aftershave, make-up, deodorant, or hair products after you have bathed. 5. NO nail cuban/acrylic on at least one finger. If you are having a hand, wrist or foot surgery then all nail cuban and artificial/acrylic nails must be removed from that hand or foot. 6. Avoid ALL Aspirin and non-steroidal anti-inflammatory drugs and certain vitamins (Ibuprofen, Advil, Aleve, Excedrin, Meloxicam, Celebrex, fish/krill oil, etc.) for 7 days prior to surgery as instructed by your surgeon and/or your prescribing doctor. Tylenol IS ALLOWED. If you are on Ticlid, Xarelto, Eliquis, Pradaxa, Plavix or Coumadin, please check with your prescribing doctor for instructions for when to stop them. 7. If you use an inhaler, continue to use it routinely. 8. Nothing to eat or drink (not even water, gum, mints, or hard candy!) AFTER midnight prior to your surgery. 9. Take only medications that you are instructed to on the morning of surgery with a TINY SIP OF WATER. 10. Choose a responsible adult that will be able to drive you home when you are discharged from your hospital stay for your surgery and can stay with you in your home for 24 hours after your procedure. You must NOT drive any vehicle or operate any machinery for 24 hours after surgery. 11. When you dress for your appointment, please wear loose fitting clothing that is appropriate to accommodate your surgical area procedure. BRING WITH YOU ANY DEVICES YOU MAY NEED: PENG hose, ice machine, sling/swath, brace or special shoe, oversized zip-up or button up shirt, CPAP machine if staying overnight. 12. Do NOT wear jewelry, watches, or any piercings or metal for surgery- leave these valuables and money at home. 13. Do NOT wear contact lenses for surgery- glasses are okay if needed. 14. The anesthesiologist will talk with you the day of surgery and will ask you to sign a Consent Form. 15. Refrain from smoking or any type of tobacco use for at least 8 hours and marijuana for 24 hours prior to arrival for your surgery. 16. If a GREEN BLOOD band is given to you, please bring it with you for the day of surgery. 17. Notify your surgeon if you develop any illness before your surgery. 18. If you are staying overnight, please DO NOT BRING your home medications with you. 19. If you have any questions prior to surgery, please call the Preadmission Testing office at [phone], Mon.-Fri. 7 a.m.-3 p.m. Leave a voicemail if needed. Pre-Surgery Instructions: Medication Instructions amLODIPine (NORVASC) 5 mg tablet Take morning of procedure blood sugar diagnostic strip Stop taking 0 days prior to procedure blood-glucose meter misc Take morning of procedure glyBURIDE-metFORMIN (GLUCOVANCE) 2.5-500 mg per tablet Stop taking 0 days prior to procedure lancets (ONETOUCH DELICA PLUS LANCET) 30 gauge misc Take morning of procedure norethindrone (INCASSIA) 0.35 mg tablet Stop taking 0 days prior to procedure rosuvastatin (CRESTOR) 5 mg tablet Stop taking 0 days prior to procedure documented in this encounter [facility] 03-20-2024 Miscellaneous Notes Patient due for annual next month. One (three month) refill sent. documented in this encounter [facility] 03-20-2024 Telephone encounter Note Patient due for annual next month. One (three month) refill sent. [facility] 03-16-2024 History of Present illness Narrative Images from the original note were not included. [address] [id number] SUBJECTIVE: Patient ID: Jim Huerta is a 48 y.o. female. Chief Complaint Patient presents with Diabetes Presents for DM follow up today Offers no complaints Diabetes She presents for [...] routinely checking. An ANGELO inhibitor/angiotensin II receptor lynne is being taken. 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 Hyperlipidemia This is a chronic problem. The [...] for visual disturbance. Respiratory: Negative for chest tightness and shortness of breath. Cardiovascular: Negative for palpitations. Gastrointestinal: Negative. Endocrine: Negative. Genitourinary: Negative for menstrual problem and pelvic pain. Musculoskeletal: Negative. Skin: Negative. Allergic/Immunologic: Negative. Neurological: Negative for syncope and facial asymmetry. Hematological: Does not bruise/bleed easily. Psychiatric/Behavioral: Negative. PHYSICAL EXAMINATION: Vitals: 03/16/24 1613 BP: 120/60 BP Site: Left Arm BP Postition: Sitting Pulse: 59 Resp: 20 Temp: 36.7 C (98 F) TempSrc: Oral SpO2: 96% Weight: 97.3 kg (214 lb 9.6 oz) Height: 165.1 cm (5' 5 ) [...] normal. ASSESSMENT/PLAN: Jim was seen today for diabetes. Diagnoses and all orders for this visit: Type 2 diabetes mellitus without complication, without long-term current use of insulin ([facility]) - POCT Hemoglobin A1c - glyBURIDE-metFORMIN (GLUCOVANCE) 2.5-500 mg per tablet; Take 1 tablet by mouth in the morning and 1 tablet in the evening. Take with meals. Essential hypertension - amLODIPine (NORVASC) 5 mg tablet; TAKE 1 TABLET(5 MG) BY MOUTH IN THE MORNING Mixed hyperlipidemia Positive colorectal cancer screening using Cologuard test History of positive Cologuard Completed Cologuard ordered by her FERRYBOAT OPERATOR HELPER. Completed July 2023. Was positive. Patient was referred to general surgery to pursue colonoscopy. She was under the impression positive Cologuard was a false positive as she was one her menses during the time of collection. I educated her positive testing is not due to blood but by DNA testing. Colonoscopy screening discussed today. Risk and benefits of procedure explained. She is agreeable to pursue colonoscopy by Dr. Maci Bach but wants to discuss with her before scheduling. 2. Type 2 DM A1c 5.8% today. Was 7.3% Improvement with Glucovance 2.5 mg-500 mg oral twice daily Encourage routine home blood sugar monitoring, diet modification, and exercise regimen. Daily self skin foot checks Yearly eye exams or as directed by eye provider 3. HTN Controlled Continue amlodipine 5 mg oral daily 4. Mixed hyperlipidemia Continue rosuvastatin 5 mg oral daily ALL QUESTIONS ANSWERED Total time spent was 30 minutes: Preparing to see the patient (e.g., review of tests) Obtaining and/or reviewing separately obtained history Performing a medically appropriate examination and/or evaluation Counseling and educating the patient/family/caregiver Ordering medications, tests, or procedures Follow-up: 3 months DM htn FRIDA Zamora 03/16/24 1720 documented in this encounter [facility] Dr. TATTOFF 12-14-2023 History of Present illness Narrative Images from the original note were not included. [address] [place] [id number] SUBJECTIVE: Patient ID: Jim Huerta is a [...] routinely checking. An ANGELO inhibitor/angiotensin II receptor lynne is being taken. 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 Hyperlipidemia This is a chronic problem. The [...] complication, without long-term current use of insulin ([facility]) - POCT Hemoglobin A1c - glyBURIDE-metFORMIN (GLUCOVANCE) [...] Zamora 12/14/23 1652 documented in this encounter [facility] Evaluation note Diagnosis Acute non-recurrent maxillary sinusitis- Primary Pharyngitis, unspecified etiology Acute bronchitis, unspecified organism Viral diarrhea documented in this encounter [facility] Healthcare[facility]* Diagnosis Acute bacterial sinusitis- Primary Acute sinusitis, unspecified Class 1 obesity due to excess calories with serious comorbidity and body mass index (BMI) of 33.0 to 33.9 in adult [facility] Diagnosis Type 2 diabetes mellitus without complication, without long-term current use of insulin ([facility])- Primary Essential hypertension Unspecified essential hypertension Class 1 obesity due to excess calories with serious comorbidity and body mass index (BMI) of 33.0 to 33.9 in adult Mixed hyperlipidemia documented in this encounter [facility]* Diagnosis Type 2 diabetes mellitus without complication, without long-term current use of insulin ([facility]) Essential hypertension Unspecified essential hypertension documented in this encounter [facility]* Diagnosis Class 1 obesity due to excess calories without serious comorbidity with body mass index (BMI) of 31.0 to 31.9 in adult documented in this encounter [facility]* Diagnosis Type 2 diabetes mellitus without complication, without long-term current use of insulin ([facility])- Primary Essential hypertension Unspecified essential hypertension Mixed hyperlipidemia Positive colorectal cancer screening using Cologuard test documented in this encounter [facility]* Diagnosis Mixed hyperlipidemia documented in this encounter [facility]* Diagnosis Surveillance of contraceptive pill Surveillance of previously prescribed contraceptive pill documented in this encounter [facility]* Diagnosis Type 2 diabetes mellitus without complication, without long-term current use of insulin ([facility])- Primary Essential hypertension Unspecified essential hypertension Mixed hyperlipidemia documented in this encounter [facility]* Diagnosis Mixed hyperlipidemia documented in this encounter [facility]* Diagnosis Surveillance of contraceptive pill Surveillance of previously prescribed contraceptive pill documented in this encounter [facility]* Diagnosis Class 2 obesity due to excess calories with body mass index (BMI) of 35.0 to 35.9 in adult, unspecified whether serious comorbidity present- Primary documented in this encounter [facility]* Diagnosis Rectal bleeding- Primary Hemorrhage of rectum and anus documented in this encounter [facility]* Diagnosis Status post colonoscopy with polypectomy- Primary Other postprocedural status Rectal bleeding Hemorrhage of rectum and anus Tubular adenoma of colon Benign neoplasm of colon documented in this encounter [facility]* Diagnosis Well woman exam with routine gynecological exam- Primary Routine gynecological examination Standardized adult depression screening tool completed Surveillance of contraceptive pill Surveillance of previously prescribed contraceptive pill [facility] Diagnosis Annual physical exam- Primary Routine general medical examination at a health care facility Blood tests for routine general physical examination Laboratory examination ordered as part of a routine general medical examination [facility] Mixed hyperlipidemia [facility] Diagnosis Strep throat- Primary Streptococcal sore throat Class 1 obesity due to excess calories with serious comorbidity and body mass index (BMI) of 33.0 to 33.9 in adult Sore throat Acute pharyngitis documented in this encounter [facility]* Diagnosis Poison zack- Primary Contact dermatitis and other eczema due to plants (except food) Class 2 obesity due to excess calories with body mass index (BMI) of 35.0 to 35.9 in adult, unspecified whether serious comorbidity present [facility] Class 1 obesity due to excess calories with serious comorbidity and body mass index (BMI) of 33.0 to 33.9 in adult [facility] Diagnosis Type 2 diabetes mellitus without complication, without long-term current use of insulin ([facility]) Essential hypertension Unspecified essential hypertension [facility] Diagnosis Chalazion of right upper eyelid- Primary Preseptal cellulitis Abscess of eyelid documented in this encounter [facility] HealthcareEvaluation note* Diagnosis Preseptal cellulitis- Primary Abscess of eyelid documented in this encounter [facility] HealthcareEvaluation note* Diagnosis Type 2 diabetes mellitus without complication, without long-term current use of insulin ([facility])- Primary Mixed hyperlipidemia Benign essential HTN documented in this encounter [facility]* Diagnosis Mixed hyperlipidemia [facility] Essential hypertension Unspecified essential hypertension Type 2 diabetes mellitus without complication, without long-term current use of insulin ([facility]) documented in this encounter [facility] SystemInstructions* Attachments The following attachments cannot be sent through Care Everywhere. * Sinusitis in adults (Citizen Of [place]) [facility]* Attachments The following attachments cannot be sent through Care Everywhere. * Diabetes and diet ([place]izen [place]) * Body Mass Index, Adult ([place]) * Health risks of obesity ([place]izen [place]) documented in this [facility] SystemInstructionsNot on file documented in this [facility]Inst[facility]* Attachments The following attachments cannot be sent through Care Everywhere. * Body Mass Index, Adult (Citizen [place]) documented in this [facility]Instructions* Attachments The following attachments cannot be sent through Care Everywhere. * High Blood Pressure ED (Citizen [place]) documented in this [facility] SystemInstructionsNot on file documented in this [facility] SystemInstructionsNot on file documented in this [facility] SystemInstructions* Attachments The following attachments cannot be sent through Care Everywhere. * Blood Glucose Monitoring (Citizen [place]) documented in this [facility] SystemInstructionsNot on file documented in this [facility] SystemInstructionsNot on file documented in this [facility] SystemInstructionsNot on file documented in this [facility]Not [facility] file documented in this [facility]* Attachments The following attachments cannot be sent through Care Everywhere. * Norethindrone, ADULT ([place]izen [place]) * Calcium and vitamin D for bone health ([place]izen [place]) * Perimenopause ([place]izen [place]) documented in this [facility] SystemInstructions* Attachments The following attachments cannot be sent through Care Everywhere. * Yearly Physical for Adults (Citizen [place]) documented in this [facility]Instructions* Attachments The following attachments cannot be sent through Care Everywhere. * Strep Throat ED (Citizen [place]) documented in this [facility] SystemInstructions* Attachments The following attachments cannot be sent through Care Everywhere. * Body Mass Index, Adult (Citizen [place]) documented in this [facility] SystemInstructionsNot on file documented in this [facility]* Attachments The following attachments cannot be sent through Care Everywhere. * Blood Glucose Monitoring (Citizen [place]) documented in this [facility] SystemInstructionsNot on file documented in this [facility] Summary Purpose Family History No Family History [...] and content) DATE CREATED AUTHOR 09/07/2022 [facility] DATE CREATED AUTHOR AUTHOR'S ORGANIZ ATION 06/07/2024 [facility] DATE CREATED AUTHOR AUTHOR'S ORGANIZ ATION 06/23/2024 [facility] DATE CREATED AUTHOR AUTHOR'S ORGANIZ ATION 12/15/2024 [facility] EPIC DATE CREATED AUTHOR AUTHOR'S ORGANIZ ATION 02/02/2025 [facility] DATE CREATED AUTHOR AUTHOR'S ORGANIZ ATION 07/13/2025 [facility] Reason for Visit (unrecogniz ed section and content) Reason Comments Weight Check Reason Comments Weight Check Diabetes Hypertension Reason Comments Med Refill Reason Comments Diabetes Reason Onset Date Comments Med Refill 03/17/2024 Reason Comments Diabetes Hypertension Reason Comments Weight Loss Bood from Colonoscop y Reason Comments go over results Reason Comments Gynecologic Exam Pt is here for dread keyes exam. Reason Comments Annual Exam Reason Onset Date Comments Med Refill 06/26/2024 Reason Comments Eyelid Mass Blepharitis Reason Comments Follow-up Reason Comments weight check Diabetes Reason Onset Date Comments Med Refill 05/28/2025 Care Teams (unrecognized sec tion and content) Venetian Blind Washer Relationship Specialty Start Date End Date Bhavin Lopez [facility] [address] [place] [phone] PCP - General Family Medicine 06/06/24 Venetian Blind Washer Relationship Specialty Start Date End Date Bhavin Lopez [facility] [address] [place] [id number] PCP - General Family Medicine 06/06/24 Venetian Blind Washer Relationship Specialty Start Date End Date Bhavin Lopez APRNFOOTBALL PAD REPAIRER [address] [place] [address] PCP - General Family Medicine 07/14/19 Venetian Blind Washer Relationship Specialty Start Date End Date Bhavin Lopez [facility] [address] [place] [address] PCP - General Family Medicine 06/06/24 Venetian Blind Washer Relationship Specialty Start Date End Date Bhavin Lopez [facility] [address] [place] [address] PCP - General Family Medicine 07/14/19 Venetian Blind Washer Relationship Specialty Start Date End Date Bhavin Lopez [facility] [address] [place] [address] PCP - General Family Medicine 07/14/19 Venetian Blind Washer Relationship Specialty Start Date End Date Bhavin Lopez [facility] [address] [place] [address] PCP - General Family Medicine 07/14/19 Venetian Blind Washer Relationship Specialty Start Date End Date Bhavin Lopez [facility] [address] [place] [address] PCP - General Family Medicine 07/14/19 Venetian Blind Washer Relationship Specialty Start Date End Date Bhavin Lopez [facility] [address] [place] [address] PCP - General Family Medicine 07/14/19 Venetian Blind Washer Relationship Specialty Start Date End Date Bhavin Lopez [facility] [address] [place] [address] PCP - General Family Medicine 06/06/24 Venetian Blind Washer Relationship Specialty Start Date End Date [facility] [address] [place] [address] PCP - General Family Medicine 06/06/24 Venetian Blind Washer Relationship Specialty Start Date End Date Bhavin Lopez [facility] [address] [place] [address] PCP - General Family Medicine 06/06/24 Venetian Blind Washer Relationship Specialty Start Date End Date Bhavin Lopez [facility] [address] [place] [address] PCP - General Family Medicine 06/06/24 Venetian Blind Washer Relationship Specialty Start Date End Date Bhavin Lopez [facility] [address] [place] [address] PCP - General Family Medicine 06/06/24 Venetian Blind Washer Relationship Specialty Start Date End Date Bhavin Lopez CRNP [address] [place] [address] Referring Physician Nurse Practitioner 12/11/24 Venetian Blind Washer Relationship Specialty Start Date End Date Bhavin Lopez CRNP [address] [place] [address] Referring Physician Nurse Practitioner 12/11/24 Venetian Blind Washer Relationship Specialty Start Date End Date Bhavin Lopez CRNP [address] [place] [address] Referring Physician Nurse Practitioner 12/11/24 Venetian Blind Washer Relationship Specialty Start Date End Date Bhavin Lopez, [facility] [address] [place] [address] PCP - General Family Medicine 06/06/24 Venetian Blind Washer Relationship Specialty Start Date End Date Jose Juan W[place], [facility] [address] [place] [address] PCP - General Internal Medicine 05/16/25 Venetian Blind Washer Relationship Specialty Start Date End Date Jose Juan [place], [facility] [address] [place] [address] PCP - General Internal Medicine 05/16/25 FOR RECORDS PERTAINING TO PATIENTS WHO ARE [...] BE BASED ON THE PRIMARY CLINICAL RECORDS. [facility]. provides no warranty or guarantee of the accuracy or completeness of information in this document.
[2025-07-20 08:44] LABS: Hematocrit 42.8 % (36.0-48.0); Hemoglobin 14.3 g/dL (12.0-16.0); Immature Granulocytes Abs Auto 0.01 10^3/uL (0.00-0.03); Immature Granulocytes Pct Auto 0.1 % (0.0-0.5); Lymphocytes Absolute Auto 1.5 10^3/uL (1.2-3.8); Mean Corpuscular HGB Conc 33.4 g/dL (29.9-35.2); Mean Corpuscular Hemoglobin 27.9 pg (26.7-34.0); Mean Corpuscular Volume 83.6 fL (81.0-99.0); Platelet Count 285 10^3/uL (150-450); Red Blood Count 5.12 10^6/uL (4.20-5.40); White Blood Count 6.8 10^3/uL (4.0-11.0)
[2025-07-20 09:14] LABS: Alanine Aminotransferase 70 U/L (14-59); Albumin Globulin Ratio 1.0; Albumin Level 3.7 g/dL (3.4-5.0); Alkaline Phosphatase 83 U/L (46-116); Anion Gap 12.9; Aspartate Amino Transferase 21 U/L (15-37); Blood Urea Nitrogen 6.0 mg/dL (7.0-18.0); Calcium 8.6 mg/dL (8.5-10.1); Carbon Dioxide 30.2 mmol/L (21.0-32.0); Chloride 100 mmol/L (98-107); Cholesterol 140 mg/dL (<=200); Estimated GFR (African America >60 (>=60 mL/min/1.73m^2); Estimated GFR (Non-African Ame >60 (>=60 mL/min/1.73m^2); Free T3 2.10 pg/mL (2.18-3.98); Globulin 3.7 g/dL; Glucose 117 mg/dL (74-106); HDL Cholesterol 44 mg/dL (40-60); Potassium 3.1 mmol/L (3.5-5.1); Sodium 140 mmol/L (136-145); Thyroid Stimulating Hormone 4.698 uIU/mL (0.358-3.740); Total Protein 7.4 g/dL (6.4-8.2); Triglycerides 179 mg/dL (<=150); VLDL CHOLESTEROL 35.8 mg/dL
== END 2025-07-20 08:15 | disposition home or self-care (01) ==
PROVIDERS: PCP Family Medicine; Visit Provider Family Medicine
DX: E78.00 Pure hypercholesterolemia, unspecified (principal); I10 Essential (primary) hypertension; E11.9 Type 2 diabetes mellitus without complications
CPT/HCPCS: 36415; 80053; 80061; 83036; 84436; 84443; 84481; 85025